=== PATIENT | female | born 1940 | race Hispanic/Latino ===

== ENCOUNTER 2016-08-26 07:43 | Day surgery (SDC) | payer MEDICARE ==
[2016-08-18 10:55] VITALS: BMI 29.5
[2016-08-26] MEDS ORDERED: Propofol 10 mg/ml Inj (20 ML) ONE (09:40)
[2016-08-26] MEDS ORDERED: Midazolam 2 MG/2 ML VIAL ONE (09:40)
[2016-08-26 11:20] VITALS: BP 116/67; PULSE 68; RESP 16; TEMP 98.1; O2SAT 98
== END 2016-08-26 11:38 | disposition home or self-care (01) ==
LOC: ENDO 07:43
PROVIDERS: ATTEND Specialist
DX: D12.4 Benign neoplasm of descending colon (principal); K57.30 Diverticulosis of large intestine without perforation or abscess without bleeding; K64.8 Other hemorrhoids; Z12.11 Encounter for screening for malignant neoplasm of colon; E03.9 Hypothyroidism, unspecified; J45.909 Unspecified asthma, uncomplicated; J44.9 Chronic obstructive pulmonary disease, unspecified; I25.2 Old myocardial infarction; I25.10 Atherosclerotic heart disease of native coronary artery without angina pectoris; I73.9 Peripheral vascular disease, unspecified; E78.5 Hyperlipidemia, unspecified; Z90.49 Acquired absence of other specified parts of digestive tract; Z88.2 Allergy status to sulfonamides; Z88.8 Allergy status to other drugs, medicaments and biological substances; D56.9 Thalassemia, unspecified; R19.7 Diarrhea, unspecified
CPT/HCPCS: 45380; 87045; 87177; 87209; 87324; 88305; J2250; J2704

== ENCOUNTER 2017-06-04 12:33 | Inpatient (IN) | payer MEDICARE ==
[2017-06-04 12:40] VITALS: BMI 26.4
[2017-06-04] MEDS ORDERED: Sodium Chloride 0.9% 1,000 ML IV SCH (13:45)
[2017-06-04 13:56] LABS: BASO # 0.01 K/mm3 (0.0-2.0); BASO % 0.2 % (0.0-3.0); EOS % 0.6 % (1.5-5.0); GRAN # 3.07 (1.4-6.5); GRAN % 64.1 % (50.0-68.0); HEMOGLOBIN 7.7 g/dL (12.0-16.0); LYMPH # 1.3 (1.2-3.4); LYMPH % 26.3 % (22.0-35.0); MEAN CELL VOLUME 66.6 fl (80.0-105.0); MEAN CORPUSCULAR HEMOGLOBIN 21.3 pg (25.0-35.0); MEAN PLATELET VOLUME 9.7 fl (7.0-11.0); MONO # 0.4 (0.1-0.6); MONO % 8.8 % (1.0-6.0); RBC 3.62 10^6/uL (3.5-6.1); RED CELL DISTRIBUTION WIDTH 17.2 % (11.5-14.5); WHITE BLOOD COUNT 4.8 10^3/ul (4.5-11.0)
--- NOTE | 2017-06-04 13:57 | RAD ---
HISTORY: r/o infiltrate COMPARISON: 11/14/2015 FINDINGS: LUNGS: No active pulmonary disease. PLEURA: No significant pleural effusion identified, no pneumothorax apparent. CARDIOVASCULAR: Normal. OSSEOUS STRUCTURES: No significant abnormalities. VISUALIZED UPPER ABDOMEN: Normal. OTHER FINDINGS: None. IMPRESSION: No active disease.
[2017-06-04 14:06] LABS: ALB/GLOB RATIO 1.2 (1.1-1.8); ALBUMIN 3.6 g/dL (3.0-4.8); ALT/SGPT 36 U/L (7-56); AST/SGOT 25 U/L (14-36); BLOOD UREA NITROGEN 45 mg/dL (7-21); CALCIUM 9.8 mg/dL (8.4-10.5); GFR AFRICAN-AMERICAN 38; GFR NON-AFRICAN AMERICAN 31
[2017-06-04 14:17] LABS: B-TYPE NATRIURETIC PEPTIDE 2340 pg/mL (0-450); TROPONIN I 0.04 ng/mL
--- NOTE | 2017-06-04 14:19 | ED PDOC ---
Arrival/HPI - General Chief Complaint: Weakness/Neurological Deficit Time Seen by Provider: 06/04/17 12:51 Historian: Patient, Spouse () - History of Present Illness Narrative History of Present Illness (Text): 06/04/17 13:46 A 77 year old female, whose past medical history includes hypertension and coronary artery disease, is brought in by and presents to the emergency department for generalized weakness, confusion, decreased PO intake. Per , patient had CT and Carotid Ultrasound done 2 days ago, which was arranged by PMD. Patient denies any fever, cough, shortness of breath, chest pain, abdominal pain, nausea, vomiting, heamturia, bloody/dark stool, or any other complaints at this time. PMD: Dr. Galaviz Past Medical History - Provider Review Nursing Documentation Reviewed: Yes - Tetanus Immunization Tetanus Immunization: Up to Date - Cardiac Hx Pacemaker: No - Pulmonary Hx Respiratory Disorders: Yes Hx Asthma: Yes Hx Bronchitis: Yes Hx Chronic Obstructive Pulmonary Disease (COPD): Yes - Neurological Hx Paralysis: No - HEENT Hx HEENT Disorder: No - Hematological/Oncological Hx Blood Transfusions: Yes Hx Blood Transfusion Reaction: No - Integumentary Hx Dermatological Disorder: No - Musculoskeletal/Rheumatological Hx Musculoskeletal Disorders: Yes - Gastrointestinal Hx Diverticulitis: Yes (colon resectin with colostomy 10 yrs ago, colostomy reversal 6 mo later) - Psychiatric Hx Emotional Abuse: No Hx Physical Abuse: No Hx Substance Use: No - Surgical History Hx Appendectomy: Yes Hx Cardiac Catheterization: Yes Hx Cholecystectomy: Yes Hx Hysterectomy: Yes - Anesthesia Hx Anesthesia Reactions: No Hx Malignant Hyperthermia: No - Suicidal Assessment Feels Threatened In Home Enviroment: No Family/Social History - Physician Review Nursing Documentation Reviewed: Yes Family/Social History: No Known Family HX Smoking Status: Former Smoker Hx Alcohol Use: No Hx Substance Use: No Hx Substance Use Treatment: No Allergies/Home Meds Allergies/Adverse Reactions: Allergies sulfamethoxazole [From Bactrim] Allergy (Verified 06/04/17 18:34) ANAPHYLAXIS trimethoprim [From Bactrim] Allergy (Verified 06/04/17 18:34) ANAPHYLAXIS Home Medications: Home Meds Medication Instructions Recorded Confirmed Albuterol Sulfate [Proair Hfa] 1 puff IH PRN PRN 08/18/16 06/04/17 Aspirin [Ecotrin] 81 mg PO DAILY 08/18/16 06/04/17 Clopidogrel [Plavix] 75 mg PO DAILY 08/18/16 06/04/17 Furosemide 40 mg PO DAILY 08/18/16 06/04/17 Cholestyramine [Questran] 4 gm PO DAILY 06/04/17 06/04/17 Lisinopril [Zestril] 2.5 mg PO DAILY 06/04/17 06/04/17 Metoprolol Succinate [Toprol Xl] 25 mg PO DAILY 06/04/17 06/04/17 Review of Systems - Physician Review All systems were reviewed & negative as marked: Yes - Review of Systems Constitutional: Other (generalized weakness). absent: Fevers Respiratory: absent: SOB, Cough Cardiovascular: absent: Chest Pain Gastrointestinal: Appetite Changes (decreased PO intake). absent: Abdominal Pain, Nausea, Vomiting Psychiatric: Other (confusion) Physical Exam Vital Signs Reviewed: Yes Vital Signs Temp Pulse Resp BP Pulse Ox 06/04/17 20:10 98 F 80 19 138/80 97 06/04/17 18:43 97.8 F 79 18 116/62 06/04/17 18:34 98 F 80 19 129/69 98 06/04/17 17:58 97.8 F 88 18 140/65 06/04/17 17:51 98 F 76 18 116/62 99 06/04/17 17:38 98.1 F 75 18 117/59 L 06/04/17 17:34 98.1 F 75 18 117/59 L 100 06/04/17 12:51 98.0 F 79 19 113/51 L 94 L Temperature: Afebrile Blood Pressure: Normal Pulse: Regular Respiratory Rate: Normal Appearance: Positive for: Well-Appearing Pain Distress: None Mental Status: Positive for: Alert and Oriented X 3 - Systems Exam Head: Present: Atraumatic, Normocephalic Pupils: Present: PERRL Extroacular Muscles: Present: EOMI Conjunctiva: Present: Other (pale) Mouth: Present: Moist Mucous Membranes Neck: Present: Normal Range of Motion Respiratory/Chest: Present: Clear to Auscultation, Good Air Exchange. No: Respiratory Distress, Accessory Muscle Use Cardiovascular: Present: Regular Rate and Rhythm, Normal S1, S2. No: Murmurs Abdomen: Present: Normal Bowel Sounds. No: Tenderness, Distention, Peritoneal Signs Back: Present: Normal Inspection Upper Extremity: Present: Normal Inspection. No: Cyanosis, Edema Lower Extremity: Present: Normal Inspection. No: Edema Neurological: Present: GCS=15, CN II-XII Intact, Speech Normal Skin: Present: Pale (slightly) Psychiatric: Present: Alert, Oriented x 3, Normal Insight, Normal Concentration Medical Decision Making ED Course and Treatment: 06/04/17 13:51 Impression: 77 year old with generalized weakness, confusion, and decreased PO intake. Physical exam shows conjuctiva is pale and skin is slightly pale; no other acute findings on examination. Plan: -- EKG -- Chest X-ray -- Labs -- IV Fluds -- Urine Culture -- Urinalysis -- Reassess and disposition Prior Visits: Notes and results from previous visits were reviewed. Patient was last seen in the emergency department on 11/14/2015 for back pain. Patient was admitted. Progress Notes: 06/04/2017 13:55 Chest X-ray IMPRESSION: No active disease. Dictator: Case Bella MD EKG: Ordered, reviewed, and independently interpreted the EKG. Rate : 77 BPM Rhythm : NSR Interpretation : No ST-segment elevations or depressions, no T-wave inversions, normal intervals. Comparison : No previous EKG for comparison. 06/04/17 14:[address] Galaviz, whom states patient is to be admitted. Patient agrees to have blood transfusions performed here in the ER. - Lab Interpretations Lab Results: 06/04/17 11:30 06/04/17 11:30 Lab Results 06/04/17 14:27: Urine Color Light yellow, Urine Appearance Clear, Urine pH 6.0, Ur Specific [place] 1.010, Urine Protein Trace H, Urine Glucose (UA) Negative, Urine Ketones Negative, Urine Blood Negative, Urine Nitrate Negative, Urine Bilirubin Negative, Urine Urobilinogen 0.2, Ur Leukocyte Esterase Small H, Urine RBC 0 - 2, Urine WBC 5 - 10, Ur Epithelial Cells 4 - 5, Amorphous Sediment Few, Urine Bacteria Mod 06/04/17 13:29: POC Glucose (mg/dL) 113 H 06/04/17 11:30: Free T4 0.88, Total T3 0.79 L, TSH 3rd Generation 2.66 06/04/17 11:30: Sodium 138, Potassium 4.8, Chloride 117 H, Carbon Dioxide 12 L, Anion Gap 14, BUN 45 H, Creatinine 1.6 H, Est GFR ( Amer) 38, Est GFR ( Non-Af Amer) 31, Random Glucose 115 H, Calcium 9.8, Magnesium 2.1, Total Bilirubin < 0.1 L, AST 25, ALT 36, Alkaline Phosphatase 58, Lactate Dehydrogenase 332 L, Total Creatine Kinase 37, Troponin I 0.04 D, NT-Pro-B Natriuret Pep 2340 H, Total Protein 6.5, Albumin 3.6, Globulin 2.9, Albumin/ Globulin Ratio 1.2 06/04/17 11:30: WBC 4.8, RBC 3.62, Hgb 7.7 L, Hct 24.1 L, MCV 66.6 L, MCH 21.3 L , MCHC 32.0, RDW 17.2 H, Plt Count 282, MPV 9.7, Gran % 64.1, Lymph % (Auto) 26.3, [place] % (Auto) 8.8 H, Eos % (Auto) 0.6 L, Baso % (Auto) 0.2, Gran # 3.07, Lymph # (Auto) 1.3, [place] # (Auto) 0.4, Eos # (Auto) 0.0, Baso # (Auto) 0.01 I have reviewed the lab results: Yes - RAD Interpretation Radiology Orders: 06/04/17 12:54 CHEST PORTABLE [RAD] Stat - Medication Orders Current Medication Orders: Acetaminophen (Tylenol 325mg Tab) 650 mg PO Q4H PRN PRN Reason: pain Last Admin: 06/04/17 21:40 Dose: 650 mg MAR Pain/Vitals Document 06/04/17 21:40 RS (Rec: 06/04/17 21:41 RS [id number]) Pain Reassessment Is This A Pain ReAssessment? No Sleep Is patient sleeping during reassessment? No Presence of Pain Presence of Pain Yes Pain Scale Used Pain Scale Used FLACC Location Pain Location Body Site Back Albuterol Sulfate (Albuterol 0.5% Inhal Valery (2.5 Mg/0.5 Ml) Ud) 2.5 mg IH [id number] PRN PRN Reason: SOB Aspirin (Ecotrin) 81 mg PO DAILY [facility] Cholestyramine Resin (Questran) 4 gm PO DAILY [facility] Clopidogrel Bisulfate (Plavix) 75 mg PO DAILY [facility] Dextrose/Sodium Chloride (Dextrose 5%/0.9% Ns 1000 Ml) 1,000 mls @ 60 mls/hr IV .[id number] [facility] Last Admin: 06/04/17 21:41 Dose: 60 mls/hr eMAR Start Stop Document 06/04/17 21:41 RS (Rec: 06/04/17 21:41 RS [id number]) Intravenous Solution Start Date 06/04/17 Start Time 21:41 Lisinopril (Zestril) 2.5 mg PO DAILY [facility] Metoprolol Succinate (Toprol Xl) 25 mg PO DAILY [facility] Discontinued Medications Sodium Chloride (Sodium Chloride 0.9%) 1,000 mls @ 100 mls/hr IV .Q10H [facility] Last Admin: 06/04/17 14:33 Dose: 100 mls/hr eMAR Start Stop Document 06/04/17 14:33 LA (Rec: 06/04/17 14:34 LA [id number]) Intravenous Solution Start Date 06/04/17 Start Time 14:34 Ceftriaxone Sodium (Rocephin 1 Gram Ivpb) 1 gm in 100 mls @ 100 mls/hr IVPB STAT STA PRN Reason: Protocol Stop: 06/04/17 16:44 Last Admin: 06/04/17 16:17 Dose: 100 mls/hr eMAR Start Stop Document 06/04/17 16:17 LA (Rec: 06/04/17 16:17 LA [id number]) Intravenous Solution Start Date 06/04/17 Start Time 16:17 - Scribe Statement The provider has reviewed the documentation as recorded by the Radha Becker Provider Scribe Attestation: All medical record entries made by the Tevinibrocio were at my direction and personally dictated by me. I have reviewed the chart and agree that the record accurately reflects my personal performance of the history, physical exam, medical decision making, and the department course for this patient. I have also personally directed, reviewed, and agree with the discharge instructions and disposition. Disposition/Present on Arrival - Present on Arrival Any Indicators Present on Arrival: No History of DVT/PE: No History of Uncontrolled Diabetes: No Urinary Catheter: No History of Decub. Ulcer: No History Surgical Site Infection Following: None - Disposition Have Diagnosis and Disposition been Completed?: Yes Diagnosis: Dehydration, Anemia, UTI (urinary tract infection), Acute renal failure Disposition: HOSPITALIZED Disposition Time: 14:20 Condition: FAIR
[2017-06-04 15:32] LABS: URINE BILIRUBIN NEGATIVE (NEGATIVE); URINE BLOOD NEGATIVE (NEGATIVE); URINE GLUCOSE (UA) NEGATIVE (NEGATIVE); URINE LEUKOCYTE ESTERASE SMALL Leu/uL (NEGATIVE); URINE PROTEIN TRACE mg/dL (<30 mg/dL); URINE UROBILINOGEN 0.2 E.U./dL (<1 E.U./dL)
[2017-06-04 15:37] LABS: URINE APPEARANCE CLEAR (CLEAR); URINE COLOR LIGHT YELLOW (YELLOW)
[2017-06-04 15:43] LABS: URINE AMORPHOUS SEDIMENT FEW; URINE BACTERIA MOD (NEG); URINE RBC 0 - 2 /hpf (0-2)
[2017-06-04] MEDS ORDERED: cefTRIAXone 1 gm 1 GM/100 ML BAG IVPB STA (15:45)
[2017-06-04 18:07] LABS: FREE T4 0.88 ng/dL (0.78-2.19)
[2017-06-04 18:20] LABS: T3 0.79 ng/mL (0.97-1.69)
[2017-06-04] MEDS ORDERED: Albuterol HFA 90 mcg/actuation (8 g) IH PRN (20:40)
[2017-06-04] MEDS ORDERED: Albuterol 0.5% Inhal Sol (2.5 mg/0.5 ml) UD IH PRN (21:06)
[2017-06-04] MEDS: Dextrose 5%/0.9% NS 1,000 ML IV SCH (21:41)
--- NOTE | 2017-06-04 21:58 | HP ---
The patient is a 77-year-old white female who was seen in the ER holding area. CHIEF COMPLAINT: Weakness with difficulty ambulating. HISTORY OF PRESENT ILLNESS: The patient is a 77-year-old female whose past medical history includes hypertension, coronary artery disease, who was brought to the emergency department for generalized weakness, confusion, decreased p.o. intake. As per the patient and her , the patient had a CT scan and carotid ultrasound done 2 days prior to this admission. Patient denied any fever, shortness of breath or chest pain. She denied abdominal pain, nausea, vomiting or diarrhea. PAST MEDICAL HISTORY: As stated above. FAMILY HISTORY: Noncontributory. SOCIAL HISTORY: The patient is a nonsmoker. PAST SURGICAL HISTORY: In the past, is positive for an appendectomy, cardiac cath, cholecystectomy and hysterectomy. ALLERGIES: SULFAMETHOXAZOLE AND TRIMETHOPRIM. REVIEW OF SYSTEMS: Other than generalized weakness, was entirely unremarkable. PHYSICAL EXAMINATION: VITAL SIGNS: At this time are temperature of 97.8, pulse rate of 88, blood pressure 140/65, respiratory rate of 18 with an O2 saturation of 98% on room air. HEENT: PERRLA. EOMI. No icterus is present. NECK: Shows a full range of motion. Supple. There were no bruise or jugular venous distention. LUNGS: Clear to auscultation and percussion bilaterally. HEART: Regular rate and rhythm. ABDOMEN: Soft, it is nontender. There is no organomegaly. Bowel sounds are normoactive. EXTREMITIES: Show no deformities or edema. NEUROLOGIC: There are no focal motor deficits. LABORATORY DATA: WBC on admission is 4.8, hemoglobin and hematocrit 7.7 and 24.1 with an MCV of 66.6, MCH of 21.3. Patient's normal hemoglobin is in the upper 8's to lower 9's. SMA-23 shows carbon dioxide of 12, chloride of 117, BUN of 45, creatinine of 1.6. Nonfasting glucose of 115 and a BNP of 2340. T3 was 0.79, T4 at 0.88, TSH 2.66. The patient will be admitted. She is being transfused 1 unit of blood at this time. We will follow hemoglobins and hematocrits. We will hydrate patient with D5 normal saline at [address] Banda, her appliquer zigzag, has been consulted. ADMITTING DIAGNOSES: 1. Dehydration. 2. Coronary artery disease. 3. Hypertension. She will admitted with her home medications with the exception of furosemide, which is currently being held. Further orders will depend on following hemoglobins and hematocrits and BUN and creatinine. Jean-Paul Jane MD
[2017-06-04] MEDS ORDERED: Pneumococcal 23-Valent Vaccine IM ONE (23:52)
[2017-06-04] MEDS ORDERED: Influenza Vaccine 60 mcg/0.5 mL SYR (4YR UP) IM ONE (23:52)
[2017-06-05 08:20] LABS: BASO # 0.01 K/mm3 (0.0-2.0); BASO % 0.2 % (0.0-3.0); EOS # 0.1 (0.0-0.7); EOS % 2.2 % (1.5-5.0); GRAN # 2.14 (1.4-6.5); GRAN % 51.9 % (50.0-68.0); HEMOGLOBIN 8.4 g/dL (12.0-16.0); LYMPH # 1.4 (1.2-3.4); MEAN CELL VOLUME 68.5 fl (80.0-105.0); MEAN CORPUSCULAR HGB CONC 32.2 g/dl (31.0-37.0); MEAN PLATELET VOLUME 9.7 fl (7.0-11.0); MONO # 0.4 (0.1-0.6); MONO % 10.7 % (1.0-6.0); RBC 3.81 10^6/uL (3.5-6.1); RED CELL DISTRIBUTION WIDTH 19.6 % (11.5-14.5); WHITE BLOOD COUNT 4.1 10^3/ul (4.5-11.0)
[2017-06-05 09:02] LABS: ALB/GLOB RATIO 1.1 (1.1-1.8); ALBUMIN 3.1 g/dL (3.0-4.8); CALCIUM 9.7 mg/dL (8.4-10.5)
[2017-06-05] MEDS: Cholestyramine 4 gm/Pkt UD PO SCH (09:18)
[2017-06-05] MEDS: Metoprolol Succinate 25 mg XL Tab PO SCH (09:18)
--- NOTE | 2017-06-05 10:28 | CARD ---
APPROVED REPORT EKG Measurement Heart [id number] <Conclusion> RSR RBBB No change
--- NOTE | 2017-06-05 12:52 | PN ---
SUBJECTIVE: The patient was seen and examined at bedside on the remote telemetry newberry. No acute events overnight. She remains afebrile and hemodynamically stable. She is s/p transfusion of 1 unit of PRBCs with an appropriate response in hemoglobin. This morning she states she feels okay but continues to endorse weakness and otherwise offers no complaints. OBJECTIVE VITAL SIGNS: Temperature 97.6, pulse 80, blood pressure 138/82, respiratory rate 18, and oxygen saturation 94% on room air. GENERAL: No apparent distress. HEENT: PERRL. EOMI. No scleral icterus. Mild conjunctival pallor is noted. NECK: No JVD. LUNGS: Clear to auscultation. CARDIOVASCULAR: Regular rate and rhythm. Normal S1 and S2. ABDOMEN: Normoactive bowel sounds. Soft, nontender, nondistended. EXTREMITIES: No edema. NEUROLOGIC: Awake, alert and oriented x3. No focal motor deficits. LABORATORY DATA: WBC 4.1, hemoglobin 8.4, hematocrit 26, platelets 240,000. MCV 68.5. Chemistry pending. ASSESSMENT: The patient is a 77 year old woman with a past medical history of CAD, hypertension, COPD, anxiety disorder and iron deficiency anemia secondary to history of diverticular bleed who presented to [facility] for evaluation of a several day history of lethargy, malaise and generalized weakness and who was admitted for management of symptomatic anemia and dehydration. PLAN 1. Symptomatic anemia. The patient is s/p transfusion of 1 unit of PRBCs. Her baseline hemoglobin is 8-9. The patient had a colonoscopy 1 year ago which demonstrated diverticulosis as well as a 6-mm polyp in the descending colon and internal hemorrhoids. We will continue to monitor CBC daily. We will check stool for occult blood. We will start Feosol 324 mg p.o. t.i.d. 2. Acute kidney injury. Labs demonstrate a creatinine of 1.6 with an elevated BUN of 45, well above the patient's baseline, likely representing prerenal azotemia in the setting of poor p.o. intake. Continue to encourage p.o. intake. Continue with IV fluids. We will continue to monitor CMP daily. 3. CAD s/p PCI with stent placement. Continue Aspirin 81 mg p.o. daily, Plavix 75 mg p.o. daily, Lisinopril 2.5 mg p.o. daily and Toprol XL 25 mg p.o. daily. 4. COPD. Continue supplemental oxygen and bronchodilators as needed. 5. Anxiety disorder. The patient is on Xanax as needed on an outpatient basis but given her waxing and waning mentation, we will hold sedatives at present. We will continue to monitor and resume outpatient medicines as needed. 6. Prophylaxis. We will start Protonix 40 mg p.o. daily for GI prophylaxis and SCDs for DVT prophylaxis. CODE STATUS: Full code. Lino Jane MD MTDD
[2017-06-05] MEDS: Dextrose 5%/0.9% NS 1,000 ML IV SCH (13:26)
--- NOTE | 2017-06-06 01:29 | CON ---
CARDIOLOGY CONSULTATION DATE: REASON FOR CONSULTATION: Unsteadiness and history of coronary artery disease. HISTORY OF PRESENT ILLNESS: The history was obtained from the patient and the patient's who was at the bedside. The patient is a 77-year-old female who has a history of hypertension, coronary artery disease, and history of stroke in the past, who has presented because of unsteady gait according to the who noticed also generalized weakness and very poor oral intake. The patient denies any chest pain or shortness of breath at this time and is unaware of any melena. The patient was noticed by the to be forgetful and at times agitated, and according to the she ruined a cheque book because of her confusion. MEDICATIONS: Albuterol inhaler q. 6 hours, D5 normal saline at 60 mL an hour, aspirin 81 mg once a day, Plavix 75 mg once a day, Protonix 40 mg p.o. once a day, Questran 4 g p.o. daily, Lopressor 25 mg daily, Zestril 2.5 mg once a day. REVIEW OF SYSTEMS: No fever or chills. No syncope or fall and no seizure activity. PHYSICAL EXAMINATION: GENERAL: The patient is an elderly female who does not appear to be in any acute distress. VITAL SIGNS: Blood pressure 133/62, heart rate 84, temperature 97.6, respirations 18. HEENT: Pale conjunctivae. CHEST: Clear. HEART: S1, S2 regular. ABDOMEN: Soft. EXTREMITIES: No edema or calf tenderness. LABORATORY DATA: Hemoglobin and hematocrit on admission 7.7 and 24.1, and today after 1 unit of packed RBC transfusion hemoglobin and hematocrit 8.4 and 26.1, white count 4.1, platelet count 240,000. SMA-7: Sodium 140, potassium 4.1, chloride 119, CO2 of 11, glucose 96, BUN 41, creatinine 1.4. Admitting BUN and creatinine were 45 and 1.6. TSH level is within normal limits. ProBNP is 2340. EKG revealed sinus rhythm with right bundle-branch block. Most recent SPECT myocardial images in 05/2016 was read as probably normal SPECT myocardial perfusion study. Fixed apical defect could be due to breast attenuation. Normal gated wall motion of the left ventricle. Most recent carotid Doppler this month, 70% stenosis of the right carotid bulb, 40% to 59% stenosis of the proximal internal carotid artery and severely thrombosed vertebral arteries. Head CT scan performed on 05/31/2017, no acute findings. ASSESSMENT: 1. History of coronary artery disease, most recent single-photon emission computed tomography myocardial perfusion images were negative last year. 2. Unsteady gait. 3. Right carotid artery disease. 4. Hypertension. 5. Anemia requiring packed red blood cell transfusion. 6. Dehydration and prerenal azotemia. CONDITIONS: Continue current aspirin 81 mg once a day, Feosol 324 mg t.i.d., Plavix 75 mg once a day, Protonix 40 mg once a day, Toprol-XL 25 mg once a day, Zestril 2.5 mg once a day. Consider neurological evaluation and repeat CT scan. Sage Samuel MD
[2017-06-06] MEDS: Pantoprazole 40 mg EC Tab PO SCH (05:41)
--- NOTE | 2017-06-06 06:03 | CP.PCM.PN ---
Subjective - Date & Time of Evaluation Date of Evaluation: 06/06/17 Time of Evaluation: 01:00 - Subjective Subjective: pt is aggitated states she wants to go home . tried to reorient her but still insisting on going home , made her talk to on the phone but no improvement . Objective - Vital Signs/Intake and Output Vital Signs (last 24 hours): Temp Pulse Resp BP Pulse Ox 97.4 F L 93 H 20 153/81 H 99 06/06/17 00:01 06/06/17 04:41 06/06/17 00:01 06/06/17 00:01 06/06/17 00:01 Intake and Output: 06/05/17 06/06/17 18:59 06:59 Intake Total 0 360 Output Total 300 Balance 0 60 - Medications Medications: Current Medications Acetaminophen (Tylenol 325mg Tab) 650 mg PO Q4H PRN PRN Reason: pain Last Admin: 06/05/17 19:08 Dose: 650 mg Albuterol Sulfate (Albuterol 0.5% Inhal Valery (2.5 Mg/0.5 Ml) Ud) 2.5 mg IH [id number] PRN PRN Reason: SOB Aspirin (Ecotrin) 81 mg PO DAILY [facility] Last Admin: 06/05/17 09:17 Dose: 81 mg Cholestyramine Resin (Questran) 4 gm PO DAILY [facility] Last Admin: 06/05/17 09:18 Dose: 4 gm Clopidogrel Bisulfate (Plavix) 75 mg PO DAILY [facility] Last Admin: 06/05/17 09:18 Dose: 75 mg Ferrous Sulfate (Feosol) 324 mg PO TID [facility] Last Admin: 06/05/17 17:06 Dose: 324 mg Dextrose/Sodium Chloride (Dextrose 5%/0.9% Ns 1000 Ml) 1,000 mls @ 60 mls/hr IV .[id number] [facility] Last Admin: 06/05/17 13:26 Dose: 60 mls/hr Lisinopril (Zestril) 2.5 mg PO DAILY [facility] Last Admin: 06/05/17 09:19 Dose: 2.5 mg Metoprolol Succinate (Toprol Xl) 25 mg PO DAILY [facility] Last Admin: 06/05/17 09:18 Dose: 25 mg Pantoprazole Sodium (Protonix Ec Tab) 40 mg PO 0600 [facility] Last Admin: 06/06/17 05:41 Dose: 40 mg - Labs Labs: 06/05/17 08:00 06/05/17 08:00 - Constitutional Appears: No Acute Distress - Head Exam Head Exam: NORMOCEPHALIC - Eye Exam Pupil Exam: PERRL - ENT Exam ENT Exam: Mucous Membranes Moist - Neck Exam Neck Exam: Full ROM - Cardiovascular Exam Cardiovascular Exam: RRR, +S1, +S2 - GI/Abdominal Exam GI & Abdominal Exam: Soft - Rectal Exam Rectal Exam: Deferred - Extremities Exam Extremities Exam: Full ROM - Psychiatric Exam Psychiatric exam: Agitated - Skin Skin Exam: Dry, Warm Assessment and Plan - Assessment and Plan (Free Text) Assessment: aggitation. Plan: ativan 0.5 mg x2 given to pt.
[2017-06-06 07:04] LABS: BASO # 0.01 K/mm3 (0.0-2.0); BASO % 0.2 % (0.0-3.0); EOS # 0.1 (0.0-0.7); EOS % 1.3 % (1.5-5.0); GRAN # 3.23 (1.4-6.5); GRAN % 58.3 % (50.0-68.0); HEMOGLOBIN 8.8 g/dL (12.0-16.0); LYMPH # 1.7 (1.2-3.4); LYMPH % 30.1 % (22.0-35.0); MEAN CELL VOLUME 68.2 fl (80.0-105.0); MEAN CORPUSCULAR HEMOGLOBIN 21.9 pg (25.0-35.0); MEAN CORPUSCULAR HGB CONC 32.1 g/dl (31.0-37.0); MEAN PLATELET VOLUME 9.7 fl (7.0-11.0); MONO # 0.6 (0.1-0.6); MONO % 10.1 % (1.0-6.0); RBC 4.02 10^6/uL (3.5-6.1); RED CELL DISTRIBUTION WIDTH 19.3 % (11.5-14.5); WHITE BLOOD COUNT 5.5 10^3/ul (4.5-11.0)
[2017-06-06 07:28] LABS: ALB/GLOB RATIO 1.2 (1.1-1.8); ALBUMIN 3.4 g/dL (3.0-4.8); CALCIUM 9.9 mg/dL (8.4-10.5)
[2017-06-06] MEDS: Sodium Chloride 0.9% 1,000 ML IV SCH ×2 (11:00→22:34)
[2017-06-06] MEDS: Cholestyramine 4 gm/Pkt UD PO SCH (13:22)
[2017-06-06] MEDS: Metoprolol Succinate 25 mg XL Tab PO SCH (13:22)
--- NOTE | 2017-06-06 15:24 | PN ---
SUBJECTIVE: The patient was seen and examined at bedside on the remote telemetry newberry. Overnight she was noted to be quite confused and agitated despite redirection with her and daughter and remained quite delirious. She was evaluated by the house physician and administered Ativan 0.5 mg IV x1 with subsequent improvement in her symptoms. This morning she is drowsy and sleeping but arousable and offers no complaints. PHYSICAL EXAMINATION: VITAL SIGNS: Temperature 97.3, pulse 89, blood pressure 155/94, respiratory rate 20, oxygen saturation 95% on room air. GENERAL: No apparent distress. HEENT: PERRL. EOMI. No scleral icterus. Mild conjunctival pallor is noted. NECK: No JVD. LUNGS: Clear to auscultation. CARDIOVASCULAR: Regular rate and rhythm. Normal S1 and S2. ABDOMEN: Normoactive bowel sounds. Soft, nontender, nondistended. EXTREMITIES: No edema. NEUROLOGIC: Somnolent, but arousable. Alert, oriented to person only. Moving all extremities. LABORATORY DATA: WBC 5.5 with 58% neutrophils, hemoglobin 8.8, hematocrit 27, platelets 269, MCV 68. CMP reviewed and with improving renal function. ASSESSMENT: The patient is a 77 year old woman with a past medical history of CAD, HTN, COPD , anxiety disorder and iron deficiency anemia who presented for evaluation of a several day history of lethargy, malaise and generalized weakness and who was admitted for management of symptomatic anemia and dehydration. PLAN: 1. Symptomatic anemia s/p transfusion of 1 unit of PRBCs. Hb remains at baseline (8-9). Stool occult blood pending. We will continue to monitor CBC daily and continue Feosol 324 mg p.o. t.i.d. 2. Acute kidney injury, resolving. Labs demonstrate favorably trending renal function. We will continue with normal saline at 100 mL per hour. 3. Altered mental status, etiology likely secondary to toxic metabolic encephalopathy in the setting of uremia and dehydration. Continue to encourage family to redirect the patient. We will continue with IV fluid hydration. Of note, the patient did have an outpatient CT scan performed 3 days prior to presentation which was negative for any acute pathology. We will start Ativan 1 mg IV at bedtime. 4. CAD s/p PCI with stent placement. Continue ASA 81 mg p.o. daily, Plavix 75 mg p.o. daily, Lisinopril 2.5 mg p.o. daily, and Toprol-XL 25 mg p.o. daily. Input from Dr. Samuel noted and appreciated. 5. COPD. Continue supplemental oxygen and bronchodilators as needed. 6. Anxiety disorder. As above, we will start Ativan 1 mg IV at bedtime. 7. Prophylaxis. Continue Protonix 40 mg p.o. daily for GI prophylaxis and SCDs for DVT prophylaxis. CODE STATUS: Full code. Lino Jane MD [email or web address]
[2017-06-06] MEDS: guaiFENesin DM 100 mg-10 mg/5 ml UD PO PRN (16:00)
[2017-06-06] MEDS: Albuterol 0.5% Inhal Sol (2.5 mg/0.5 ml) UD IH PRN (18:11)
--- NOTE | 2017-06-06 18:39 | PN ---
DATE: SUBJECTIVE: The patient was confused overnight and the was called at the renal medicine specialist hours. The patient initiated Ativan intravenously and is currently sedated. No reported ventricular arrhythmia or hypotension. PHYSICAL EXAMINATION: VITAL SIGNS: Blood pressure 155/94, earlier was 153/81; heart rate 89; temperature 97.3; respirations 20. HEENT: Pale conjunctivae. CHEST: Clear. HEART: Sounds regular. EXTREMITIES: No edema. LABORATORY DATA: Hemoglobin and hematocrit 8.8 and 27.2. White count and platelet counts are within normal limits. SMA-7; sodium 143, potassium 4, chloride 119, CO2 of 14, glucose 93, BUN 26, and creatinine 1.2. Urine culture, no growth. Stool for C. diff is negative. ASSESSMENT: 1. History of coronary artery disease. 2. Unsteady gait. 3. Right carotid artery disease. 4. Hypertension. 5. Anemia, requiring 1 unit of packed red blood cell transfusion. 6. Improve dehydration and improve prerenal azotemia. 7. Rule out underlying sepsis. CONDITIONS: Continue current aspirin 81 mg once a day, Plavix 75 mg once a day, normal saline at 100 mL an hour, Toprol-XL 25 mg daily, and Zestril 2.5 mg once a day. Sage Samuel MD
[2017-06-07] MEDS: Pantoprazole 40 mg EC Tab PO SCH (05:42)
[2017-06-07] MEDS: Metoprolol Succinate 25 mg XL Tab PO SCH (09:14)
[2017-06-07] MEDS: Cholestyramine 4 gm/Pkt UD PO SCH (09:16)
[2017-06-07] MEDS: Albuterol 0.5% Inhal Sol (2.5 mg/0.5 ml) UD IH PRN ×2 (10:01→18:16)
[2017-06-07 12:26] LABS: HEMOGLOBIN 8.4 g/dL (12.0-16.0); MEAN CELL VOLUME 68.4 fl (80.0-105.0); MEAN CORPUSCULAR HEMOGLOBIN 22.3 pg (25.0-35.0); MEAN CORPUSCULAR HGB CONC 32.7 g/dl (31.0-37.0); MEAN PLATELET VOLUME 9.4 fl (7.0-11.0); RBC 3.76 10^6/uL (3.5-6.1); RED CELL DISTRIBUTION WIDTH 19.6 % (11.5-14.5); WHITE BLOOD COUNT 5.1 10^3/ul (4.5-11.0)
[2017-06-07 12:41] LABS: ALB/GLOB RATIO 1.2 (1.1-1.8); ALBUMIN 3.1 g/dL (3.0-4.8); ALT/SGPT 38 U/L (7-56); AST/SGOT 32 U/L (14-36); BLOOD UREA NITROGEN 17 mg/dL (7-21); CALCIUM 9.6 mg/dL (8.4-10.5); GFR AFRICAN-AMERICAN > 60; GFR NON-AFRICAN AMERICAN 54
--- NOTE | 2017-06-07 13:03 | PN ---
SUBJECTIVE: The patient was seen and examined at the bedside on the remote telemetry newberry. Overnight she was noted to again to be confused and per my discussion with the nursing staff, she continues to have sundowning. This morning she is calm but remains confused but overall is improving and offers no complaints. OBJECTIVE: VITAL SIGNS: Temperature 97.6, pulse 74, blood pressure 159/75, respiratory rate 20, oxygen saturation 99% on room air. GENERAL: Somnolent woman, lying in bed, in no apparent distress. HEENT: PERRL. EOMI. No scleral icterus. Mild conjunctival pallor is noted. NECK: Supple. Full range of motion. No JVD. No bruits. LUNGS: Clear to auscultation. CARDIOVASCULAR: Regular rate and rhythm. Normal S1 and S2. ABDOMEN: Normoactive bowel sounds. Soft, nontender, and nondistended. EXTREMITIES: No edema. NEUROLOGIC: Somnolent, but arousable. Alert and oriented to person only. Moving all extremities. LABORATORY DATA: Morning labs are pending. Stool occult blood is negative. ASSESSMENT: The patient is a 77 year old woman with a past medical history of CAD, HTN, COPD , anxiety disorder and iron deficiency anemia who presented for evaluation of several day history of lethargy, malaise and generalized weakness and who was admitted for management of symptomatic anemia and dehydration and whose hospital course was complicated by AMS. PLAN: 1. Altered mental status, etiology likely secondary to toxic metabolic encephalopathy in the setting of uremia and dehydration. The patient has been on normal saline at 100 mL per hour and with favorably trending renal function. Morning labs are pending to reassess renal function. We will continue to encourage p.o. intake. 2. Acute kidney injury, etiology secondary to prerenal azotemia in the setting of poor p.o. intake. As above, prior labs have demonstrated a favorably trending renal function. We will discontinue IV fluids and continue to encourage p.o. intake. 3. Symptomatic anemia s/p transfusion of 1 unit of PRBCs. Lab demonstrates stable H/H and stool occult blood is negative. Continue to monitor her CBC daily and continue Feosol 324 mg p.o. t.i.d. 4. CAD s/p PCI with stent placement. Continue Aspirin 81 mg p.o. daily, Plavix 75 mg p.o. daily, Lisinopril 2.5 mg p.o. daily, and Toprol-XL 25 mg p.o. daily. Input from Dr. Banda noted and appreciated. 5. COPD. Continue supplemental oxygen and bronchodilators as needed. 6. Anxiety disorder. Continue with Ativan 1 mg IV at bedtime. 7. Deconditioning. A PT evaluation has been ordered and is pending. 8. Prophylaxis. Continue Protonix for GI prophylaxis and SCDs for DVT prophylaxis. CODE STATUS: Full code. Lino Jane MD [facility]
--- NOTE | 2017-06-07 17:09 | PN ---
DATE: 06/07/2017 REASON FOR CONSULTATION: Cardiac evaluation, history of coronary artery disease, admitted with dehydration, severe anemia, altered mental status. SUBJECTIVE: Patient denies any chest pain, shortness of breath or any palpitation. OBJECTIVE: GENERAL: Patient is not in apparent distress, lying flat in the bed. VITAL SIGNS: Temperature afebrile, heart rate 90, blood pressure 159/75. HEENT: PERRLA. Extraocular muscles intact. NECK: Supple. No carotid bruit or thyromegaly. CHEST: Clear to auscultation. HEART: S1 and S2, regular. ABDOMEN: Soft. EXTREMITIES: Clubbing and cyanosis negative. LABORATORY DATA: Blood workup as follows; WBC 5.2, hemoglobin 8.4, hematocrit 25.7, platelet count 267. Chemistry shows sodium 140, potassium 4.2, chloride 118, carbon dioxide 17, anion gap 12, BUN 17, creatinine is 1. Troponin 0.04. IMPRESSION: Acute kidney injury, anemia, altered mental status, metabolic encephalopathy, history of coronary artery disease, history of multiple stent, unsteady gait, hypertension, history of peripheral arterial disease, status post percutaneous transluminal coronary angioplasty, dehydrated, prerenal azotemia. RECOMMENDATION: Patient will get IV fluid. Continue aspirin. Continue multivitamin. Continue ferrous sulfate. Continue Plavix. Continue low dose beta-mita. Continue lisinopril 2.5 mg daily. Follow up the lab in the morning. If remain stable, consider TCU for the rehab evaluation. We will follow with you. Patient's last stress test on 06/08/2016 probably normal myocardial perfusion study, fixed defect, ejection fraction 74%. We will get echo to assess LV function. We will get lipid profile as well as hemoglobin A1c in the morning as well as magnesium phosphate. Overall, patient is improving. Now we will put physical therapy for rehab too. Now we will put physical therapy for ambulation. Thank you, Dr. Jane, for providing us the opportunity in taking care of the patient, Pura [place]. Samuel Banda MD
[2017-06-07 21:08] LABS: ALB/GLOB RATIO 1.2 (1.1-1.8); ALBUMIN 3.5 g/dL (3.0-4.8); BASO # 0.01 K/mm3 (0.0-2.0); BASO % 0.2 % (0.0-3.0); EOS # 0.2 (0.0-0.7); EOS % 2.4 % (1.5-5.0); GRAN # 3.65 (1.4-6.5); GRAN % 57.8 % (50.0-68.0); HEMOGLOBIN 8.9 g/dL (12.0-16.0); LYMPH % 32.1 % (22.0-35.0); MEAN CELL VOLUME 68.2 fl (80.0-105.0); MEAN CORPUSCULAR HEMOGLOBIN 22.3 pg (25.0-35.0); MEAN CORPUSCULAR HGB CONC 32.7 g/dl (31.0-37.0); MEAN PLATELET VOLUME 9.2 fl (7.0-11.0); MONO # 0.5 (0.1-0.6); MONO % 7.5 % (1.0-6.0); RBC 3.99 10^6/uL (3.5-6.1); RED CELL DISTRIBUTION WIDTH 19.6 % (11.5-14.5); WHITE BLOOD COUNT 6.3 10^3/ul (4.5-11.0)
--- NOTE | 2017-06-07 23:33 | CP.PCM.PN ---
Subjective - Date & Time of Evaluation Date of Evaluation: 06/07/17 Time of Evaluation: 23:31 - Subjective Subjective: Patient was seen at bedside. Nurse calls to get order for some medication as patient was having sundowning. Patient is agitated. States that there is baby in her besides her. Medical record was reviewed. Later on , at time of shift change, nurse calls and tells that her BP is 177/99 , asymptomatic. She is getting lopressor 25 mg PO at 10 AM .I asked nurse to give now.(6:43AM.) This 77 year old white woman was admitted with weakness, confusion,decreased PO intake. Has been on IV ativan prn and seroquel. Has PMH of HTN,CAD,dementia, appendectomy, PVD, anemia, cardiac catheterization , cholecystectomy, hystrectomy,Fem Pop bypass. Objective - Vital Signs/Intake and Output Vital Signs (last 24 hours): Temp Pulse Resp BP Pulse Ox 98.7 F 87 18 161/79 H 100 06/07/17 16:00 06/07/17 18:00 06/07/17 16:00 06/07/17 16:00 06/07/17 16:00 Intake and Output: 06/07/17 06/08/17 18:59 06:59 Intake Total 725 540 Balance 725 540 - Medications Medications: Current Medications Acetaminophen (Tylenol 325mg Tab) 650 mg PO Q4H PRN PRN Reason: pain Last Admin: 06/07/17 00:08 Dose: 650 mg Albuterol Sulfate (Albuterol 0.5% Inhal Valery (2.5 Mg/0.5 Ml) Ud) 2.5 mg IH [id number] PRN PRN Reason: SOB Last Admin: 06/07/17 18:16 Dose: 2.5 mg Aspirin (Ecotrin) 81 mg PO DAILY [facility] Last Admin: 06/07/17 09:16 Dose: 81 mg Cholestyramine Resin (Questran) 4 gm PO DAILY [facility] Last Admin: 06/07/17 09:16 Dose: 4 gm Clopidogrel Bisulfate (Plavix) 75 mg PO DAILY [facility] Last Admin: 06/07/17 09:14 Dose: 75 mg Ferrous Sulfate (Feosol) 324 mg PO TID [facility] Last Admin: 06/07/17 14:40 Dose: 324 mg Guaifenesin/Dextromethorphan (Robitussin Dm) 5 ml PO Q4H PRN PRN Reason: Cough Last Admin: 06/06/17 16:00 Dose: 5 ml Lisinopril (Zestril) 2.5 mg PO DAILY [facility] Last Admin: 06/07/17 09:14 Dose: 2.5 mg Lorazepam (Ativan) 1 mg IVP HS LUANA PRN Reason: Protocol Last Admin: 06/07/17 21:46 Dose: 1 mg Metoprolol Succinate (Toprol Xl) 25 mg PO DAILY [facility] Last Admin: 06/07/17 09:14 Dose: 25 mg Pantoprazole Sodium (Protonix Ec Tab) 40 mg PO 0600 [facility] Last Admin: 06/07/17 05:42 Dose: Not Given Quetiapine Fumarate (Seroquel) 12.5 mg PO HS PRN; Protocol PRN Reason: restless/agitation/psychosis Last Admin: 06/07/17 21:45 Dose: 12.5 mg - Labs Labs: 06/07/17 20:46 06/07/17 20:46 Lab Studies 06/07/17 06/07/17 06/07/17 Range/Units 20:46 20:46 12:15 WBC 6.3 D 5.1 (4.5-11.0) 10^3/ul RBC 3.99 3.76 (3.5-6.1) 10^6/uL Hgb 8.9 L 8.4 L (12.0-16.0) g/dL Hct 27.2 L 25.7 L (36.0-48.0) % MCV 68.2 L 68.4 L (80.0-105.0) fl MCH 22.3 L 22.3 L (25.0-35.0) pg MCHC 32.7 32.7 (31.0-37.0) g/dl RDW 19.6 H 19.6 H (11.5-14.5) % Plt Count 267 267 (120.0-450.0) 10^3/uL MPV 9.2 9.4 (7.0-11.0) fl Gran % 57.8 (50.0-68.0) % Lymph % (Auto) 32.1 (22.0-35.0) % [place] % (Auto) 7.5 H (1.0-6.0) % Eos % (Auto) 2.4 (1.5-5.0) % Baso % (Auto) 0.2 (0.0-3.0) % Gran # 3.65 (1.4-6.5) Lymph # (Auto) 2.0 (1.2-3.4) [place] # (Auto) 0.5 (0.1-0.6) Eos # (Auto) 0.2 (0.0-0.7) Baso # (Auto) 0.01 (0.0-2.0) K/mm3 Sodium 142 (132-148) mmol/L Potassium 4.2 (3.6-5.0) mmol/L Chloride 116 H (98-107) mmol/L Carbon Dioxide 16 L (21-33) mmol/L Anion Gap 14 (10-20) BUN 18 (7-21) mg/dL Creatinine 1.2 (0.7-1.2) mg/dl Est GFR ( Amer) 53 Est GFR (Non-Af Amer) 44 Random Glucose 99 (70-110) mg/dL Calcium 10.0 (8.4-10.5) mg/dL Total Bilirubin 0.2 (0.2-1.3) mg/dL AST 23 (14-36) U/L ALT 39 (7-56) U/L Alkaline Phosphatase 57 (38-126) U/L Total Protein 6.4 (5.8-8.3) g/dL Albumin 3.5 (3.0-4.8) g/dL Globulin 3.0 gm/dL Albumin/Globulin Ratio 1.2 (1.1-1.8) 06/07/17 Range/Units 12:00 WBC (4.5-11.0) 10^3/ul RBC (3.5-6.1) 10^6/uL Hgb (12.0-16.0) g/dL Hct (36.0-48.0) % MCV (80.0-105.0) fl MCH (25.0-35.0) pg MCHC (31.0-37.0) g/dl RDW (11.5-14.5) % Plt Count (120.0-450.0) 10^3/uL MPV (7.0-11.0) fl Gran % (50.0-68.0) % Lymph % (Auto) (22.0-35.0) % [place] % (Auto) (1.0-6.0) % Eos % (Auto) (1.5-5.0) % Baso % (Auto) (0.0-3.0) % Gran # (1.4-6.5) Lymph # (Auto) (1.2-3.4) [place] # (Auto) (0.1-0.6) Eos # (Auto) (0.0-0.7) Baso # (Auto) (0.0-2.0) K/mm3 Sodium 143 (132-148) mmol/L Potassium 4.2 (3.6-5.0) mmol/L Chloride 118 H (98-107) mmol/L Carbon Dioxide 17 L (21-33) mmol/L Anion Gap 12 (10-20) BUN 17 (7-21) mg/dL Creatinine 1.0 (0.7-1.2) mg/dl Est GFR ( Amer) > 60 Est GFR (Non-Af Amer) 54 Random Glucose 107 (70-110) mg/dL Calcium 9.6 (8.4-10.5) mg/dL Total Bilirubin 0.2 (0.2-1.3) mg/dL AST 32 (14-36) U/L ALT 38 (7-56) U/L Alkaline Phosphatase 53 (38-126) U/L Total Protein 5.8 (5.8-8.3) g/dL Albumin 3.1 (3.0-4.8) g/dL Globulin 2.7 gm/dL Albumin/Globulin Ratio 1.2 (1.1-1.8) - Constitutional Appears: Well, No Acute Distress - Head Exam Head Exam: ATRAUMATIC, NORMAL INSPECTION, NORMOCEPHALIC - Eye Exam Eye Exam: Normal appearance - ENT Exam ENT Exam: Normal External Ear Exam - Neck Exam Neck Exam: Normal Inspection - Respiratory Exam Respiratory Exam: NORMAL BREATHING PATTERN - Cardiovascular Exam Cardiovascular Exam: absent: JVD - GI/Abdominal Exam GI & Abdominal Exam: absent: Distended - Rectal Exam Rectal Exam: Deferred - Exam Additional comments: Deferred. - Extremities Exam Extremities Exam: Normal Inspection - Back Exam Back Exam: NORMAL INSPECTION - Neurological Exam Neurological Exam: Altered - Psychiatric Exam Psychiatric exam: Agitated - Skin Skin Exam: Normal Color Assessment and Plan - Assessment and Plan (Free Text) Assessment: Sundowning. Delirium. Agitaiton. HTN. Elevated blood pressure reading. CAD. Dementia. Anemia. Plan: Ativan 0.5 mg IV, later on 1 mg IV was given.
--- NOTE | 2017-06-08 00:39 | CON ---
DATE: HISTORY OF PRESENT ILLNESS: The patient is a 77-year-old female with not known previous psychiatric history. The patient was brought in for evaluation of change in mental status. The patient was found to have urinary tract infection, was admitted on the medical side. Psych consult was called for evaluation of change in mental status, periods of confusion, and aggressive behavior. Based on the report from the nursing staff as well as medical team, the patient had episodes of confusion, agitation, swinging, and also screaming and yelling, wants to leave the hospital against medical advice. The patient was seen and examined today with the presence of her daughter Lis as well as Zafar. The patient presented to be pleasant and cooperative. The patient knows that she is in the hospital, but does not remember the circumstances of her admission to the hospital. The patient reported that she feels fine. She denied being depressed. Denied thoughts of harming herself or others. As per family, the patient has episodes of confusion, which is less frequent at present moment. The patient denied previous history of mental illness, denied history of depression, denied history of suicidal attempts. The patient was absolutely fine before coming to the hospital. For the past couple of days, the patient has episodes of being confused and being paranoid and feeling that people are lying to her. PHYSICAL EXAMINATION: VITAL SIGNS: Stable. Temperature is 97.6, pulse is 90, blood pressure 159/75, respirations 20, oxygen saturation is 99. MEDICATIONS: Reviewed. The patient is on Tylenol, aspirin, cholestyramine, Plavix, Feosol, Robitussin, lisinopril, Ativan, metoprolol, Protonix. LABORATORY DATA: Reviewed. Hematology showed hemoglobin and hematocrit of 8.4 and 25.7. Chemistry reviewed. Urinalysis showed protein trace and leukocyte esterase small. MENTAL STATUS EXAMINATION: The patient presented to be alert. The patient is oriented in self and place. The patient was able to recognize her family. Intermittent eye contact. Mood described "I am fine." Affect was more reactive, mood congruent. Thought process seems to be improving, but still the patient has episodes of confusion and disorganized thoughts. Thought content; yesterday the patient was paranoid and thought that her family was lying to her, was agitated, wanted to leave the hospital. Insight and judgment seems to be moving, impulses are better controlled. IMPRESSION: Most likely the patient has delirium due to medical issues. Hepatic encephalopathy cannot be excluded at the present moment, but the patient is improving already. PLAN: Continue current management. Continue current medications. This quality analyst/technical writer would suggest Seroquel 12.5 mg at the nighttime only as needed if the patient is confused, agitated, and restless. Risks, benefits and alternatives of the medications discussed with the patient as well as family. We will keep eye on the patient and advise accordingly. Should you have any questions, give me a call back. Thank you very much for letting me to participate in care of your patient. Zara Tanner MD MTDD
[2017-06-08] MEDS: Metoprolol Succinate 25 mg XL Tab PO SCH ×2 (06:47→11:20)
[2017-06-08] MEDS: Pantoprazole 40 mg EC Tab PO SCH (06:48)
--- NOTE | 2017-06-08 09:37 | PN ---
SUBJECTIVE: The patient was seen and examined at bedside on the remote telemetry newberry. Overnight she was noted to be extremely combative and confused necessitating multiple administrations of Ativan. The patient also had no sleep overnight and this morning appears exhausted and remains delirious. She is redirectable and when asked, offers no complaints. OBJECTIVE VITAL SIGNS: Temperature 98.6, pulse 94, blood pressure 154/76, respiratory rate 18, oxygen saturation 98% on room air. GENERAL: Somnolent woman, lying in bed, in no apparent distress. HEENT: PERRL. EOMI. No scleral icterus. Mild conjunctival pallor is noted. NECK: Supple with full range of motion. No JVD. No bruits. LUNGS: Clear to auscultation. CARDIOVASCULAR: Regular rate and rhythm. Normal S1 and S2. ABDOMEN: Normoactive bowel sounds. Soft, nontender and nondistended. EXTREMITIES: No edema. NEUROLOGIC: Awake and alert, oriented only to person. Moving all extremities. LABORATORY DATA: Morning labs are pending. ASSESSMENT: The patient is a 77 year old woman with a past medical history of CAD, HTN, COPD anxiety disoder and iron deficiency anemia who presented for evaluation of a several day history of lethargy, malaise and generalized weakness and who was admitted for management of symptomatic anemia and dehydration and whose hospital course was complicated by altered mental status. PLAN 1. AMS, etiology likely secondary to toxic metabolic encephalopathy in the setting of uremia and dehydration. IV fluids have been discontinued given resolution of the patient's renal dysfunction. She remains delirious. Input from Dr. Zuñiga of Psychiatry greatly appreciated. We will increase Seroquel to Seroquel 25 mg p.o. at bedtime p.r.n. 2. JORDYN, resolved. Continue to encourage p.o. intake. The patient remains off IV fluids. 3. Symptomatic anemia s/p transfusion of 1 unit PRBCs, resolved. Lab demonstrates stable H/H at the patient's baseline. Stool occult blood is negative. Continue to monitor CBC daily. Continue Feosol 324 mg p.o. t.i.d. 4. CAD s/p PCI with stent placement. Continue Aspirin 81 mg p.o. daily, Plavix 75 mg p.o. daily, Lisinopril 2.5 mg p.o. daily and Toprol-XL 25 mg p.o. daily. 5. COPD. Continue supplemental oxygen and bronchodilators as needed. 6. Anxiety disorder. 7. Deconditioning. A PT evaluation has been ordered and pending. 8. Prophylaxis. Continue Protonix for GI prophylaxis and SCDs for DVT prophylaxis. CODE STATUS: Full code. Lino Jane MD MTDD
[2017-06-08] MEDS: Potassium & Sodium Phosphate PO SCH ×4 (11:16→17:50)
[2017-06-08] MEDS: Cholestyramine 4 gm/Pkt UD PO SCH ×2 (11:19→14:48)
[2017-06-08] MEDS ORDERED: Metoprolol Succinate 50 mg XL Tab PO SCH (13:00)
--- NOTE | 2017-06-08 15:54 | PN ---
DATE: REASON FOR CONSULTATION: For cardiac evaluation, history of coronary artery disease, admitted with dehydration, severe anemia, altered mental status, status post packed RBC transfusion. SUBJECTIVE: The patient denies any chest pain, shortness of breath, any palpitation. OBJECTIVE: GENERAL: Not in any apparent distress. VITAL SIGNS: Temperature afebrile, heart rate 95, blood pressure 177/99. HEENT: PERRLA. Extraocular muscles intact. NECK: Supple. No carotid bruit. No thyromegaly. CHEST: Clear to auscultation. HEART: S1 and S2 regular. ABDOMEN: Soft. EXTREMITIES: Clubbing and cyanosis negative. LABORATORY DATA: Blood workup as follows: WBC 6.8, hemoglobin 8.9, hematocrit 27.2, platelet count 267,000. Chemistry shows sodium 140, potassium 4.2, chloride , carbon dioxide 16, anion gap of 16, BUN 14, creatinine 1.2. Phosphorus 2.2. IMPRESSION: Altered mental status; metabolic encephalopathy; anemia; renal insufficiency, improved with hydration; status post packed red blood cells transfusion; guaiac stool negative; history of coronary artery disease, status post percutaneous transluminal coronary angioplasty. No evidence of acute myocardial infarction, peripheral arterial disease, chronic obstructive pulmonary disease. RECOMMENDATION: Supplement phosphorus. Continue aspirin. Continue Plavix. Rehab. Psychiatric evaluation. We will follow with you. Stool occult blood negative. No active bleeding. Continue beta-mita. Continue lisinopril. Continue ferrous sulfate supplement. Continue aspirin and Plavix. Monitor CBC in the morning and magnesium, phosphorus as well. Thank you Dr. Jane for providing us the opportunity in taking care of the patient, [place]. Samuel Banda MD
[2017-06-08] MEDS: Albuterol 0.5% Inhal Sol (2.5 mg/0.5 ml) UD IH PRN (17:30)
[2017-06-08 21:52] LABS: ALB/GLOB RATIO 1.2 (1.1-1.8); ALBUMIN 3.3 g/dL (3.0-4.8); CALCIUM 9.4 mg/dL (8.4-10.5)
--- NOTE | 2017-06-08 23:10 | PN ---
DATE: SUBJECTIVE: The patient is 77-year-old with no previous psychiatric history. The patient was independent up until a few days prior to this evaluation. The patient was admitted on the medical side on 06/04/2017, status post altered mental status. The patient was very confused. The patient thought that she is in restaurant majority of the time. During the nighttime, the patient is agitated and aggressive, and patient has episodes of confusion when patient is disoriented. This typewriter mechanic evaluated the patient yesterday. The patient was lucid. The patient was able to participate in interview, but later on overnight, the patient was belligerent and patient was using profanities and screaming, yelling. The patient was given Ativan as well as Seroquel, and at the morning time, the patient was deeply sedated when this typewriter mechanic was rounding. Discussed case with the patient's family, today it was the patient's . As per the patient's , yesterday the patient had a good day and majority of the time the patient was lucid, but overnight she was agitated. This typewriter mechanic educated the patient's about rationale behind of Seroquel. The patient's family was appreciative asking reasonable questions, intelligent questions, treatment plan was discussed in detail. This typewriter mechanic reviewed the vital signs. Vital signs seem to be stable. Temperature 98.6, pulse is 84, blood pressure 178/87, respiration 18, oxygen saturation is 97. Medications reviewed. Tylenol, aspirin, cholestyramine, Plavix, Feosol, Robitussin, Zestril, propofol, Protonix, Neutra-Phos, Seroquel will be increased to 25 mg at nighttime as needed for restlessness and agitation, Ambien 5 mg as needed for insomnia. This typewriter mechanic will suggest Seroquel needs to be scheduled and Ambien as needed. Treatment plan was discussed with the patient's . MENTAL STATUS EXAMINATION: This typewriter mechanic would not be able to evaluate the patient's mental status because the patient was deeply sedated and sleeping. IMPRESSION: I agree with Dr. Jane's impression that most likely the patient has metabolic encephalopathy and hyperactive delirium, which is related to low hemoglobin level as well as uremia and dehydration. PLAN: Considering the fact that patient was doing very well yesterday, this typewriter mechanic has hope that the patient will be improving faster. This typewriter mechanic will give Seroquel 25 mg at the nighttime scheduled, but if patient would have difficulty to fall asleep, only in that case Ambien will be given to her. Overall, the patient was improving yesterday, but patient is status post medication today at the morning time, very hard to evaluate the patient. We will see the patient tomorrow for followup. Our treatment plan was discussed in detail with the family. We will follow up and advise accordingly. Thank you very much for letting me participate in care of your patient. Zara Tanner MD
[2017-06-09] MEDS: Albuterol 0.5% Inhal Sol (2.5 mg/0.5 ml) UD IH PRN (00:15)
[2017-06-09] MEDS: Pantoprazole 40 mg EC Tab PO SCH (05:43)
[2017-06-09] MEDS: guaiFENesin DM 100 mg-10 mg/5 ml UD PO PRN (05:46)
[2017-06-09 06:42] LABS: EOS # 0.2 (0.0-0.7); EOS % 2.7 % (1.5-5.0); GRAN # 3.41 (1.4-6.5); GRAN % 57.6 % (50.0-68.0); HEMOGLOBIN 8.8 g/dL (12.0-16.0); LYMPH # 1.8 (1.2-3.4); LYMPH % 30.2 % (22.0-35.0); MEAN CELL VOLUME 67.9 fl (80.0-105.0); MEAN CORPUSCULAR HEMOGLOBIN 22.1 pg (25.0-35.0); MEAN CORPUSCULAR HGB CONC 32.5 g/dl (31.0-37.0); MEAN PLATELET VOLUME 9.8 fl (7.0-11.0); MONO # 0.6 (0.1-0.6); MONO % 9.5 % (1.0-6.0); RBC 3.99 10^6/uL (3.5-6.1); RED CELL DISTRIBUTION WIDTH 19.5 % (11.5-14.5); WHITE BLOOD COUNT 5.9 10^3/ul (4.5-11.0)
[2017-06-09 07:00] LABS: ALB/GLOB RATIO 1.2 (1.1-1.8); ALBUMIN 3.4 g/dL (3.0-4.8); ALT/SGPT 43 U/L (7-56); AST/SGOT 39 U/L (14-36); BLOOD UREA NITROGEN 15 mg/dL (7-21); CALCIUM 9.7 mg/dL (8.4-10.5); GFR AFRICAN-AMERICAN > 60; GFR NON-AFRICAN AMERICAN 54
[2017-06-09 08:31] VITALS: RESP 19; TEMP 98.1; O2SAT 95
--- NOTE | 2017-06-09 09:33 | PN ---
SUBJECTIVE: The patient was seen and examined at bedside on the remote telemetry [facility]. Overnight she was noted to again be delirious, albeit significantly improved from prior nights. Per my discussion with the night nurse, she was also not as combative. This morning, she is sleeping heavily, but arousable and offers no complaints. She is pending TCU evaluation. PHYSICAL EXAMINATION VITAL SIGNS: Temperature 98, pulse 78, blood pressure 176/82, respiratory rate 18, oxygen saturation 99% on room air. GENERAL: No apparent distress. HEENT: PERRL. EOMI. No scleral icterus. Mild conjunctival pallor is noted. NECK: Supple with full range of motion. No JVD. No bruits. LUNGS: Clear to auscultation. CARDIOVASCULAR: Regular rate and rhythm. Normal S1 and S2. ABDOMEN: Normoactive bowel sounds. Soft, nontender, nondistended. EXTREMITIES: No edema. NEUROLOGIC: Somnolent, but arousable, oriented to person. Moving all extremities. LABORATORY DATA: WBC 5.9, hemoglobin 8.8, hematocrit 27, platelets 267, MCV 68. Chemistry reviewed and unremarkable. ASSESSMENT: The patient is a 77 year old woman with a past medical history of CAD, HTN, COPD , anxiety disorder and iron deficiency anemia who presented for evaluation of a several day history of lethargy, malaise and generalized weakness and who was admitted for management of symptomatic anemia and dehydration and whose hospital course was complicated by altered mental status. PLAN: 1. 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 She is demonstrating gradual return to baseline. Input from Dr. Zuñiga of Psychiatry greatly appreciated. Continue Seroquel 25 mg p.o. at bedtime as needed. 2. JORDYN, resolved. The patient remains off IV fluids and is encouraged to continue p.o. intake. 3. Fe-deficiency anemia s/p transfusion of 1 unit PRBC. Hb at baseline (8-9). Stool occult blood is negative. Continue Feosol 324 mg p.o. t.i.d. 4. CAD s/p PCI with stent placement. Continue Aspirin 81 mg p.o. daily, Plavix 75 mg p.o. daily, Lisinopril 2.5 mg p.o. daily and Toprol XL 50 mg p.o. daily. 5. COPD. Continue supplement oxygen and bronchodilators as needed. 6. Anxiety disorder. 7. Deconditioning. Patient scheduled for TCU transfer. 8. Prophylaxis. Continue Protonix for GI prophylaxis and SCDs for DVT prophylaxis. CODE STATUS: Full code. Lino Jane MD [facility]
[2017-06-09] MEDS: Cholestyramine 4 gm/Pkt UD PO SCH (10:44)
[2017-06-09] MEDS: Potassium & Sodium Phosphate PO SCH ×2 (10:44→13:55)
[2017-06-09 10:49] VITALS: BP 156/80; PULSE 70
[2017-06-09] MEDS ORDERED: Potassium Chloride 20 mEq/15 ml LIQ UD PO STA (12:41)
--- NOTE | 2017-06-09 15:23 | CARD ---
APPROVED REPORT EXAM: Two-dimensional and M-mode echocardiogram with Doppler and color Doppler. INDICATION Dyspnea 2D DIMENSIONS Left Atrium (2D)3.5 (1.6-4.0cm)IVSd1.0 (0.7-1.1cm) LVDd4.7 (3.9-5.9cm)PWd1.1 (0.7-1.1cm) LVDs3.3 (2.5-4.0cm)FS (%) 28.8 % LVEF (%)55.3 (>50%) M-Mode DIMENSIONS Aortic Root2.60 (2.2-3.7cm)Aortic Cusp Exc.1.40 (1.5-2.0cm) Aortic Valve AoV Peak Tqcmswbs973.0cm/Molly Peak GR.13mmHg Mitral Valve MV E Dwxocsdk527.0cm/sMV A Alvguaxp151.0cm/sE/A ratio0.8 TDI E/Lateral E'0.0E/Medial E'0.0 Tricuspid Valve TR Peak Fcpiufkz464rr/sRAP [id number] Peak Gr.21mmHg [id number] LEFT VENTRICLE The left ventricle is normal size. There is normal left ventricular wall thickness. The left ventricular function is normal. The left ventricular ejection fraction is within the normal range. LV Ej.Fr:55% There is normal LV segmental wall motion. LV Ej.Fr:55%. Transmitral Doppler flow pattern is Grade I-abnormal relaxation pattern. RIGHT VENTRICLE The right ventricle is normal size. The right ventricular systolic function is normal. ATRIA The left atrium size is normal. The right atrium size is normal. AORTIC VALVE The aortic valve is normal in structure. MITRAL VALVE The mitral valve is normal in structure. Mitral regurgitation is mild. TRICUSPID VALVE The tricuspid valve is normal in structure. There is trace tricuspid regurgitation. RVSP 31mm Hg. PERICARDIAL EFFUSION There is no pleural effusion. There is no pericardial effusion. <Conclusion> The left ventricle is normal size. There is normal left ventricular wall thickness. There is normal LV segmental wall motion. The right ventricle is normal size. The right ventricular systolic function is normal. The right ventricle is normal size. Transmitral Doppler flow pattern is Grade I-abnormal relaxation pattern. There is normal LV segmental wall motion. The right atrium size is normal. The left atrium size is normal. The aortic valve is normal in structure. The mitral valve is normal in structure. Mitral regurgitation is mild. The tricuspid valve is normal in structure. There is trace tricuspid regurgitation. RVSP 31mm Hg. There is no pericardial effusion. There is no pleural effusion. The left ventricular function is normal. The left ventricular ejection fraction is within the normal range. LV Ej.Fr:55%
--- NOTE | 2017-06-09 18:31 | PN ---
DATE: 06/09/2017 REASON FOR CONSULTATION AND FOLLOWUP: Cardiac evaluation, history of coronary artery disease, admitted with dehydration, severe anemia, altered mental status, status post packed RBC transfusion. SUBJECTIVE: The patient denies any chest pain, shortness of breath, any palpitation. OBJECTIVE: GENERAL: The patient is not in any apparent distress. VITAL SIGNS: Temperature afebrile, heart rate 70, blood pressure 156/80. HEENT: PERRLA. Extraocular muscles intact. NECK: Supple. No carotid bruit or thyromegaly. CHEST: Clear to auscultation. HEART: S1 and S2 regular. ABDOMEN: Soft. EXTREMITIES: Clubbing and cyanosis negative. LABORATORY DATA: Blood workup as follows: WBC 5.9, hemoglobin 8.8, hematocrit 27.1, platelet count 267. Chemistry shows sodium 142, potassium 3.6, chloride 114, carbon dioxide 18, anion gap of 13, BUN 15, creatinine 1.0. IMPRESSION: Altered mental status, metabolic encephalopathy, anemia, acute kidney injury resolved, history of coronary artery disease, history of peripheral arterial disease, history of guaiac negative for gastrointestinal bleed. No evidence of active gastrointestinal bleeding. No evidence of myocardial infarction, peripheral arterial disease as above, history of chronic obstructive pulmonary disease. RECOMMENDATION: Supplement electrolytes and monitor H&H. Repeat blood workup in the morning. We will follow. Continue rehab. We will get KCL 40 mEq. We will follow with you. Samuel Banda MD
--- NOTE | 2017-06-10 02:10 | PN ---
DATE: FOLLOWUP NOTE SUBJECTIVE: The patient was admitted on the medical side, status post altered mental status, likely it was related to dehydration and urinary tract infection and hepatic encephalopathy. Patient was started on Seroquel. Patient got 25 mg at the nighttime yesterday plus Ambien 5 mg at the nighttime. Patient tolerated that well. Patient was seen and examined today at the morning time. Patient does not have any agitation or aggression. As per the patient's , patient presented very well, closer to her baseline. Patient and family was appreciated. Patient appears to be in good mood and in good spirit. Vital signs are stable, but blood pressure is mildly elevated at 156/80. There is no agitation or aggression as this freelance writer mentioned above. Labs reviewed. MENTAL STATUS EXAMINATION: Patient appears to be alert, pleasant, cooperative. Good eye contact. Speech was normal rate, tone, quality and quantity. Mood described "I feel better." Affect was reactive, mood congruent. Thought process was more coherent and goal directed. Thought content: Patient denied visual, auditory or tactile hallucinations. Denied paranoid ideation. Patient's thought process is more organized. Insight and judgment seems to be improving. Impulses are well controlled. IMPRESSION: Delirium is clearing. PLAN: Continue current management. Continue current medications. Seroquel should be continued at 25 mg at the nighttime, scheduled for another at night and Ambien as needed for insomnia. Treatment plan was discussed with the patient and the patient's family. Patient's was appreciated. Plan is to give Seroquel 25 mg as needed starting on ; if the patient tolerates it well, we will that medication safely. Meanwhile, continue current management. Patient deemed to be ready to be transferred to Transitional Care Unit for further treatment. This freelance writer will follow up and advise accordingly. Thank you very much for letting me participate in care of your patient. Zara Tanner MD
--- NOTE | 2017-06-10 14:39 | DS ---
ADMITTING DIAGNOSES: Dehydration, symptomatic anemia and JORDYN. DISCHARGE DIAGNOSES: Dehydration (resolved), JORDYN (resolved) and AMS secondary to sundowning syndrome (improving). SECONDARY DIAGNOSES: Iron-deficiency anemia, CAD s/p PCI with stent placement, COPD, anxiety disorder and hypertension. CONSULTATIONS: Dr. Tanner (Psychiatry) and Dr. Banda (Cardiology), IMAGING STUDIES: Chest x-ray demonstrated no active disease. DIAGNOSTIC STUDIES: TTE demonstrated normal LV size and function with an EF of 55%. PROCEDURES: None. HISTORY OF PRESENT ILLNESS: The patient is a 77 year old woman with a past medical history of COPD, CAD s/p PCI with stent placement and hypertension who was brought to [facility] ED by her for evaluation of a several day history of generalized weakness, malaise and lethargy. The patient was evaluated at her PMD's office approximately 4 days prior to presentation for the aforementioned symptoms. She was sent for a CT of the head which was unremarkable and bilateral carotid artery ultrasonography which demonstrated 70% stenoses on the right side. Outpatient labs were also performed which demonstrated dehydration and low vitamin D levels. The patient's was advised to keep the patient well hydrated and encourage p.o. intake. She was also started on vitamin D supplementation and advised that if she does not improve over the following 48 hours to present to the nearest ED. The did as advised but the patient was noted to remain lethargic and intermittently confused and as such was brought to the ED. Upon arrival to the ED she was noted to be afebrile and hemodynamically stable and laboratory studies disclosed marked uremia and acute kidney injury consistent with dehydration. She was transfused 1 unit of PRBCs and subsequently admitted to the remote telemetry new[facility] for continued management of JORDYN, symptomatic anemia, dehydration and altered mental status. HOSPITAL COURSE: Upon admission to the remote telemetry new[facility], the patient was maintained on normal saline at 100 mL per hour. Over the following 36 hours she was noted to have resolution of her acute kidney injury and IV fluids were discontinued. Her hospital course was complicated by rather significant confusion at night consistent with sundowning syndrome. The patient had moments of severe delirium and aggressive behavior. She was evaluated by Dr. Tanner of Psychiatry and placed on Seroquel as needed and was noted to have gradual improvement in her symptoms after initiating this therapy. Given her age and prolonged bedrest she was noted to be rather deconditioned and after examination by PT, TCU was recommended. The patient and her family were agreeable with TCU and as such arrangements were made for transfer to TCU by hospital day #5. CONDITION: Fair, improved. DISPOSITION: TCU. DISCHARGE MEDICATIONS: Aspirin 81 mg p.o. daily, Plavix 75 mg p.o. daily, Feosol 324 mg p.o. t.i.d., Lisinopril 2.5 mg p.o. daily, Toprol XL 25 mg p.o. daily, Protonix 40 mg p.o. daily, Seroquel 25 mg p.o. at bedtime and Ambien 5 mg p.o. at bedtime as needed. FOLLOWUP: The patient will be followed by her PMD and the consultants while on the TCU. Lino Jane MD [facility]
== END 2017-06-09 16:26 | DRG 811 ==
LOC: ED 12:33 → ERH 15:45 → 3RNO 20:23
PROVIDERS: ADMIT Student in an Organized Health Care Education/Training Program; ATTEND Student in an Organized Health Care Education/Training Program
PROC: 30233N1 Transfusion of Nonautologous Red Blood Cells into Peripheral Vein, Percutaneous Approach (ICD-10-PCS; principal; 2017-06-04)
DX: D50.9 Iron deficiency anemia, unspecified (principal); G93.41 Metabolic encephalopathy; N17.9 Acute kidney failure, unspecified; F05 Delirium due to known physiological condition; N39.0 Urinary tract infection, site not specified; E86.0 Dehydration; J44.9 Chronic obstructive pulmonary disease, unspecified; F03.90 Unspecified dementia, unspecified severity, without behavioral disturbance, psychotic disturbance, mood disturbance, and anxiety; I10 Essential (primary) hypertension; I25.10 Atherosclerotic heart disease of native coronary artery without angina pectoris; I73.9 Peripheral vascular disease, unspecified; K72.90 Hepatic failure, unspecified without coma; Z79.02 Long term (current) use of antithrombotics/antiplatelets; Z79.82 Long term (current) use of aspirin; Z79.899 Other long term (current) drug therapy; Z86.73 Personal history of transient ischemic attack (TIA), and cerebral infarction without residual deficits; Z90.49 Acquired absence of other specified parts of digestive tract; Z90.710 Acquired absence of both cervix and uterus; Z95.5 Presence of coronary angioplasty implant and graft; Z88.3 Allergy status to other anti-infective agents; Z88.2 Allergy status to sulfonamides; Z87.892 Personal history of anaphylaxis; R40.2412 Glasgow coma scale score 13-15, at arrival to emergency department; I45.10 Unspecified right bundle-branch block; R26.81 Unsteadiness on feet; F41.9 Anxiety disorder, unspecified

== ENCOUNTER 2017-06-09 16:26 | Inpatient (IN) | payer OTHER, MEDICARE ==
[2017-06-09 16:56] VITALS: BMI 25.3
[2017-06-09] MEDS ORDERED: Albuterol 0.083% Inhal Sol (2.5 mg/3 mL) UD ONE (17:24)
[2017-06-09] MEDS: Albuterol 0.5% Inhal Sol (2.5 mg/0.5 ml) UD IH PRN (17:36)
[2017-06-09] MEDS: Potassium & Sodium Phosphate PO SCH (18:36)
[2017-06-09] MEDS: guaiFENesin DM 100 mg-10 mg/5 ml UD PO PRN (21:18)
[2017-06-10] MEDS: Pantoprazole 40 mg EC Tab PO SCH (05:52)
[2017-06-10 06:59] LABS: BASO # 0.01 K/mm3 (0.0-2.0); BASO % 0.2 % (0.0-3.0); EOS # 0.2 (0.0-0.7); EOS % 3.3 % (1.5-5.0); GRAN # 2.84 (1.4-6.5); GRAN % 54.8 % (50.0-68.0); HEMOGLOBIN 8.3 g/dL (12.0-16.0); LYMPH # 1.7 (1.2-3.4); LYMPH % 32.2 % (22.0-35.0); MEAN CELL VOLUME 68.2 fl (80.0-105.0); MEAN CORPUSCULAR HGB CONC 32.3 g/dl (31.0-37.0); MONO # 0.5 (0.1-0.6); MONO % 9.5 % (1.0-6.0); RBC 3.77 10^6/uL (3.5-6.1); RED CELL DISTRIBUTION WIDTH 19.6 % (11.5-14.5); WHITE BLOOD COUNT 5.2 10^3/ul (4.5-11.0)
[2017-06-10 07:22] LABS: BLOOD UREA NITROGEN 16 mg/dL (7-21); CALCIUM 9.4 mg/dL (8.4-10.5); GFR AFRICAN-AMERICAN > 60; GFR NON-AFRICAN AMERICAN 54
[2017-06-10] MEDS: Metoprolol Succinate 25 mg XL Tab PO SCH (08:48)
[2017-06-10] MEDS: Potassium & Sodium Phosphate PO SCH ×3 (13:17→17:52)
[2017-06-10] MEDS: Cholestyramine 4 gm/Pkt UD PO SCH (13:19)
[2017-06-10] MEDS: Albuterol 0.5% Inhal Sol (2.5 mg/0.5 ml) UD IH PRN (16:46)
[2017-06-10] MEDS: guaiFENesin DM 100 mg-10 mg/5 ml UD PO PRN (17:53)
--- NOTE | 2017-06-10 19:43 | PN ---
DATE: SUBJECTIVE: The patient was in delirium stage due to multiple reasons; dehydration, possible urinary tract infection, and hepatic encephalopathy. The patient is improving. The patient was transferred to TCU unit. This video game script writer was following the patient up for medication management. The patient was seen and examined today. The patient presented to be alert, oriented, pleasant, and cooperative. The patient reported that she feels much better. She does not have any episodes of confusion or agitation. Collaterals from the patient's . The patient's confirmed this information. At present moment, this video game script writer will change Seroquel scheduled dose 25 mg to p.r.n. and the patient requires p.r.n. if not, we will safely discontinue that medication. Vital signs are stable. Temperature 99.3, pulse 76, blood pressure 111/59, respirations 16, oxygen saturation is 98. Medications reviewed. Seroquel as this video game script writer mentioned before. This will be as needed. Ambien as needed for insomnia. Labs reviewed, the new labs from today, no acute changes. MENTAL STATUS EXAMINATION: As this video game script writer described above. The patient was alert, oriented, pleasant, and cooperative. Good eye contact. Speech was normal rate, tone, quality, and quantity. Mood described, "I'm fine, I'm doing better." Thought process coherent and goal directed. Thought content, the patient denied visual, auditory, or tactile hallucinations. Denied paranoid ideation. The patient denied thoughts of harming herself or others. Denied intent or plan. Insight and judgment seem to be improving. Impulses are well controlled. IMPRESSION: Delirium, multifactorial, is improving. PLAN: Continue current management. Continue current medications. Seroquel will be as needed at the nighttime. Will follow up on this patient tomorrow and advise accordingly. Thank you very much for letting me participate in care of your patient. Should you have any questions, give me a call back. Zara Tanner MD
--- NOTE | 2017-06-10 19:46 | HP ---
HISTORY OF PRESENT ILLNESS: The patient is a 77 year old woman with a past medical history of CAD s/p PCI with stent placement, HTN, COPD and iron deficiency anemia who presented to [facility] for evaluation of a several day history of lethargy, malaise and generalized weakness. She was initially admitted to the remote telemetry new[facility] for management of symptomatic anemia, dehydration and acute kidney injury with resolution of her acute presenting symptoms over the following 36 hours. Her hospital course was complicated by significant delirium secondary to sundowning syndrome as well as deconditioning. She was evaluated by Dr. Zara Tanner of Psychiatry and started on Seroquel with moderate improvement in her altered mental status. Given her age and prolonged bedrest, she was found to be quite deconditioned and after evaluation by PT recommendations were made for transfer to TCU for continued gait training, strengthening exercises and physical therapy. By hospital day #5 she was deemed stable for transfer to TCU. PAST MEDICAL HISTORY: As per HPI, also anxiety disorder. PAST SURGICAL HISTORY: As per HPI. Also appendectomy, cholecystectomy and hysterectomy. ALLERGIES: SULFA. MEDICATIONS: Aspirin, 81 mg p.o. daily, Plavix 75 mg p.o. daily, Toprol-XL 25 mg p.o. daily, Lisinopril 2.5 mg p.o. daily, Protonix 40 mg p.o. daily, Cholestyramine 4 g p.o. daily, ProAir HFA 2 puffs every 4 to 6 hours p.r.n. dyspnea or wheeze and Dulera 200 mcg 2 puffs b.i.d. FAMILY HISTORY: Noncontributory. SOCIAL HISTORY: She denies any toxic habits. REVIEW OF SYSTEMS: A 14-point review of systems is negative except as per HPI. PHYSICAL EXAMINATION VITAL SIGNS: Temperature 98.5, pulse 81, blood pressure 138/66, respiratory rate 18, oxygen saturation 90% on room air. GENERAL: No apparent distress. HEENT: PERRL. EOMI. No scleral icterus. Mild conjunctival pallor is noted. NECK: Supple with full range of motion. No JVD. LUNGS: Clear to auscultation. CARDIOVASCULAR: Regular rate and rhythm. Normal S1 and S2. ABDOMEN: Normoactive bowel sounds. Soft, nontender, nondistended. EXTREMITIES: No edema. NEUROLOGIC: Awake, alert, and oriented x3. Moving all extremities. LABORATORY DATA: WBC 5.2, hemoglobin 8.3, hematocrit 26, platelets 229,000, MCV 68.2. Chemistry reviewed and unremarkable. ASSESSMENT: The patient is a 77 year old woman with a past medical history of CAD, COPD, HTN and iron deficiency anemia who presented for evaluation of a several day history of lethargy, malaise and generalized weakness and who was initially admitted to the remote telemetry [facility] for management of symptomatic anemia and dehydration whose hospital course was complicated by altered mental status and who was subsequently transferred to the TCU for continued physical therapy. PLAN 1. Altered mental status, etiology likely secondary to sundowning syndrome, resolving. The patient continues to demonstrate gradual return to her baseline. Input from Dr. Zuñiga of Psychiatry appreciated. Continue Seroquel 25 mg p.o. at bedtime. 2. JORDYN, resolved. The patient remains off IV fluids and is encouraged to continue p.o. intake. 3. Iron deficiency anemia s/p transfusion of 1 unit PRBC. Hb at baseline (8-9) . Stool occult blood is negative. Continue Feosol 324 mg p.o. t.i.d. 4. CAD s/p PCI with stent placement. Continue Aspirin 81 mg p.o. daily, Plavix 75 mg p.o. daily, Lisinopril 2.5 mg p.o. daily and Toprol XL 25 mg p.o. daily. 5. Hypertension, blood pressure controlled. Continue with current medications. 6. COPD. Continue with supplemental oxygen and bronchodilators as needed. 7. Anxiety disorder. 8. Deconditioning. Continue with PT. 9. Prophylaxis. Continue Protonix for GI prophylaxis and SCDs for DVT prophylaxis. CODE STATUS: Full code. Lino Jane MD [facility]
[2017-06-10] MEDS: Albuterol 0.083% Inhal Sol (2.5 mg/3 mL) UD IH PRN (21:31)
--- NOTE | 2017-06-11 01:08 | CON ---
DATE: SERVICE: Cardiology. REASON FOR CONSULTATION: Cardiac evaluation and followup, continuity of care in Transitional Care Unit, history of coronary artery disease, peripheral arterial disease. BRIEF CLINICAL HISTORY: This is a 77-year-old female with past medical history of coronary artery disease, COPD, status post multiple stents, history of PAD, who was initially admitted with low H&H, low hemoglobin, acute kidney injury to the acute floor, lethargic, altered mental status. Patient was treated with IV fluid, given one unit of blood. Patient stabilized now for continuity of care in Transitional Care Unit. Denies any chest pain, shortness of breath, or any palpitation. PAST MEDICAL HISTORY: Significant for coronary artery disease, status post multiple stents; history of peripheral arterial disease; history of multiple drug-coated balloon angioplasty of lower extremity vessels; diabetes; hypertension; hyperlipidemia; COPD. REVIEW OF SYSTEMS: As per HPI. PHYSICAL EXAMINATION: VITAL SIGNS: As follows: Temperature afebrile, heart rate 76, blood pressure 101/59. HEENT: PERRLA. Extraocular muscles intact. NECK: Supple. No carotid bruit or thyromegaly. CHEST: Clear to auscultation. HEART: S1 and S2 regular. ABDOMEN: Soft. EXTREMITIES: Clubbing and cyanosis negative. LABORATORY DATA: Blood workup as follows: WBC 5.2, hemoglobin 8.3, hematocrit 25.7, platelet count 229. Chemistry shows sodium 141, potassium 4, chloride 114, carbon dioxide 20, anion gap of 11, BUN 16, creatinine 1.0. IMPRESSION: Acute kidney injury, hypertension, hyperlipidemia, peripheral arterial disease, history of multiple coronary stents, chronic obstructive pulmonary disease, altered mental status secondary to metabolic encephalopathy, now symptoms are significantly improved. Stool guaiac was negative on admission. No evidence of active gastrointestinal bleeding. No evidence of myocardial infarction. Peripheral arterial disease, coronary artery disease, relatively stable. RECOMMENDATIONS: Continue supplement, monitor H&H, continue rehab, continue iron supplement, continue baby aspirin, continue Neutra-Phos, continue Plavix, continue , continue beta mita. We will repeat the labs in a day or two. Thank you, Dr. Lino Jane, for providing us the opportunity in taking care of the patient. Samuel Banda MD [facility] # [id number]
[2017-06-11] MEDS: Pantoprazole 40 mg EC Tab PO SCH (05:32)
[2017-06-11 07:03] LABS: BASO # 0.01 K/mm3 (0.0-2.0); BASO % 0.2 % (0.0-3.0); EOS # 0.2 (0.0-0.7); EOS % 3.5 % (1.5-5.0); GRAN # 2.73 (1.4-6.5); GRAN % 53.7 % (50.0-68.0); HEMOGLOBIN 8.7 g/dL (12.0-16.0); LYMPH # 1.7 (1.2-3.4); LYMPH % 32.8 % (22.0-35.0); MEAN CELL VOLUME 68.8 fl (80.0-105.0); MEAN CORPUSCULAR HEMOGLOBIN 22.1 pg (25.0-35.0); MEAN CORPUSCULAR HGB CONC 32.1 g/dl (31.0-37.0); MEAN PLATELET VOLUME 9.5 fl (7.0-11.0); MONO # 0.5 (0.1-0.6); MONO % 9.8 % (1.0-6.0); RBC 3.94 10^6/uL (3.5-6.1); RED CELL DISTRIBUTION WIDTH 19.4 % (11.5-14.5); WHITE BLOOD COUNT 5.1 10^3/ul (4.5-11.0)
[2017-06-11 07:49] LABS: CALCIUM 9.6 mg/dL (8.4-10.5)
[2017-06-11] MEDS: Metoprolol Succinate 25 mg XL Tab PO SCH (08:00)
--- NOTE | 2017-06-11 09:42 | PN ---
DATE: SUBJECTIVE: The patient has no complaints. There have been no acute events overnight. She is here for physical therapy. PHYSICAL EXAMINATION: VITAL SIGNS: Temperature 98.5, pulse rate 76, blood pressure 149/73, respiratory rate of 20, O2 saturation of 93% on room air. HEENT: PERRLA, EOMI. No icterus. LUNGS: Clear bilaterally. HEART: With a regular rate and rhythm. ABDOMEN: Benign. NEUROLOGIC: There are no focal motor neurologic deficits. LAB VALUES: Hemoglobin of 8.7, which is up from 8.3; hematocrit of 27.1. Chemistry is essentially normal. Continue physical therapy. Jean-Paul Jane MD
[2017-06-11] MEDS: Potassium & Sodium Phosphate PO SCH ×3 (10:23→17:52)
[2017-06-11] MEDS: Cholestyramine 4 gm/Pkt UD PO SCH (10:24)
--- NOTE | 2017-06-11 13:38 | PN ---
DATE: 06/11/2017 SUBJECTIVE: The patient is currently in Transitional Care Unit. There have been no acute events overnight. PHYSICAL EXAMINATION VITAL SIGNS: Temperature of 97.4, pulse rate 82, blood pressure 114/89, respiratory rate of 18, O2 saturation of 94% on room air. HEENT: Negative. NECK: Supple with full range of motion. LUNGS: Clear. HEART: With regular rate and rhythm. ABDOMEN: Benign. NEUROLOGIC: There are no focal deficits. Of note, there is 1+ ankle edema. LABORATORY DATA: Hemoglobin and hematocrit is 8.9 and 28.5, which has been steady for the last three days. Random glucose of 133. The patient will continue on physical therapy. Jean-Paul Jane MD
--- NOTE | 2017-06-11 21:30 | CON ---
DATE: HISTORY OF PRESENT ILLNESS: Patient is a 77-year-old female patient who has been seen by Psychiatry on the TCU due to continued delirium. Dr. Tanner has been following up with the patient and saw patient yesterday. I reviewed Dr. Tanner 's progress note. I met with patient at bedside. Dr. Tanner noted that the patient has been improving in mental status as well as behavior, and she appeared to be much more oriented and confirmed this by obtain collaterals from patient's . Patient did not require any Seroquel yesterday and did not require any Seroquel overnight. As noted, I met with patient at bedside today and patient continues to show improvement in mental status. She is oriented to month, location, year, and circumstances. She recalls that she was confused and "I was talking out of my head." Patient indicates that her mood is generally neutral and her affect is congruent to this. She reports that she generally feels hopeful. She has no major complaints except for anticipating discharge. Specifically, she denies any hallucination, paranoia, or any pain or discomfort at this time. She is generally coherent and her responses are consistent and logical. Patient indicates that she did not sleep very well yesterday and she was reminded about the use of sleep agents on p.r.n. and patient indicates that she will try it tonight. She shows appropriate concern about her condition as well as the fact that her daughter recently suffered a fall due to the weather conditions and patient is worried about daughter's physical health as she appeared to have suffered a hip fracture during this fall earlier this week. Generally, her insight and judgement are much improved and mood appears to be improved consistently. OBJECTIVE: VITAL SIGNS: Temperature 98.1, pulse 77, blood pressure 132/64, respirations 18, . LABORATORY DATA: Was consistent with yesterdays' labs. No changes. The patient's relevant psychiatric medications include Seroquel 25 mg p.o. at bedtime, Ambien 5 mg p.o. at bedtime p.r.n. Patient received most of his medications yesterday. IMPRESSION: Multifactorial delirium, improving. RECOMMENDATION: We will discontinue Seroquel as patient had been in good control in the last 48 hours and has not required this medication. Her mental status also is improving well. Ambien will be kept on board; however, patient was warned about not using this medication acceptably due to association with confusion and memory issues that can occur overnight. Psychiatry will sign off at this time. We will consult if there are any acute changes in patient's behavior or mentation. Cindi Simpson MD
[2017-06-11] MEDS: guaiFENesin DM 100 mg-10 mg/5 ml UD PO PRN (23:46)
[2017-06-12] MEDS: Pantoprazole 40 mg EC Tab PO SCH (06:04)
[2017-06-12 07:19] LABS: BASO # 0.01 K/mm3 (0.0-2.0); BASO % 0.2 % (0.0-3.0); EOS # 0.2 (0.0-0.7); EOS % 3.4 % (1.5-5.0); GRAN # 2.66 (1.4-6.5); GRAN % 50.5 % (50.0-68.0); LYMPH # 1.9 (1.2-3.4); LYMPH % 36.4 % (22.0-35.0); MEAN CELL VOLUME 68.7 fl (80.0-105.0); MEAN CORPUSCULAR HEMOGLOBIN 22.2 pg (25.0-35.0); MEAN CORPUSCULAR HGB CONC 32.3 g/dl (31.0-37.0); MEAN PLATELET VOLUME 9.3 fl (7.0-11.0); MONO # 0.5 (0.1-0.6); MONO % 9.5 % (1.0-6.0); RBC 3.61 10^6/uL (3.5-6.1); WHITE BLOOD COUNT 5.3 10^3/ul (4.5-11.0)
[2017-06-12 07:42] LABS: CALCIUM 9.4 mg/dL (8.4-10.5)
--- NOTE | 2017-06-12 09:06 | PN ---
SUBJECTIVE: The patient was seen and examined at bedside on the TCU. Overnight she was noted to be confused with sundowning but during the day she was entirely lucid. This morning she is sleeping heavily but arousable and offers no complaints. OBJECTIVE: VITAL SIGNS: Temperature 98.1, pulse 77, blood pressure 152/68, respiratory rate 20, oxygen saturation 100% on room air. GENERAL: No apparent distress. HEENT: PERRL, EOMI. No scleral icterus. Mild conjunctival pallor is noted. NECK: Supple with full range of motion. LUNGS: Clear to auscultation. CARDIOVASCULAR: Regular rate and rhythm. Normal S1 and S2. ABDOMEN: Normoactive bowel sounds. Soft, nontender and nondistended. EXTREMITIES: No edema. NEUROLOGIC: Somnolent, but arousable. Alert and oriented x 3. Moving all extremities. LABORATORY DATA: WBC 5.3, hemoglobin 8, hematocrit 25, platelets 226, MCV 69. Chemistry reviewed and unremarkable. ASSESSMENT: The patient is a 77 year old woman with a past medical history of CAD, COPD, HTN and iron deficiency anemia who presented for evaluation of a several day history of lethargy, malaise and generalized weakness and who was initially admitted to the remote telemetry [facility] for management of symptomatic anemia and dehydration whose hospital course was complicated by AMS and who was subsequently transferred to the TCU for continued PT. PLAN: 1. Altered mental status, etiology likely secondary to sundowning syndrome, resolving. Input from Dr. Zuñiga greatly appreciated. Continue Seroquel 25 mg p.o. at bedtime. 2. Acute kidney injury, resolved. The patient remains off IV fluids and is encouraged to continue p.o. intake. 3. Iron deficiency anemia. Labs demonstrate Hb at baseline (8-9). Stool occult blood negative. Continue Feosol 324 mg p.o. t.i.d. 4. CAD s/p stent. Continue ASA 81 mg p.o. daily, Plavix 75 mg p.o. daily, Lisinopril 2.5 mg p.o. daily and Toprol XL 25 mg p.o. daily. 5. Hypertension. Blood pressure controlled. Continue current medications. 6. COPD. Continue with supplemental oxygen and bronchodilators as needed. 7. Anxiety disorder. 8. Deconditioning. Continue with PT. 9. Prophylaxis. Continue Protonix for GI prophylaxis and SCDs for DVT prophylaxis. CODE STATUS: Full code. Lino Jane MD [place]
[2017-06-12] MEDS: Metoprolol Succinate 25 mg XL Tab PO SCH (10:19)
[2017-06-12] MEDS: Potassium & Sodium Phosphate PO SCH ×3 (10:20→17:50)
[2017-06-12] MEDS: Cholestyramine 4 gm/Pkt UD PO SCH (10:21)
[2017-06-12] MEDS: Albuterol 0.083% Inhal Sol (2.5 mg/3 mL) UD IH PRN (16:01)
[2017-06-13] MEDS: Pantoprazole 40 mg EC Tab PO SCH (05:33)
[2017-06-13] MEDS: Albuterol 0.083% Inhal Sol (2.5 mg/3 mL) UD IH PRN (07:14)
[2017-06-13 07:16] LABS: BASO # 0.01 K/mm3 (0.0-2.0); BASO % 0.2 % (0.0-3.0); EOS # 0.2 (0.0-0.7); EOS % 3.2 % (1.5-5.0); GRAN # 2.32 (1.4-6.5); GRAN % 46.6 % (50.0-68.0); HEMOGLOBIN 7.9 g/dL (12.0-16.0); LYMPH % 40.2 % (22.0-35.0); MEAN CELL VOLUME 69.3 fl (80.0-105.0); MEAN CORPUSCULAR HEMOGLOBIN 21.9 pg (25.0-35.0); MEAN CORPUSCULAR HGB CONC 31.6 g/dl (31.0-37.0); MEAN PLATELET VOLUME 9.5 fl (7.0-11.0); MONO # 0.5 (0.1-0.6); MONO % 9.8 % (1.0-6.0); RBC 3.61 10^6/uL (3.5-6.1); RED CELL DISTRIBUTION WIDTH 18.8 % (11.5-14.5)
[2017-06-13 07:30] LABS: BLOOD UREA NITROGEN 21 mg/dL (7-21); GFR AFRICAN-AMERICAN > 60; GFR NON-AFRICAN AMERICAN 54
[2017-06-13] MEDS: Metoprolol Succinate 25 mg XL Tab PO SCH (08:00)
[2017-06-13] MEDS: Potassium & Sodium Phosphate PO SCH ×3 (09:34→17:25)
[2017-06-13] MEDS: Cholestyramine 4 gm/Pkt UD PO SCH (09:35)
--- NOTE | 2017-06-13 15:37 | PN ---
SUBJECTIVE: The patient was seen and examined at bedside in the TCU. No acute events overnight. She remains afebrile and hemodynamically stable and is demonstrating significant improvement in her mentation. This morning she appears to be at her baseline, states she feels great and offers no complaints. OBJECTIVE: VITAL SIGNS: Temperature 98.7, pulse 68, blood pressure 116/62, respiratory rate 18, oxygen saturation 96% on room air. GENERAL: No apparent distress. HEENT: PERRL, EOMI. No scleral icterus. Conjunctival pallor is noted. NECK: Supple with full range of motion. LUNGS: Clear to auscultation. CARDIOVASCULAR: Regular rate and rhythm. Normal S1 and S2. ABDOMEN: Normoactive bowel sounds. Soft, nontender and nondistended. EXTREMITIES: No edema. NEUROLOGIC: Awake, alert and oriented x3. No focal motor deficits. LABORATORY DATA: WBC 5, hemoglobin 7.9, hematocrit 25, platelets 221,000. MCV 69. Chemistry reviewed and unremarkable. ASSESSMENT: The patient is a 77 year old woman with a past medical history of CAD, COPD, HTN and iron deficiency anemia who presented for evaluation of a several day history of lethargy, malaise and generalized weakness and was initially admitted to the remote telemetry [facility] for management of symptomatic anemia and dehydration whose hospital course was complicated by AMS and was subsequently transferred to the TCU for continued PT. PLAN 1. Altered mental status, etiology likely secondary to sundowning syndrome, resolved. Input from Dr. Zuñiga greatly appreciated. Continue Seroquel 25 mg p.o. at bedtime. 2. Acute kidney injury, resolved. The patient remains off IV fluids and is encouraged to continue the p.o. intake. 3. Iron deficiency anemia. Labs demonstrate Hb at baseline. Stool occult blood negative. Continue Feosol 324 mg p.o. t.i.d. 4. CAD s/p stent. Continue Aspirin 81 mg p.o. daily, Plavix 75 mg p.o. daily, Lisinopril 2.5 mg p.o. daily and Toprol-XL 25 mg p.o. daily. 5. Hypertension. Blood pressure controlled. Continue current medications. 6. COPD. Continue supplemental oxygen and bronchodilators as needed. 7. Anxiety disorder. 8. Deconditioning. Continue with PT. 9. Prophylaxis. Continue Protonix for GI prophylaxis and SCDs for DVT prophylaxis. CODE STATUS: Full code. Lion Jane MD JOSEPHINE
[2017-06-14] MEDS: Pantoprazole 40 mg EC Tab PO SCH (05:13)
[2017-06-14 06:06] LABS: BASO # 0.01 K/mm3 (0.0-2.0); BASO % 0.2 % (0.0-3.0); EOS # 0.2 (0.0-0.7); EOS % 3.4 % (1.5-5.0); GRAN # 2.25 (1.4-6.5); GRAN % 51.3 % (50.0-68.0); HEMOGLOBIN 7.7 g/dL (12.0-16.0); LYMPH # 1.6 (1.2-3.4); LYMPH % 35.5 % (22.0-35.0); MEAN CELL VOLUME 69.8 fl (80.0-105.0); MEAN CORPUSCULAR HEMOGLOBIN 21.8 pg (25.0-35.0); MEAN CORPUSCULAR HGB CONC 31.2 g/dl (31.0-37.0); MEAN PLATELET VOLUME 10.2 fl (7.0-11.0); MONO # 0.4 (0.1-0.6); MONO % 9.6 % (1.0-6.0); RBC 3.54 10^6/uL (3.5-6.1); RED CELL DISTRIBUTION WIDTH 18.9 % (11.5-14.5); WHITE BLOOD COUNT 4.4 10^3/ul (4.5-11.0)
[2017-06-14 06:30] LABS: CALCIUM 9.2 mg/dL (8.4-10.5)
--- NOTE | 2017-06-14 06:36 | PN ---
DATE: 06/11/2017 REASON FOR CONSULTATION AND FOLLOWUP: Cardiac evaluation, followup and continuity of care in Transitional Care Unit, history of coronary artery disease, history of peripheral arterial disease, admitted with anemia, altered mental status and acute kidney injury. SUBJECTIVE: The patient denies any chest pain, shortness of breath, or any palpitation. OBJECTIVE: GENERAL: Not in apparent distress. VITAL SIGNS: As follows: Temperature afebrile, heart rate 75, blood pressure 132/64. HEENT: PERRLA. Extraocular muscles intact. NECK: Supple. No carotid bruit or thyromegaly. CHEST: Clear to auscultation. HEART: S1 and S2 regular. ABDOMEN: Soft. EXTREMITIES: Clubbing and cyanosis negative. LABORATORY DATA: Blood workup as follows: WBC 5.1, hemoglobin , hematocrit 27.1, platelet count 246. Chemistry shows sodium 143, potassium 4.0, chloride 101, carbon dioxide 21, anion gap of 14, BUN 20, creatinine 1.2. IMPRESSION: Altered mental status, acute kidney injury, anemia, status post packed red blood cell transfusion, history of coronary artery disease, history of percutaneous transluminal coronary angioplasty of coronary, history of peripheral arterial disease, status post percutaneous transluminal angioplasty of both lower extremities, altered mental status, deconditioning of body, no evidence of acute myocardial infarction. RECOMMENDATION: Continue supplement, monitor H and H, continue rehab, possible discharge in a day or two, supplement electrolytes, continue aspirin, continue Plavix, continue ferrous sulfate. H and H is stable. Since admission it is improving. We will follow with you. Possible discharge home in a.m. Thank you, Dr. Lino Jane, for providing us the opportunity in taking care of the patient, Pura [place]. Samuel Banda MD
[2017-06-14] MEDS: Albuterol 0.083% Inhal Sol (2.5 mg/3 mL) UD IH PRN ×2 (07:11→23:30)
[2017-06-14] MEDS: Metoprolol Succinate 25 mg XL Tab PO SCH (08:04)
[2017-06-14] MEDS: Potassium & Sodium Phosphate PO SCH ×3 (10:05→17:52)
[2017-06-14] MEDS: Cholestyramine 4 gm/Pkt UD PO SCH (10:05)
--- NOTE | 2017-06-14 11:40 | PN ---
SUBJECTIVE: The patient was seen and examined at bedside on the TCU. No acute events overnight. She remains afebrile and hemodynamically stable and appears to have returned to her baseline mentation. This morning she feels great and is eagerly anticipating discharge to home. Of note, there have been no further episodes of delirium overnight. PHYSICAL EXAMINATION: VITAL SIGNS: Temperature 97.2, pulse 80, blood pressure 164/72, respiratory rate 18, oxygen saturation 100% on room air. GENERAL: No apparent distress. HEENT: PERRL, EOMI. No scleral icterus. Conjunctival pallor is noted. NECK: Supple with full range of motion. LUNGS: Clear to auscultation. CARDIOVASCULAR: Regular rate and rhythm. Normal S1 and S2. ABDOMEN: Normoactive bowel sounds, soft, nontender and nondistended. EXTREMITIES: No edema. NEUROLOGIC: Awake, alert and oriented x3. No focal motor deficits. LABORATORY DATA: WBC 4.4, hemoglobin 7.7, hematocrit 25, platelets 232, MCV 69. Chemistry reviewed and unremarkable. ASSESSMENT: The patient is a 77 year old woman with a past medical history of CAD, COPD, HTN and iron-deficiency anemia who presented for evaluation of a several day history of lethargy, malaise and generalized weakness and was initially admitted to the remote telemetry [facility] for management of symptomatic anemia and dehydration whose hospital course was complicated by AMS and was subsequently transferred to the TCU for continued PT. PLAN: 1. Altered mental status, etiology likely secondary to sundowning syndrome, resolved. Input from Dr. Zuñiga greatly appreciated. Continue Seroquel 25 mg p.o. at bedtime. 2. Acute kidney injury, resolved. 3. Iron deficiency anemia. Labs demonstrate Hb at baseline. Stool occult blood is negative. Continue Feosol 324 mg p.o. t.i.d. 4. CAD s/p PCI with stent placement. Continue Aspirin 81 mg p.o. daily, Plavix 75 mg p.o. daily, Lisinopril 2.5 mg p.o. daily and Toprol-XL 25 mg p.o. daily. 5. Hypertension. Blood pressure controlled. Continue with current medications. 6. COPD. Continue supplemental oxygen and bronchodilators as needed. 7. Anxiety disorder. 8. Deconditioning. Continue with PT. 9. Prophylaxis. Continue Protonix for GI prophylaxis and SCDs for DVT prophylaxis. CODE STATUS: Full code. Lino Jane MD JOSEPHINE
[2017-06-14 16:24] VITALS: RESP 18
--- NOTE | 2017-06-14 16:30 | PN ---
DATE: 06/14/2017 LOCATION: Room 327, bed 2. REASON FOR CONSULTATION AND FOLLOWUP: Cardiac evaluation, followup continued care in Intensive Care Unit, coronary artery disease, peripheral arterial disease, admitted with anemia, altered mental status, acute kidney injury. SUBJECTIVE: The patient is sitting comfortably in bed without chest pain, shortness of breath or palpitation. PHYSICAL EXAMINATION: VITAL SIGNS: Blood pressure 127/64, respirations 18, pulse 69, temperature 97.2. HEENT: Head is normocephalic. Eyes: Pupils are normal. Conjunctiva slightly pale. NECK: JVP low. Carotids equal. THORAX: AP diameter normal. LUNGS: Clear. CARDIOVASCULAR: S1 and S2. ABDOMEN: Soft. No tenderness. No organomegaly. EXTREMITIES: No clubbing, no cyanosis. LABORATORY DATA: WBC 4.4, hemoglobin 7.7, hematocrit 24.7, platelet 232. Sodium 142, potassium 3.9, BUN 23, creatinine 1.1, glucose 87, calcium 9.2. DIAGNOSES: Altered mental status, acute kidney injury, anemia, status post red blood cell transfusion, history of coronary artery disease, history of angioplasty for coronary artery disease, history of peripheral arterial disease status post percutaneous transluminal angioplasty on both lower extremities, deconditioning. PLAN: The patient is getting iron therapy, Feosol, aspirin 81 daily, ferrous sulfate 324 mg p.o. t.i.d., Plavix 75 daily, Protonix 40 daily, Seroquel 25 mg at bedtime, metoprolol 25 daily, lisinopril 2.5 daily. Monitor the hemoglobin, hematocrit and electrolytes. We will continue physical therapy for deconditioning. We will follow with you. Samuel Begum MD
[2017-06-15] MEDS: Pantoprazole 40 mg EC Tab PO SCH (06:22)
[2017-06-15 06:55] LABS: BASO # 0.01 K/mm3 (0.0-2.0); BASO % 0.2 % (0.0-3.0); EOS # 0.2 (0.0-0.7); EOS % 3.9 % (1.5-5.0); GRAN # 1.98 (1.4-6.5); GRAN % 48.3 % (50.0-68.0); HEMOGLOBIN 8.2 g/dL (12.0-16.0); LYMPH # 1.6 (1.2-3.4); LYMPH % 38.3 % (22.0-35.0); MEAN CELL VOLUME 70.2 fl (80.0-105.0); MEAN CORPUSCULAR HGB CONC 31.3 g/dl (31.0-37.0); MEAN PLATELET VOLUME 10.2 fl (7.0-11.0); MONO # 0.4 (0.1-0.6); MONO % 9.3 % (1.0-6.0); RBC 3.73 10^6/uL (3.5-6.1); RED CELL DISTRIBUTION WIDTH 18.9 % (11.5-14.5); WHITE BLOOD COUNT 4.1 10^3/ul (4.5-11.0)
[2017-06-15 07:07] LABS: CALCIUM 9.6 mg/dL (8.4-10.5)
[2017-06-15] MEDS: Metoprolol Succinate 25 mg XL Tab PO SCH (08:02)
[2017-06-15] MEDS: Potassium & Sodium Phosphate PO SCH (10:00)
[2017-06-15] MEDS: Cholestyramine 4 gm/Pkt UD PO SCH (10:00)
--- NOTE | 2017-06-15 11:15 | PN ---
SUBJECTIVE: The patient was seen and examined at bedside on the TCU. No acute events overnight. She remains afebrile and hemodynamically stable. This morning she states she feels great, offers no complaints and is looking forward to discharge to home. PHYSICAL EXAMINATION: VITAL SIGNS: Temperature 98.3, pulse 61, blood pressure 142/61, respiratory rate 18, oxygen saturation 97% on room air. GENERAL: No apparent distress. HEENT: PERRL, EOMI. No scleral icterus. Conjunctival pallor is noted. NECK: Supple with full range of motion. LUNGS: Clear to auscultation. CARDIOVASCULAR: Regular rate and rhythm. Normal S1 and S2. ABDOMEN: Normoactive bowel sounds. Soft, nontender and nondistended. EXTREMITIES: No edema. NEUROLOGIC: Awake, alert and oriented x3. No focal motor deficits. LABORATORY DATA: WBC 4.1, hemoglobin 8.2, hematocrit 26, platelets 246, MCV 70. Chemistry reviewed and unremarkable. ASSESSMENT: The patient is a 77 year old woman with a past medical history of CAD, COPD, HTN and iron-deficiency anemia who presented for evaluation of a several day history of lethargy, malaise and generalized weakness and was initially admitted to the remote tele[facility] for management of symptomatic anemia and dehydration whose hospital course was complicated by AMS and who was subsequently transferred to the TCU for continued PT. PLAN: 1. Altered mental status, etiology likely secondary to sundowning syndrome, resolved. Continue Seroquel 25 mg p.o. at bedtime. 2. JORDYN, resolved. 3. Iron deficiency anemia. Labs demonstrate Hb at baseline. Stool occult blood is negative. Continue Feosol 324 mg p.o. t.i.d. 4. CAD s/p PCI with stent. Continue aspirin 81 mg p.o. daily, Plavix 75 mg p.o. daily, Lisinopril 2.5 mg p.o. daily and Toprol-XL 25 mg p.o. daily. 5. Hypertension. Blood pressure controlled. Continue with current medications. 6. COPD. Continue supplemental oxygen and bronchodilators as needed. 7. Anxiety disorder. 8. GI prophylaxis is not indicated as the patient is eating. Continue SCDs for DVT prophylaxis. 9. Disposition. The patient to be discharged home today. CODE STATUS: Full code. Lnio Jane MD [place] # [id number] JOSEPHINE
[2017-06-15 11:17] VITALS: BP 156/79; PULSE 77; TEMP 97.6; O2SAT 98
--- NOTE | 2017-06-15 16:07 | PN ---
DATE: 06/15/2017 REASON FOR THE CONSULTATION AND FOLLOWUP: Cardiac evaluation, followup and continuity of care in Transitional Care Unit, peripheral arterial disease admitted with anemia, altered mental status, acute kidney injury ____. Now, the patient is in Transitional Care Unit for continued care. SUBJECTIVE: Denies any chest pain, shortness of breath or any palpitations. PHYSICAL EXAMINATION GENERAL: Not in any apparent distress, sitting at bedside. VITAL SIGNS: Temperature afebrile, heart rate 61, blood pressure 142/61. HEENT: PERRLA. Extraocular muscles intact. NECK: Supple. No carotid bruit or thyromegaly. CHEST: Clear to auscultation. HEART: S1 and S2 regular. ABDOMEN: Soft. EXTREMITIES: Clubbing and cyanosis negative. LABORATORY DATA: Blood workup as follows: WBC , hemoglobin , hematocrit 26.2 and platelet count 246,000. Chemistry shows sodium 143, potassium 4.5, chloride 112, carbon dioxide 22, anion gap of 13, BUN 23 and creatinine of 1.1. IMPRESSION: Anemia, status post packed red blood cell transfusion; acute kidney injury, improved; history of coronary artery disease; altered mental status secondary to metabolic encephalopathy; diabetes; hypertension; hyperlipidemia; peripheral arterial disease with coronary artery disease. RECOMMENDATIONS: Continue aspirin. Continue Plavix. Continue iron supplement. Supplement electrolytes as needed. We will follow with you. Thank you Dr. Lino Jane for providing me the opportunity in taking care of Pura Castle. Samuel Banda MD
--- NOTE | 2017-06-16 16:53 | DS ---
ADMITTING DIAGNOSIS: Altered mental status secondary to sundowning syndrome. DISCHARGE DIAGNOSIS: Altered mental status secondary to sundowning syndrome (resolved). SECONDARY DIAGNOSES: Iron deficiency anemia, CAD s/p PCI with stent placement, COPD, HTN and anxiety disorder. CONSULTATIONS: Dr. Tanner (Psychiatry) and Dr. Banda (Cardiology). IMAGING STUDIES: None. PROCEDURES: None. HISTORY OF PRESENT ILLNESS: The patient is a 77 year old woman with a past medical history of CAD s/p PCI with stent placement, hypertension, COPD and iron deficiency anemia who presented to [facility] for evaluation of a several day history of lethargy, malaise and generalized weakness. She was initially admitted to the remote telemetry [facility] for management of symptomatic anemia, dehydration and acute kidney injury. After resolution of her acute presenting symptoms, she was noted to develop significant delirium secondary to sundowning syndrome and was found to be quite deconditioned on evaluation by physical therapy. Recommendations were made for transfer to the TCU for continued gait training, strengthening exercises and PT and by hospital day #5, she was deemed stable for transfer to the TCU. HOSPITAL COURSE: Upon admission to the TCU the patient was encouraged to maintain an adequate p.o. intake. She was noted to have continued improvement resolution of her altered mental status and was found to be actively participating with physical therapy. She was excelling with the physical therapy and on TCU day #4, she stated she felt great, felt to be back to her baseline and wanted to be discharged to home. CONDITION: Good, improved. DISPOSITION: Home. DISCHARGE MEDICATIONS: Aspirin 81 mg p.o. daily, Plavix 75 mg p.o. daily, Feosol 324 mg p.o. t.i.d., Lisinopril 2.5 mg p.o. daily, Toprol-XL 25 mg p.o. daily, Protonix 40 mg p.o. daily, ProAir HFA 2 puffs q. 4-6 hrs p.r.n. dyspnea or wheeze and Dulera 200 mcg 2 puffs b.i.d. DISCHARGE INSTRUCTIONS: The patient was advised to maintain an adequate fluid intake and to not skip meals as she was doing previously. She was also advised that if she has any recurrence of her symptoms to present to her PMD or to the nearest ED immediately. FOLLOWUP: The patient to follow up with her PMD within 1 week of discharge. The patient to follow up with her hospice social worker as scheduled. Lino Jane MD JOSEPHINE
== END 2017-06-15 13:13 | disposition home health service (06) | DRG 945 ==
LOC: TRCU 16:26
PROVIDERS: ADMIT Student in an Organized Health Care Education/Training Program; ATTEND Student in an Organized Health Care Education/Training Program
PROC: 3E0F7GC Introduction of Other Therapeutic Substance into Respiratory Tract, Via Natural or Artificial Opening (ICD-10-PCS; 2017-06-09)
PROC: F07Z9ZZ Gait Training/Functional Ambulation Treatment (ICD-10-PCS; principal; 2017-06-10)
PROC: F08Z4ZZ Home Management Treatment (ICD-10-PCS; 2017-06-10)
DX: R53.1 Weakness (principal); D50.9 Iron deficiency anemia, unspecified; G93.41 Metabolic encephalopathy; F05 Delirium due to known physiological condition; E86.0 Dehydration; J44.9 Chronic obstructive pulmonary disease, unspecified; I25.10 Atherosclerotic heart disease of native coronary artery without angina pectoris; I10 Essential (primary) hypertension; F41.9 Anxiety disorder, unspecified; E11.51 Type 2 diabetes mellitus with diabetic peripheral angiopathy without gangrene; E78.5 Hyperlipidemia, unspecified; G47.00 Insomnia, unspecified; Z95.5 Presence of coronary angioplasty implant and graft

== ENCOUNTER 2017-08-04 07:58 | Day surgery (SDC) | payer MEDICARE ==
[2017-08-02 09:05] VITALS: BMI 26.4
[2017-08-04] MEDS ORDERED: Propofol 10 mg/ml Inj (20 ML) ONE (10:11)
[2017-08-04] MEDS ORDERED: Sodium Chloride 0.9% 1,000 ML IV SCH (10:30)
[2017-08-04 11:20] VITALS: O2SAT 99
[2017-08-04 11:45] VITALS: BP 123/57; PULSE 74; RESP 18; TEMP 98
== END 2017-08-04 12:25 | disposition home or self-care (01) ==
LOC: ENDO 07:58
PROVIDERS: ATTEND Specialist
DX: D50.9 Iron deficiency anemia, unspecified (principal); K22.5 Diverticulum of esophagus, acquired; K44.9 Diaphragmatic hernia without obstruction or gangrene; K29.40 Chronic atrophic gastritis without bleeding; I25.10 Atherosclerotic heart disease of native coronary artery without angina pectoris; I73.9 Peripheral vascular disease, unspecified; J44.9 Chronic obstructive pulmonary disease, unspecified; M19.90 Unspecified osteoarthritis, unspecified site; N18.9 Chronic kidney disease, unspecified; I25.2 Old myocardial infarction; Z90.49 Acquired absence of other specified parts of digestive tract; R19.7 Diarrhea, unspecified
CPT/HCPCS: 43239; 88305; 88342; J2704; J7040 ×2

== ENCOUNTER 2018-04-29 16:25 | Inpatient (IN) | payer MEDICARE ==
[2018-04-29] MEDS ORDERED: Albuterol-Ipratrop 3 mg / 0.5 (3 ml) UD IH STA (16:37)
--- NOTE | 2018-04-29 16:43 | ED PDOC ---
Arrival/HPI - General Chief Complaint: Shortness Of Breath Time Seen by Provider: 04/29/18 16:27 Historian: Patient, Spouse - Critical Care Critical Care Minutes: 30 minutes - History of Present Illness Time/Duration: Other (last evening) Symptom Onset: Gradual Symptom Course: Improving Severity Level: Mild Activities at Onset: Rest Associated Symptoms (Text): 04/29/18 16:39 Patient complains of shortness of breath beginning last evening. She used her albuterol inhaler and had improvement in her symptoms. She is currently taking Cipro for UTI for the last 2 or 3 days. No cough congestion or URI. No chest pain or palpitations. No back pain. No fever or chills. There is no respiratory distress. No accessory muscle use. No retractions. No tachypnea. Past Medical History - Infectious Disease Hx of Infectious Diseases: None - Tetanus Immunization Tetanus Immunization: Up to Date - Cardiac Hx AL: Yes Hx Hypertension: Yes Hx Pacemaker: No - Pulmonary Hx Asthma: Yes Hx Chronic Obstructive Pulmonary Disease (COPD): Yes - Neurological Hx Paralysis: No - HEENT Hx HEENT Disorder: No - Hematological/Oncological Hx Anemia: Yes Hx Blood Transfusions: Yes (06/06/17) Hx Blood Transfusion Reaction: No - Integumentary Hx Dermatological Disorder: No - Musculoskeletal/Rheumatological Hx Musculoskeletal Disorders: Yes - Gastrointestinal Hx Gastrointestinal Disorders: Yes (APPENDECTOMY,CHOLECYSTECTOMY) Hx Diverticulitis: Yes (colon resectin with colostomy 10 yrs ago, colostomy reversal 6 mo later) - Genitourinary/Gynecological Hx Genitourinary Disorders: No Hx Reproductive Disorders: No - Psychiatric Hx Emotional Abuse: No Hx Physical Abuse: No Hx Substance Use: No - Surgical History Hx Appendectomy: Yes Hx Cardiac Catheterization: Yes Hx Cholecystectomy: Yes Hx Hysterectomy: Yes - Anesthesia Hx Anesthesia Reactions: No Hx Malignant Hyperthermia: No - Suicidal Assessment Feels Threatened In Home Enviroment: No Family/Social History - Physician Review Nursing Documentation Reviewed: Yes Family/Social History: Unknown Family HX Smoking Status: Former Smoker (quit smoking 30 years ago) Hx Alcohol Use: No Hx Substance Use: No Hx Substance Use Treatment: No Allergies/Home Meds Allergies/Adverse Reactions: Allergies sulfamethoxazole [From Bactrim] Allergy (Verified 08/02/17 09:07) RASH PREVIOUS SCREEN NOTED REACTION TO BE ANAPHYLAXIS PER PT- REACTION IS A RASH trimethoprim [From Bactrim] Allergy (Verified 08/02/17 09:07) RASH Home Medications: Home Meds Medication Instructions Recorded Confirmed RX: Albuterol Sulfate [Proair Hfa] 1 puff IH PRN PRN 08/18/16 08/02/17 RX: Aspirin [Ecotrin] 81 mg PO DAILY 08/18/16 08/04/17 RX: Clopidogrel [Plavix] 75 mg PO DAILY 08/18/16 08/04/17 RX: Lisinopril [Zestril] 2.5 mg PO QAM 06/04/17 08/04/17 RX: Metoprolol Succinate [Toprol 25 mg PO QAM 06/04/17 08/04/17 Xl] Albuterol Sulfate [Proair Hfa] 2 puff IH Q12H 08/02/17 08/04/17 L.acidoph,Paracasei, B.lactis 1 each PO QAM 08/02/17 08/04/17 [Probiotic] RX: Levothyroxine [Synthroid] 1 tab PO QAM 08/02/17 08/04/17 RX: Zolpidem [Ambien] 2.5 mg PO HS PRN 08/02/17 08/04/17 RX: Cholestyramine [Questran] 4 gm PO TID 08/04/17 08/04/17 Review of Systems - Physician Review All systems were reviewed & negative as marked: Yes - Review of Systems Constitutional: absent: Fatigue, Fevers Respiratory: SOB, Wheezing. absent: Cough, Sputum Cardiovascular: absent: Chest Pain, Palpitations, Syncope Gastrointestinal: absent: Abdominal Pain, Nausea, Vomiting Genitourinary Female: absent: Dysuria, Frequency, Hematuria Neurological: absent: Headache, Dizziness, Focal Weakness Physical Exam Vital Signs Temp Pulse Resp BP Pulse Ox 04/29/18 16:33 98.2 F 92 H 20 148/103 H 98 Temperature: Afebrile Blood Pressure: Hypertensive Pulse: Regular Respiratory Rate: Normal Appearance: Positive for: Well-Appearing, Non-Toxic, Comfortable Pain Distress: None Mental Status: Positive for: Alert and Oriented X 3 - Systems Exam Head: Present: Atraumatic, Normocephalic Pupils: Present: PERRL Extroacular Muscles: Present: EOMI Conjunctiva: Present: Normal Ears: Present: NORMAL TM, Normal Canal. No: Erythema, TM Bulging Mouth: Present: Moist Mucous Membranes Pharnyx: No: ERYTHEMA, EXUDATE, TONSILS ENLARGED Respiratory/Chest: Present: Good Air Exchange, Wheezes (trace mild bilateral end expiratory wheezing). No: Respiratory Distress, Accessory Muscle Use, Decreased Breath Sounds, Rales, Retracting, Rhonchi, Tachypneic, Tender to Palpation Cardiovascular: Present: Regular Rate and Rhythm, Normal S1, S2. No: Murmurs Abdomen: No: Tenderness, Distention, Peritoneal Signs, Rebound, Guarding Upper Extremity: Present: Normal Inspection. No: Cyanosis, Edema Lower Extremity: Present: Normal Inspection. No: Edema Neurological: Present: GCS=15, CN II-XII Intact, Speech Normal, Motor Func Grossly Intact Skin: Present: Warm, Dry, Normal Color. No: Rashes Psychiatric: Present: Alert, Oriented x 3, Normal Insight, Normal Concentration Medical Decision Making ED Course and Treatment: 04/29/18 16:41 EKG shows normal sinus rhythm rate approximately 90 with a right bundle branch block similar to EKG of 06/04/[address] or T-wave changes. 04/29/18 17:08 Hemoglobin 8.4 is her usual level. 04/29/18 17:[address] Jean-Paul Jane who will admit to ICU. Discussed with Dr. Shanks who accepts to ICU. 04/29/18 17:46 Patient has new onset renal failure with elevated potassium which is not hemolyzed. This was treated with Kayexalate D50 and IV insulin. Her d-dimer was elevated, and a CTA was initially ordered, but canceled secondary to the elevated BUN/creatinine. Bilateral lower extremity venous Dopplers have been ordered. Rose catheter was ordered secondary to the new renal failure. BNP is elevated. Saline bolus had been ordered and response to the new renal failure prior to BNP becoming available. - RAD Interpretation Radiology Orders: 04/29/18 16:38 CHEST PORTABLE [RAD] Stat Chest one view shows no infiltrate effusion or cardiomegaly. Cotton Sampler: ED Physician Disposition/Present on Arrival - Present on Arrival Any Indicators Present on Arrival: No History of DVT/PE: No History of Uncontrolled Diabetes: No Urinary Catheter: No History of Decub. Ulcer: No History Surgical Site Infection Following: None - Disposition Have Diagnosis and Disposition been Completed?: Yes Diagnosis: Anemia, Acute renal failure, UTI (urinary tract infection), Dehydration, Dyspnea, Elevated brain natriuretic peptide (BNP) level, Elevated d-dimer Disposition: HOSPITALIZED Disposition Time: 18:03 Patient Plan: Admission, ICU Condition: CRITICAL
[2018-04-29 17:05] LABS: BASO # 0.02 K/mm3 (0.0-2.0); BASO % 0.3 % (0.0-3.0); EOS # 0.1 (0.0-0.7); EOS % 1.4 % (1.5-5.0); HEMOGLOBIN 8.4 g/dL (12.0-16.0); LYMPH # 1.9 (1.2-3.4); LYMPH % 29.7 % (22.0-35.0); MEAN CELL VOLUME 70.8 fl (80.0-105.0); MEAN CORPUSCULAR HEMOGLOBIN 21.5 pg (25.0-35.0); MEAN CORPUSCULAR HGB CONC 30.3 g/dl (31.0-37.0); MEAN PLATELET VOLUME 9.5 fl (7.0-11.0); MONO # 0.6 (0.1-0.6); MONO % 9.4 % (1.0-6.0); RBC 3.91 10^6/uL (3.5-6.1); WHITE BLOOD COUNT 6.5 10^3/uL (4.5-11.0)
[2018-04-29 17:17] LABS: INR 1.06; PARTIAL THROMBOPLASTIN TIME 31.3 Seconds (26.9-38.3); PROTHROMBIN TIME 11.8 SECONDS (9.4-12.5)
[2018-04-29] MEDS ORDERED: Insulin Regular 1 UNITS/0.01 ML ML IV STA (17:27)
--- NOTE | 2018-04-29 17:27 | RAD ---
Date of service: 04/29/2018 HISTORY: sob COMPARISON: 06/04/2017 FINDINGS: LUNGS: No active pulmonary disease. PLEURA: No significant pleural effusion identified, no pneumothorax apparent. CARDIOVASCULAR: There is atherosclerotic calcification of the thoracic aortic arch. Normal cardiac size. No pulmonary vascular congestion. OSSEOUS STRUCTURES: No significant abnormalities. VISUALIZED UPPER ABDOMEN: Normal. OTHER FINDINGS: None. IMPRESSION: No active disease.
[2018-04-29 17:28] LABS: ALB/GLOB RATIO 1.1 (1.1-1.8); ALBUMIN 3.6 g/dL (3.0-4.8); ALT/SGPT 22 U/L (7-56); AST/SGOT 20 U/L (14-36); B-TYPE NATRIURETIC PEPTIDE 7190 pg/mL (0-450); BLOOD UREA NITROGEN 49 mg/dL (7-21); CALCIUM 8.6 mg/dL (8.4-10.5); GFR NON-AFRICAN AMERICAN 16; TROPONIN I < 0.01 ng/mL
[2018-04-29] MEDS ORDERED: Dextrose 50% SYRINGE Inj (50 ml) IVP STA (17:29)
[2018-04-29] MEDS ORDERED: Sodium Chloride 0.9% 500 ML IV ONE (17:30)
--- NOTE | 2018-04-29 18:04 | CP.CCUPN ---
CCU Subjective - Physician Review Events Since Last Encounter (Free Text): 04/29/18 18:00 77yo female pt presented with shortnss of breath that started this afternoon. Pt has a h\o recurrent UTI and COPD. Pt visited her PMD 2 weeks ago and was diagnosed with UTI and given Abx. Pt does not remember what Abx she was given. She stated she did not feel any better and went to see her PMD again 3 days ago. She was again told that she has UTI and was given a different Abx (Cipro). Today in the afternoon pt felt very short of breath. She attempted to use her inhailer and nebulizer, but did not feel better and came to ED. Pt stated that she has been having difficulty remembering and cannot give full HPI . CCU Objective - Vital Signs / Intake & Output Vital Signs (Last 4 hours): Vital Signs Temp Pulse Resp BP Pulse Ox 04/29/18 17:41 22 100 04/29/18 16:33 98.2 F 92 H 20 148/103 H 98 Intake and Output (Last 8hrs): Intake & Output 04/29/18 04/29/18 04/29/18 06:59 14:59 22:59 Weight 130 lb - Physical Exam Head: Positive for: Atraumatic, Normocephalic Pupils: Positive for: PERRL Extroacular Muscles: Positive for: EOMI Conjunctiva: Positive for: Normal Ears: Positive for: NORMAL TM, Normal Canal. Negative for: Erythema, TM Bulging Mouth: Positive for: Moist Mucous Membranes Pharnyx: Negative for: ERYTHEMA, EXUDATE, TONSILS ENLARGED Respiratory/Chest: Positive for: Good Air Exchange, Wheezes (trace mild bilateral end expiratory wheezing). Negative for: Respiratory Distress, Accessory Muscle Use, Decreased Breath Sounds, Rales, Retracting, Rhonchi, Tachypneic, Tender to Palpation Cardiovascular: Positive for: Regular Rate and Rhythm, Normal S1, S2. Negative for: Murmurs Abdomen: Negative for: Tenderness, Distention, Peritoneal Signs, Rebound, Guarding Upper Extremity: Positive for: Normal Inspection. Negative for: Cyanosis, Edema Lower Extremity: Positive for: Normal Inspection. Negative for: Edema Neurological: Positive for: GCS=15, CN II-XII Intact, Speech Normal, Motor Func Grossly Intact Skin: Positive for: Warm, Dry, Normal Color, Other (rash on chest). Negative for: Rashes Psychiatric: Positive for: Alert, Normal Insight, Normal Concentration. Negative for: Oriented x 3 - Medications Active Medications: Active Medications Generic Name Dose Route Start Last Admin Trade Name Freq PRN Reason Stop Dose Admin Sodium Chloride 500 mls @ 500 mls/hr 04/29/18 17:30 04/29/18 17:57 Sodium Chloride 0.9% IV 04/29/18 18:29 500 mls/hr ONCE ONE Administration Cefepime HCl 1 gm in 100 mls @ 100 mls/hr 04/29/18 18:00 Maxipime 1gm IVPB Q8 [facility] Protocol - Patient Studies Lab Studies: Lab Studies 04/29/18 04/29/18 04/29/18 Range/Units 16:58 16:58 16:58 WBC 6.5 (4.5-11.0) 10^3/uL RBC 3.91 (3.5-6.1) 10^6/uL Hgb 8.4 L (12.0-16.0) g/dL Hct 27.7 L (36.0-48.0) % MCV 70.8 L (80.0-105.0) fl MCH 21.5 L (25.0-35.0) pg MCHC 30.3 L (31.0-37.0) g/dl RDW 18.0 H (11.5-14.5) % Plt Count 252 (120.0-450.0) 10^3/uL MPV 9.5 (7.0-11.0) fl Neut % (Auto) 59.2 (50.0-68.0) % Lymph % (Auto) 29.7 (22.0-35.0) % Summers % (Auto) 9.4 H (1.0-6.0) % Eos % (Auto) 1.4 L (1.5-5.0) % Baso % (Auto) 0.3 (0.0-3.0) % Lymph # (Auto) 1.9 (1.2-3.4) Summers # (Auto) 0.6 (0.1-0.6) Eos # (Auto) 0.1 (0.0-0.7) Baso # (Auto) 0.02 (0.0-2.0) K/mm3 Absolute Neuts (auto) 3.84 (1.4-6.5) PT 11.8 (9.4-12.5) SECONDS INR 1.06 APTT 31.3 (26.9-38.3) Seconds D-Dimer, Quantitative 753 H (0-243) ng/mlDDU Sodium 131 L (132-148) mmol/L Potassium 6.3 H* D (3.6-5.0) mmol/L Chloride 116 H (98-107) mmol/L Carbon Dioxide 7 L D (21-33) mmol/L Anion Gap 15 (10-20) BUN 49 H (7-21) mg/dL Creatinine 2.9 H (0.7-1.2) mg/dl Est GFR ( Amer) 19 Est GFR (Non-Af Amer) 16 Random Glucose 100 (70-110) mg/dL Calcium 8.6 (8.4-10.5) mg/dL Magnesium 1.9 (1.7-2.2) mg/dL Total Bilirubin 0.2 (0.2-1.3) mg/dL AST 20 (14-36) U/L ALT 22 (7-56) U/L Alkaline Phosphatase 64 (38-126) U/L Lactate Dehydrogenase 412 (333-699) U/L Total Creatine Kinase 59 (35-230) U/L Troponin I < 0.01 D ng/mL NT-Pro-B Natriuret Pep 7190 H (0-450) pg/mL Total Protein 6.7 (5.8-8.3) g/dL Albumin 3.6 (3.0-4.8) g/dL Globulin 3.1 gm/dL Albumin/Globulin Ratio 1.1 (1.1-1.8) Laboratory Results - last 24 hr 04/29/18 04/29/18 04/29/18 16:58 16:58 16:58 WBC 6.5 RBC 3.91 Hgb 8.4 L Hct 27.7 L MCV 70.8 L MCH 21.5 L MCHC 30.3 L RDW 18.0 H Plt Count 252 MPV 9.5 Neut % (Auto) 59.2 Lymph % (Auto) 29.7 Summers % (Auto) 9.4 H Eos % (Auto) 1.4 L Baso % (Auto) 0.3 Lymph # (Auto) 1.9 Summers # (Auto) 0.6 Eos # (Auto) 0.1 Baso # (Auto) 0.02 Absolute Neuts (auto) 3.84 PT 11.8 INR 1.06 APTT 31.3 D-Dimer, Quantitative 753 H Sodium 131 L Potassium 6.3 H* D Chloride 116 H Carbon Dioxide 7 L D Anion Gap 15 BUN 49 H Creatinine 2.9 H Est GFR ( Amer) 19 Est GFR (Non-Af Amer) 16 Random Glucose 100 Calcium 8.6 Magnesium 1.9 Total Bilirubin 0.2 AST 20 ALT 22 Alkaline Phosphatase 64 Lactate Dehydrogenase 412 Total Creatine Kinase 59 Troponin I < 0.01 D NT-Pro-B Natriuret Pep 7190 H Total Protein 6.7 Albumin 3.6 Globulin 3.1 Albumin/Globulin Ratio 1.1 Radiology Impressions: Radiology Impressions Chest X-Ray 04/29/18 16:38 IMPRESSION: No active disease. EKG/Cardiology Studies: Cardiology / EKG Studies 04/29/18 16:36 ELECTROCARDIOGRAM Stat Comment: Reason For Exam: chest pain Fingerstick Blood Sugar Results: 100 Review of Systems - Review of Systems Systems not reviewed;Unavailable: Acuity of Condition - Constitutional Constitutional: Weakness, Malaise - Cardiovascular Cardiovascular: UNREMARKABLE - Respiratory Respiratory: Dyspnea Critical Care Progress Note - Ventilator Checklist Head of Bed 30 Degrees: Yes PUD Prophalyxis: Yes DVT Prophylaxis: Yes - Prophylaxis DVT Prophylaxis DVT: Heparin SQ Assessment/Plan - Assessment and Plan (Free Text) Plan: Acute respiratory insufficiency \ COPD \ Hypoxemia \ UTI \ JORDYN \ Hyperkalemia \ Metabolic acidosis \ ho CAD -hemodynamic monitoring to maintain MAP>65 -continue ASA and plavix -o2 supplementation to maintain Spo2 >90 Pao2>60 -currently comfortable on NC -continue nebs PRN -CXR reviewed and no visible consolidation noted -continue Abx ; ID team eval; and f\u cultures and U\A -f\u Bun\Cr and U\o; hyperkalemia protocol given in ED; f\u repeat K+ level -start bicarb drip -renal US -consider nephrology team eval -PO diet and aspiration precautions -f\u LE duplex -DVT prophylaxis CCM eval time 34min
[2018-04-29] MEDS ORDERED: Albuterol-Ipratrop 3 mg / 0.5 (3 ml) UD IH PRN (18:09)
[2018-04-29] MEDS ORDERED: Vancomycin 1gm in NS 250ml 1 GM/250 ML BAG IVPB STA (18:14)
[2018-04-29 18:25] LABS: URINE BILIRUBIN NEGATIVE (NEGATIVE); URINE BLOOD TRACE-INTACT (NEGATIVE); URINE GLUCOSE (UA) NEGATIVE (NEGATIVE); URINE LEUKOCYTE ESTERASE MODERATE Leu/uL (NEGATIVE); URINE PROTEIN 30 mg/dL (<30 mg/dL); URINE UROBILINOGEN 0.2 E.U./dL (<1 E.U./dL)
[2018-04-29 18:27] LABS: URINE APPEARANCE CLEAR (CLEAR); URINE COLOR YELLOW (YELLOW)
[2018-04-29 18:32] LABS: URINE RBC 0 - 2 /hpf (0-2)
[2018-04-29] MEDS: Cefepime 1gm in NS 100ml 1 GM/100 ML BAG IVPB SCH (18:41)
[2018-04-29] MEDS: Sodium Bicarbonate 8.4% 150 MEQ in Dextrose 5% In Water 1,000 ML IV SCH (20:23)
[2018-04-29 22:45] LABS: CALCIUM 8.3 mg/dL (8.4-10.5)
--- NOTE | 2018-04-29 22:53 | CARD ---
APPROVED REPORT Date of service: 04/29/2018 EKG Measurement Heart [id number] 130P87 [id number] <Conclusion> Normal sinus rhythm with sinus arrhythmia Right bundle branch block Leftward axis Abnormal ECG
--- NOTE | 2018-04-29 22:56 | CARD ---
APPROVED REPORT Date of service: 04/29/2018 EKG Measurement Heart [id number] MA 134P30 [id number] <Conclusion> Normal sinus rhythm Right bundle branch block Low voltage diffusely Abnormal ECG
[2018-04-30] MEDS: Cefepime 1gm in NS 100ml 1 GM/100 ML BAG IVPB SCH ×3 (05:36→18:40)
[2018-04-30 06:05] LABS: HEMOGLOBIN 7.5 g/dL (12.0-16.0); MEAN CELL VOLUME 68.9 fl (80.0-105.0); MEAN CORPUSCULAR HEMOGLOBIN 21.4 pg (25.0-35.0); MEAN PLATELET VOLUME 9.6 fl (7.0-11.0); RBC 3.51 10^6/uL (3.5-6.1); RED CELL DISTRIBUTION WIDTH 17.7 % (11.5-14.5); WHITE BLOOD COUNT 4.1 10^3/uL (4.5-11.0)
[2018-04-30] MEDS: Sodium Bicarbonate 8.4% 150 MEQ in Dextrose 5% In Water 1,000 ML IV SCH (07:52)
--- NOTE | 2018-04-30 12:18 | US ---
Date of service: 04/29/2018 HISTORY: enid COMPARISON: None. TECHNIQUE: Sonographic evaluation of the abdomen. FINDINGS: LIVER: Measures 13.49 x 8.51 cm. Increased echogenicity of the liver parenchyma. No mass. No intrahepatic bile duct dilatation. GALLBLADDER: Removed COMMON BILE DUCT: Measures 10 mm. No stones. No dilatation. PANCREAS: Unremarkable as visualized. No mass. No ductal dilatation. RIGHT KIDNEY: Measures 10.7 x 4.43 x 5.72cm. Normal echogenicity. No calculus, mass, or hydronephrosis. LEFT KIDNEY: Measures 9.81 x 4.81 x 5.06cm. Normal echogenicity. No calculus, mass, or hydronephrosis. SPLEEN: Normal in size and contour. No mass. AORTA: No aneurysmal dilatation. IVC: Unremarkable. OTHER FINDINGS: There is a small amount of ascites The report concurs with the preliminary [facility] report IMPRESSION: Small amount of ascites. Fatty infiltration of the liver. Previous cholecystectomy.
[2018-04-30 12:20] LABS: ARTERIAL BLOOD GAS HCO3 12.3 mmol/L (21-28); ARTERIAL BLOOD GAS O2 CAPACITY 10.2 mL/dl (16-24); ARTERIAL BLOOD GAS O2 CONTENT 10.1 ML/dl (15-23); ARTERIAL BLOOD GAS O2 SAT 98.7 % (95-98); ARTERIAL BLOOD GAS PCO2 25 mm/Hg (35-45); ARTERIAL BLOOD GAS TCO2 13.1 mmol.L (22-28)
--- NOTE | 2018-04-30 12:33 | PN ---
DATE: 04/30/2018 CONSTRUCTION MGR NOTE SUBJECTIVE: The patient is resting in bed with O2 via nasal cannula. She is 1:1 at this time. The patient does respond to the spoken word, but seems to be confused at times. No active coughing or congestion. No respiratory distress. No fever, chills, nausea or vomiting. OBJECTIVE: VITAL SIGNS: Her temperature is 98.4, pulse is 89, respirations of 19 and BP is 106/49. SKIN: Warm and dry. HEENT: Head is atraumatic, normocephalic. Eyes reactive to light. Ears, nose and throat seem to be within normal limits. NECK: Supple. No JVD. No thyroid enlargement. No lymph nodes. HEART: Has regular rate and rhythm. Normal S1 and S2. LUNGS: Reveal some mild rhonchi at the bases. ABDOMEN: Soft. Decreased bowel sounds. GENITALIA AND RECTAL: Deferred. MUSCULOSKELETAL: No joint deformities. EXTREMITIES: Reveal positive lower extremity edema. NEUROLOGIC: The patient is confused, but moving all extremities. LABORATORY DATA: As far as her laboratories are concerned, her white count is 4.1, hemoglobin is 7.5, hematocrit 42.2 with platelets of 241,000. As far as her chemistries are concerned sodium is 136, potassium 4.9, chloride 118, CO2 of 11 with BUN of 48, creatinine of 2.5 and a glucose of 104. IMPRESSION: As far as my impression, this patient has renal failure with urinary tract infection and severe metabolic acidosis. The patient has anemia with acute renal insufficiency and history of chronic obstructive pulmonary disease, coronary artery disease and initially presented with respiratory insufficiency and anemia. PLAN: As far as our plan, we will continue with aggressive pulmonary toilet, continue with O2 via nasal cannula. The patient is getting aspirin and Ativan as well as subcu heparin. She is on cefepime as well as Plavix and IV fluids. We will continue to treat aggressively and watch closely along with the other consultants and the primary care doctor. Seth Nieves MD
--- NOTE | 2018-04-30 20:19 | HP ---
HISTORY OF PRESENT ILLNESS: The patient is a 77-year-old woman with a past medical history of COPD and iron- deficiency anemia who presented for evaluation of a several day history of lethargy, malaise, chest tightness and wheeze. The patient was initially seen in her PMD's office approximately 1 week ago for evaluation of UTI. She was initially placed on Macrobid with minimal relief of symptoms. A repeat urinalysis in the office was consistent with persistent UTI and she was placed on Ciprofloxacin 500 mg p.o. b.i.d. The patient was taking the prescription as directed but reported persistent symptoms. Two days prior to presentation to the ED she also developed URI-type symptoms with chest tightness, cough and wheeze. Given her failure to respond to outpatient antimicrobials, she opted for ED evaluation. In the ED she was afebrile and hemodynamically stable, albeit somnolent and slightly confused. Laboratory studies demonstrated a potassium of 6.3, a BUN of 49 and a Creatinine of 2.9. She was subsequently admitted to the ICU for continued management of UTI with sepsis, JORDYN and metabolic acidosis. PAST MEDICAL HISTORY: As per HPI, also hypertension, CAD s/p PCI with stent placement and anxiety disorder. PAST SURGICAL HISTORY: Appendectomy, cholecystectomy and hysterectomy. ALLERGIES: Sulfas. MEDICATIONS: Aspirin 81 mg p.o. daily, Plavix 75 mg p.o. daily Feosol 324 mg p.o. t.i.d., Lisinopril 2.5 mg p.o. daily, Toprol XL 25 mg p.o. daily, Protonix 40 mg p.o. daily, ProAir HFA 2 puffs q. 4-6 hours p.r.n. dyspnea/wheeze and Dulera 200 mcg 2 puffs b.i.d. FAMILY HISTORY: Noncontributory. SOCIAL HISTORY: She denies any toxic habits. REVIEW OF SYSTEMS: A 12-point review of systems is negative except as per HPI. PHYSICAL EXAMINATION: VITAL SIGNS: Temperature 97.7, pulse 78, blood pressure 106/51, respiratory rate 18, and oxygen saturation 100% on 2L NC. GENERAL: Frail, elderly woman lying in bed in no apparent distress. HEENT: PERRL, EOMI. No scleral icterus. Conjunctival pallor is noted. NECK: No JVD. LUNGS: Clear to auscultation. CARDIOVASCULAR: Regular rate and rhythm. Normal S1 and S2. ABDOMEN: Normoactive bowel sounds. Soft, nontender, nondistended. No flank tenderness. EXTREMITIES: No edema. NEUROLOGIC: Awake, alert and oriented to person. Moving all extremities. Answering questions appropriately. LABORATORY DATA: WBC 4.1, hemoglobin 7.5, hematocrit 24, platelets 241, and MCV 69. Sodium 136, potassium 4.9, chloride 118, bicarb 11, BUN 48, creatinine 2.5, and glucose 104. ASSESSMENT: The patient is a 77-year-old woman with multiple medical comorbidities who was admitted to the ICU with UTI with sepsis, metabolic acidosis and JORDYN of unclear etiology. PLAN: 1. UTI with sepsis. The patient has been cultured and started on Cefepime 1 g IV q. [address] Arguello of Infectious Disease has been consulted for further evaluation and recommendations. 2. JORDYN, consider secondary to prerenal azotemia vs underlying UTI, improving. Continue with IV fluid hydration. Nephrology evaluation with Dr. Breaux is pending. Continue to monitor strict I&O's. renally dose medications and avoid nephrotoxins. 3. Metabolic acidosis. The patient has been started on a bicarb infusion. As above, evaluation with Dr. Breaux is pending. 4. Iron-deficiency anemia (baseline Hb 7-8). No evidence for active bleed. Continue Feosol 324 mg p.o. t.i.d. Continue to monitor CBC and transfuse as needed. 5. CAD s/p PCI with stent placement. Continue Aspirin 81 mg p.o. daily, Plavix 75 mg p.o. daily. The patient is on statin therapy due to history of myopathy. Toprol XL on hold given the patient's tenuous hemodynamics. 6. COPD. Continue with supplemental oxygen and bronchodilators as needed. 7. Hypertension. As above, Toprol XL remains on hold given tenuous hemodynamics in the setting of UTI with sepsis. 8. Anxiety disorder. Continue with Ativan 1 mg IV q. 4 hours p.r.n. 9. Prophylaxis. GI prophylaxis not indicated as the patient is eating. Continue with heparin for DVT prophylaxis. CODE STATUS: FULL CODE. Lino Jane MD [facility] # [id number] [place]
[2018-04-30 20:48] LABS: IRON 58 ug/dL (45-180)
[2018-04-30 20:57] LABS: % IRON SATURATION 26 % (20-55); TOTAL IRON BINDING CAPACITY 218 ug/dL (265-497)
--- NOTE | 2018-04-30 22:19 | CON ---
DATE: 04/30/2018 LOCATION: The patient is in CCU, bed 7. REASON FOR CONSULTATION: Coronary artery disease, shortness of breath, renal failure, anemia, COPD, history of multiple stents infection, hypertension, hyperlipidemia, peripheral vasculare disease, angioplasties and peripheral vascular disease also. HISTORY OF PRESENT ILLNESS: Patient is a 77-year-old female, who is known case of coronary artery disease, multiple stents, also peripheral vascular disease, has angioplasties on the legs, known case of COPD, diabetes mellitus, hypertension, hyperlipidemia. Also, treated for anemia in the past and she follows with Dr. Garcia for infusion. Patient admitted with the shortness of breath and at home patient took her albuterol inhaler and had improvement in her symptom and then she came to emergency room where she was found to have high BUN and creatinine and anemia, so patient was admitted. Patient denies any chest pain or palpitation. PAST MEDICAL HISTORY: As mentioned before, patient has coronary artery disease, multiple stents, peripheral vascular disease for which she had angioplasties, COPD, diabetes mellitus, hypertension and hyperlipidemia. She was admitted in 05/2017 with altered mental status and that time she was also anemic and received blood transfusion. Also, at that time, she had renal dysfunction and metabolic encephalopathy. Patient also has history of appendectomy, cholecystectomy, colon resection for diverticulitis 10 years ago. She had a colostomy which only six months later was reversed, so that colostomy reversal was 9-1/2 years ago. PREVIOUS CARDIAC WORKUP: Patient had echocardiogram on 06/08/2017, it shows left ventricular size and function was normal, ejection fraction 55%. Mild mitral regurg, trace tricuspid regurg, RVSP 31 mmHg. Patient had also stress test 06/08/2016, which was normal with ejection fraction of 74%. PERSONAL HISTORY: No smoking. No drinking. HOME MEDICATIONS: Patient medication at home was albuterol 1 puff p.r.n., aspirin 81 mg daily, Plavix 75 mg daily, lisinopril 2.5 mg daily, metoprolol succinate, Toprol XL 25 mg p.o. daily, Synthroid 1 tablet p.o. daily, Ambien 2.5 mg p.o. p.r.n. at bedtime and Questran 4 mg p.o. t.i.d. REVIEW OF SYSTEMS: All the systems were reviewed, positive as mentioned in the history. PHYSICAL EXAMINATION: VITAL SIGNS: Blood pressure 127/68, respirations 18, pulse 100 per minute, and temperature 98.6. HEENT: Head is normocephalic. Eyes, pupils normal. Conjunctivae slightly pale. NECK: JVP low. Carotids equal. THORAX: AP diameter normal. LUNGS: Clear. CARDIOVASCULAR: S1 and S2. ABDOMEN: Soft and nontender. No organomegaly. EXTREMITIES: No clubbing. No cyanosis. LABORATORY DATA: WBC 4.1, hemoglobin 7.5, hematocrit 24.2, and platelets 241. Sodium 136, potassium 4.9, BUN 48, and creatinine 2.5. Patient at the time of admission, potassium was 6.3, then it went down to 5.7 and today it is 4.9. Calcium 8.0, phosphorus 4.9, magnesium 1.8, troponin negative. AST and ALT normal. NT-pro B natriuretic peptide 7190. Chest x-ray is clear. EKG shows normal sinus rhythm with sinus arrhythmia, right bundle branch block, low voltage. DIAGNOSES: Renal failure, patient while I was examining was confused. She has altered mental status probably due to metabolic encephalopathy, coronary artery disease, history of multiple stent insertion, peripheral vascular disease, history of angioplasty, chronic obstructive pulmonary disease, diabetes mellitus, hypertension, hyperlipidemia, hyperkalemia which has been improved, severe anemia, urinary tract infection and episodes of altered mental status. PLAN: Patient is getting aspirin 81 mg daily. Patient getting IV fluid therapy, which I agree. Ferrous sulphate 324 mg t.i.d., heparin 5000 units subcu every 8 hours, insulin as ordered, cefepime 1 g IV every [address] Garcia has been requested, the supply chain director and she will decide about the blood transfusion. On previous admission, patient received blood transfusion in 05/2017, at that time also patient had altered mental status and BUN was elevated, so today this morning patient was confused, now apparently according to nurse she has improved. Patient probably will benefit from blood transfusion. We will follow. Repeat CBC and repeat labs. As far as BNP is concern, it is elevated, but there is no clinical evidence of CHF, so we will continue IV fluid and we will monitor closely with you and we will follow with you. Samuel Begum MD [facility] # [id number]
--- NOTE | 2018-05-01 03:09 | CON ---
DATE OF CONSULTATION: 04/30/2018 The patient is seen earlier today in room 129, bed 7. CHIEF COMPLAINT: Shortness of breath initially x1 day. HISTORY OF PRESENT ILLNESS: This is a 77-year-old female with past medical history significant for peripheral vascular disease, coronary artery disease, partial thyroidectomy, who is admitted through the emergency room yesterday by Dr. Angel Linda because of shortness of breath, and the patient stated that she was given Cipro for urinary tract infection. At this time, there are no fevers or chills, and shortness of breath is improved. No chest pain or abdominal pain. No diarrhea or constipation. No headaches. At this point, there is no dysuria or frequency. REVIEW OF SYSTEMS: Twelve-point review systems is performed. PAST MEDICAL HISTORY: Significant for coronary artery disease, peripheral vascular disease, urinary tract infection, hypertension, anemia, diverticulitis, and chronic obstructive lung disease. PAST SURGICAL HISTORY: Significant for cardiac catheterization, appendectomy, cholecystectomy, partial thyroidectomy, colostomy, hysterectomy. ALLERGIES: THE PATIENT IS ALLERGIC TO SULFA, TYPE OF ALLERGY IS QUESTIONABLE RASH, AND TRIMETHOPRIM, QUESTIONABLE RASH. PHYSICAL EXAMINATION: GENERAL: The patient is in bed, in no acute distress, nontoxic. VITAL SIGNS: Temperature of 98; heart rate of 110; respiratory rate of 21, it was up to 36; and saturating at 89% with a blood pressure of 127/60. HEENT: Examination of HEENT is unremarkable. NECK: Supple. LUNGS: Have decreased breath sounds. HEART: Normal S1, S2. ABDOMEN: Soft, nontender. No rebound. No guarding. No masses. LABORATORY DATA: Laboratory examination reveals a white count of 6.5, hemoglobin of 8, platelets of 252. Coagulation is noted. BUN of 49, creatinine of 2.9, and BNP 7190. The patient's last creatinine in May 2017 was 1.1. Urinalysis reveals moderate leukocyte esterase, 2 to 5 wbc's. Microbiology reveals the patient had strep in the urine in 2016 and corynebacterium in the urine in 2014. The blood cultures have been negative. She has also had C. diff negative in the past. Dr. Seth Nieves's note is reviewed from today. The patient also had an abdominal ultrasound, which is reviewed. Chest x-ray, no active disease. Dr. Jesús Shanks's progress note from yesterday is reviewed. The patient did have an echo on 06/08/2017, which showed an ejection fraction of 55%. ASSESSMENT AND PLAN: This is a 77-year-old female with peripheral vascular disease, coronary artery disease, urinary tract infection, hypertension, anemia, diverticulitis, now with systemic inflammatory response syndrome with metabolic acidosis and acute kidney injury, must rule out sepsis from urine as the source. We will order blood cultures, check on the urine cultures. Currently, the patient is on cefepime 1 g every 8 hours. We will adjust that for renal failure to 1 mg every 24 hours, pending blood and urine culture results. The patient was also given a dose of vancomycin, and we will make further recommendations. Tommy Arguello MD
[2018-05-01 05:59] LABS: BASO # 0.02 K/mm3 (0.0-2.0); BASO % 0.4 % (0.0-3.0); EOS # 0.1 (0.0-0.7); EOS % 1.6 % (1.5-5.0); HEMOGLOBIN 7.1 g/dL (12.0-16.0); LYMPH # 1.5 (1.2-3.4); LYMPH % 30.2 % (22.0-35.0); MEAN CELL VOLUME 66.4 fl (80.0-105.0); MEAN CORPUSCULAR HEMOGLOBIN 21.3 pg (25.0-35.0); MEAN CORPUSCULAR HGB CONC 32.1 g/dl (31.0-37.0); MEAN PLATELET VOLUME 9.5 fl (7.0-11.0); MONO # 0.8 (0.1-0.6); MONO % 15.8 % (1.0-6.0); RBC 3.33 10^6/uL (3.5-6.1); RED CELL DISTRIBUTION WIDTH 16.9 % (11.5-14.5); WHITE BLOOD COUNT 5.1 10^3/uL (4.5-11.0)
[2018-05-01 06:03] LABS: CALCIUM 7.6 mg/dL (8.4-10.5)
--- NOTE | 2018-05-01 06:17 | CON ---
DATE OF CONSULTATION: 04/30/2018 REASON FOR CONSULTATION: Hyperkalemia, acute kidney injury, shortness of breath. HISTORY OF PRESENTING ILLNESS: A 77-year-old lady was brought to the emergency room yesterday because of shortness of breath. As per the ER note, the patient was taking Cipro for UTI for 3 days prior to presentation. She was using her inhalers for COPD. No history of any chest pain or palpitations. No history of any fever or chills. No history of any respiratory distress. In the emergency room, she was found to be hypotensive. Her blood pressure was 104/54. She was also found to be lethargic. She was found to be severely anemic, hemoglobin of 8.4, potassium was 6.3, BUN 49, creatinine 2.9. The patient was admitted to the ICU. PAST MEDICAL/SURGICAL HISTORY: UTI, COPD. FAMILY HISTORY: Noncontributory. SOCIAL HISTORY: Ex-smoker, quit 30 years ago, no alcohol use, no IV drug abuse. MEDICATIONS AT HOME: Amlodipine, Toprol XL, lisinopril/hydrochlorothiazide?, Plavix 75, aspirin, Cipro. ALLERGIES: BACTRIM. REVIEW OF SYSTEMS: Currently, the patient is lying in bed in the ICU, not really cooperate with systems review. She reports that she keeps forgetting stuff. PHYSICAL EXAMINATION: GENERAL: Elderly, thinly built lady lying in bed in the ICU. VITAL SIGNS: Blood pressure 127/68, heart rate 106, respiratory rate 21-28, temperature 98.6. HEENT: Normocephalic, atraumatic, positive pallor. NECK: Supple, no JVD. LUNGS: Bilateral equal air entry, bilateral equal air expansion, scattered rhonchi. CARDIAC: S1 and S2, regular rate and rhythm, no murmur, no rub. ABDOMEN: Soft, nondistended, nontender, bowel sounds present. EXTREMITIES: No lower extremity edema. INTAKE AND OUTPUT: 1400/2000 LABORATORY DATA: WBC 4.1, hemoglobin 7.5, hematocrit 24, platelets 241,000. Sodium 136, potassium 4.9, chloride 118, CO2 of 11, BUN 48, creatinine 2.5, glucose 104, calcium 8.0, phosphorus 4.9 magnesium 1.8. Urinalysis: Yellow clear, pH 6.0, specific 1.020, protein 30, blood trace intact, leukocyte esterase moderate, urine sodium 57, urine creatinine 45. Abdominal ultrasound: Small amount of ascites, fatty infiltration of the liver, previous cholecystectomy. Kidneys: Right kidney 10.7, left kidney 9.8 cm, no hydronephrosis. CURRENT MEDICATIONS: Aspirin, Ativan, Feosol, cefepime 1 g daily, Plavix 75, sodium bicarbonate 3 ampules in D5 at 150. ASSESSMENT: 1. Acute kidney injury superimposed on chronic kidney disease stage 2, creatinine was 1.1 in 05/2017. 2. Hyperkalemia. 3. Severe non-anion gap metabolic acidosis. 4. Mild respiratory acidosis. 5. Severe anemia. 6. History of hypertension. The patient was on metoprolol 25, amlodipine, lisinopril/hydrochlorothiazide? The patient does not remember. PLAN: 1. Change IV fluids to half-normal saline with 75 mEq of bicarb. 2. Check urine sodium, urine potassium, urine chloride to calculate urine anion gap. 3. Monitor urine output closely. 4. Check stool occult x3. 5. Check iron stores. 5. Monitor hemoglobin and hematocrit. 6. Avoid nephrotoxins. 7. Check aldosterone level. Case discussed at length with the ICU resident, case discussed with ICU nursing staff. More than 35 minutes spent during the care of this critically ill patient. Destiny Breaux MD
--- NOTE | 2018-05-01 12:34 | PN ---
SUBJECTIVE: The patient was seen and examined at bedside in the ICU. No acute events overnight. She remains afebrile, hemodynamically stable and is demonstrating gradual clinical improvement. PHYSICAL EXAMINATION: VITAL SIGNS: Temperature 99, pulse 88, blood pressure 131/59, respiratory rate 22, oxygen saturation 98% on 2L NC. GENERAL: Frail elderly woman, lying in bed in no apparent distress. HEENT: PERRL, EOMI. No scleral icterus. Conjunctival pallor is noted. NECK: No JVD. LUNGS: Decreased breath sounds at bases. CARDIOVASCULAR: Regular rate and rhythm. Normal S1, S2. ABDOMEN: Normoactive bowel sounds, soft, nontender, nondistended. EXTREMITIES: No edema. NEUROLOGIC: Awake, alert and oriented to person and place. Moving all extremities. LABORATORY DATA: WBC 5.1 with 52% neutrophils, hemoglobin 7.1, hematocrit 22, platelets 240, MCV 66. Sodium 139, potassium 3.9, chloride 111, bicarb 23, BUN 44, creatinine 2, glucose 89. Blood culture pending. Urine culture with no growth to date. ASSESSMENT: The patient is a 77-year-old woman with multiple medical comorbidities who was admitted to ICU with UTI with sepsis, metabolic acidosis and JORDYN. PLAN: 1. UTI with sepsis. The patient has been cultured and remains on Cefepime 1 g IV daily. Input from Dr. Arguello noted and appreciated. 2. JORDYN, consider secondary to prerenal azotemia vs UTI, improving. Input from Dr. Breaux noted. Continue to monitor strict I&O's, renally dose medications and avoid nephrotoxins. 3. Metabolic acidosis, resolved. As above, input from Dr. Breaux noted. 4. Iron-deficiency anemia (baseline Hb 7-8). No evidence for active bleed. Monitor CBC and transfuse as needed. Evaluation with Dr. Garcia is pending. 5. CAD s/p PCI with stent placement. Continue Aspirin 81 mg p.o. daily and Plavix 75 mg p.o. daily. The patient is off statin therapy due myopathy. Toprol XL on hold given low blood pressure. 6. COPD. Continue supplemental oxygen and bronchodilators as needed. 7. Hypertension. As above, Toprol XL remains on hold given borderline low blood pressure. 8. Anxiety disorder. Continue Ativan 1 mg IV q. 4 hours p.r.n. 9. Prophylaxis. GI prophylaxis not indicated as the patient is eating. Continue with Heparin for DVT prophylaxis. CODE STATUS: Full code. Lino Jane MD MTDD
--- NOTE | 2018-05-01 12:47 | PN ---
DATE: 05/01/2018 SUBJECTIVE: The patient is resting in bed with O2 via nasal cannula. The patient continues to have some altered mental status. The patient does respond to the spoken word. At this time, hemodynamically stable. Has had consults from Renal as well as Cardiac and Infectious Disease. PHYSICAL EXAMINATION: VITAL SIGNS: Note that her temperature is 99, her pulse is 99, respirations of 26, and BP is 131/59. SKIN: Warm and dry. HEENT: Head atraumatic, normocephalic. Eyes reactive to light. Ear, nose, and throat seemed to be within normal limits. NECK: Supple. No JVD. No thyroid enlargement, no lymph nodes. HEART: Has regular rate and rhythm. Normal S1, S2. LUNGS: Reveal decreased breath sounds at the bases. ABDOMEN: Soft. Decreased bowel sounds and no organomegaly noted. GENITALIA: Deferred. RECTAL: Deferred. MUSCULOSKELETAL: No joint deformities. EXTREMITIES: Reveal positive lower extremity edema. NEUROLOGICALLY: The patient is awake and moving all extremities. LABORATORY DATA: The patient has a white count of 5.1, hemoglobin of 7.1, hematocrit 22.1 with platelets of 240,000. Sodium is 139, potassium 3.9, chloride 111, CO2 of 23 with a BUN of 44, creatinine of 2.0 and a glucose of 89. IMPRESSION: The patient has renal failure with urinary tract infection and possible sepsis associated metabolic acidosis. She has anemia with history of chronic obstructive pulmonary disease, coronary artery disease, peripheral vascular disease and respiratory insufficiency. PLAN: We will continue with pulmonary toilet, continue with O2 support via nasal cannula. The patient is on aspirin as well as Ativan and subcu heparin. He is on cefepime and vancomycin and we will continue to follow with the other consultants and the primary care doctor. Seth Nieves MD
--- NOTE | 2018-05-01 15:50 | CP.PCM.PN ---
Subjective - Date & Time of Evaluation Date of Evaluation: 05/01/18 Time of Evaluation: 09:00 - Subjective Subjective: At times agitated but not in distress, no fevers. Objective - Vital Signs/Intake and Output Vital Signs (last 24 hours): Temp Pulse Resp BP Pulse Ox 99 F 96 H 23 147/65 93 L 05/01/18 05:10 05/01/18 14:00 05/01/18 14:00 05/01/18 14:00 05/01/18 14:00 Intake and Output: 05/01/18 05/01/18 06:59 18:59 Intake Total 1600 Output Total 1100 Balance 500 - Medications Medications: Current Medications Albuterol/Ipratropium (Duoneb 3 Mg/0.5 Mg (3 Ml) Ud) 3 ml IH Q2H PRN PRN Reason: Shortness of Breath Aspirin (Aspirin Chewable) 81 mg PO DAILY [facility] Last Admin: 05/01/18 10:40 Dose: 81 mg Clopidogrel Bisulfate (Plavix) 75 mg PO DAILY [facility] Last Admin: 05/01/18 10:40 Dose: 75 mg Ferrous Sulfate (Feosol) 324 mg PO TID LUANA Last Admin: 05/01/18 14:06 Dose: 324 mg Heparin Sodium (Porcine) (Heparin) 5,000 units SC Q8H LUANA; Protocol Last Admin: 05/01/18 10:40 Dose: 5,000 units Cefepime HCl (Maxipime 1gm) 1 gm in 100 mls @ 100 mls/hr IVPB Q24H LUANA; Protoc ol Stop: 05/05/18 17:31 Last Admin: 04/30/18 18:40 Dose: 100 mls/hr Sodium Bicarbonate 75 meq/ (Sodium Chloride) 1,075 mls @ 75 mls/hr IV .[id number] LUANA Lorazepam (Ativan) 1 mg IVP Q4H PRN; Protocol PRN Reason: Anxiety Last Admin: 05/01/18 03:00 Dose: 1 mg - Labs Labs: 05/01/18 05:00 05/01/18 05:00 PT 11.8 SECONDS (9.4-12.5) 04/29/18 16:58 INR 1.06 04/29/18 16:58 APTT 31.3 Seconds (26.9-38.3) 04/29/18 16:58 - Constitutional Appears: Chronically Ill - Head Exam Head Exam: NORMAL INSPECTION - Respiratory Exam Respiratory Exam: Decreased Breath Sounds - Cardiovascular Exam Cardiovascular Exam: +S1, +S2 - GI/Abdominal Exam GI & Abdominal Exam: Soft. absent: Tenderness Assessment and Plan - Assessment and Plan (Free Text) Plan: Assessment SIRS with acute renal failure and metabolic acidosis, R/O sepsis from UTI (patient was on Ciprofloxacin as an outpatient) CAD PVD history of UTI HTN chronic anemia history of diverticulitis COPD S/P appendectomy S/P partial thyroidectomy S/P colostomy S/P hysterectomy Plan continue Cefepime day 2 - urine cx are negative but patient was on Cipro as an outpatient prior to the urine cx will continue to monitor clinically
--- NOTE | 2018-05-01 16:34 | RAD ---
Date of service: 05/01/2018 HISTORY: SOB COMPARISON: 04/29/2018 FINDINGS: LUNGS: No active pulmonary disease. PLEURA: No significant pleural effusion identified, no pneumothorax apparent. CARDIOVASCULAR: Aortic calcification Normal cardiac size. No pulmonary vascular congestion. OSSEOUS STRUCTURES: No significant abnormalities. VISUALIZED UPPER ABDOMEN: Normal. OTHER FINDINGS: None. IMPRESSION: No active disease.
[2018-05-01] MEDS: Albuterol-Ipratrop 3 mg / 0.5 (3 ml) UD IH PRN (16:56)
--- NOTE | 2018-05-01 19:20 | PN ---
DATE: 05/01/2018 LOCATION: The patient in CCU 129, bed 7. REASON FOR CONSULTATION AND FOLLOWUP: Coronary artery disease, shortness of breath, renal failure, anemia, COPD, history of multiple stents insertion, hypertension, hyperlipidemia, urinary tract infection, peripheral vascular disease with angioplasty also for peripheral vascular disease, and sepsis. The patient also had episode of altered mental status for a short time yesterday. SUBJECTIVE: The patient is known case of coronary artery disease with multiple stents, also peripheral vascular disease, has had angioplasties on the legs as well for peripheral vascular disease, known case of COPD, diabetes mellitus, hypertension, hyperlipidemia, also has been treated for anemia by Dr. Garcia, director medical affairs. The patient is admitted with shortness of breath at home and took her albuterol inhaler and had some improvement, and then she came to the emergency room where she was found to be in renal failure and anemia, also urinary tract infection with possible sepsis. The patient is in intensive care unit. OBJECTIVE: GENERAL: The patient is lying flat in bed without any chest pain, shortness of breath or palpitation. VITAL SIGNS: Blood pressure is 131/59, respirations 27, pulse is 92, and temperature 99. HEENT: Head is normocephalic. Pupils are normal. Conjunctivae are pale. NECK: JVP low. Carotids equal. THORAX: AP diameter normal. LUNGS: No rales. CARDIOVASCULAR: S1 and S2. ABDOMEN: Soft and nontender. No organomegaly. Bowel sounds normal. EXTREMITIES: No clubbing. No cyanosis. LABORATORY DATA: WBC 5.1, hemoglobin 7.1, hematocrit 22.1, and platelets 240. Yesterday's hemoglobin was 7.5 and hematocrit was 24.2. Sodium 139, potassium 3.9, BUN 44, and creatinine 2. BUN yesterday was 48 and creatinine was 2.5. The patient had an echo on 06/08/2017 and also had stress test on 06/08/2016 and the findings were described in our consultation of 04/30/2018. DIAGNOSES: Renal failure, the patient yesterday had episode of altered mental status due to metabolic encephalopathy, coronary artery disease, history of multiple stent insertions, peripheral vascular disease, history of angioplasty, chronic obstructive pulmonary disease, diabetes mellitus, hypertension, hyperlipidemia, hyperkalemia, which has improved, severe anemia, urinary tract infection, and sepsis. PLAN: The patient's hemoglobin and hematocrit have decreased as compared to on admission, probably due to hydration which is making her BUN and creatinine improving. So I think from a cardiac point of view, the patient will benefit with transfusion at this moment and rest of the therapy management will be approved by Dr. Garcia, director medical affairs. I spoke with Dr. Lino Jane, he agreed and I am going to order one unit of blood transfusion today. We will repeat SMA-7 and CBC in the morning. The patient will also continue on IV fluid, ferrous sulfate 324 mg p.o. t.i.d., aspirin 81 mg daily, cefepime 1 g IV every 24 hours, Plavix 75 mg daily. We will follow with you. Yesterday's total intake was 1650 and output 1100. Samuel Begum MD
[2018-05-01] MEDS: Cefepime 1gm in NS 100ml 1 GM/100 ML BAG IVPB SCH (19:51)
[2018-05-02 07:15] LABS: BASO # 0.01 K/mm3 (0.0-2.0); BASO % 0.2 % (0.0-3.0); EOS % 0.8 % (1.5-5.0); LYMPH # 1.1 (1.2-3.4); LYMPH % 20.5 % (22.0-35.0); MEAN CORPUSCULAR HGB CONC 31.3 g/dl (31.0-37.0); MEAN PLATELET VOLUME 10.2 fl (7.0-11.0); MONO # 0.8 (0.1-0.6); MONO % 16.1 % (1.0-6.0); RED CELL DISTRIBUTION WIDTH 18.6 % (11.5-14.5); WHITE BLOOD COUNT 5.2 10^3/uL (4.5-11.0)
[2018-05-02 07:25] LABS: HEMOGLOBIN 8.8 g/dL (12.0-16.0); MEAN CELL VOLUME 70.3 fl (80.0-105.0)
[2018-05-02] MEDS: Albuterol-Ipratrop 3 mg / 0.5 (3 ml) UD IH PRN ×2 (07:32→14:24)
[2018-05-02] MEDS ORDERED: Darbepoetin Alfa 100 mcg/ml Inj SC ONE (08:06)
[2018-05-02 08:16] LABS: CALCIUM 7.5 mg/dL (8.4-10.5)
[2018-05-02] MEDS ORDERED: Potassium Chloride 20 mEq ER Tab PO STA (08:16)
[2018-05-02] MEDS ORDERED: Magnesium Sulfate 2 gm/50 ml 2 GM/50 ML BAG IVPB ONE (08:18)
--- NOTE | 2018-05-02 09:21 | CON ---
DATE: 05/02/2018 CONSULT REQUESTED BY: Lino Jane MD REASON FOR CONSULTATION: Anemia related to chronic kidney disease. HISTORY OF PRESENT ILLNESS: Ms. Castle is a 77-year-old female, well known to me from office. She has chronic kidney disease, currently getting Procrit weeks in office 40,000 units. She was admitted with UTI, sepsis, and acute kidney injury, also she had metabolic acidosis. She failed oral antibiotics as an outpatient. Blood culture and urine cultures have negative so far. She also had a urine culture done in office on 04/26/2018, which was negative. She also had URI symptoms. She received one unit of blood transfusion during this hospitalization; hemoglobin decline to 7.5 currently 8.8, creatinine was 2.9 on admission has improve to 2 today. PAST MEDICAL HISTORY: Hypertension; CAD, status post stent placement; anxiety. PAST SURGICAL HISTORY: Appendectomy, cholecystectomy, and hysterectomy. ALLERGIES: SULFA. CURRENT MEDICATIONS: Aspirin, Plavix 75 mg p.o. daily, ferrous sulfate, lisinopril 25 mg daily, Toprol-XL 25 mg, Protonix 40 mg daily, bronchodilators. FAMILY HISTORY: Noncontributory. PERSONAL HISTORY: Nonsmoker. No history of alcohol abuse. REVIEW OF SYSTEMS: As per HPI. Rest of 12-point review of systems reviewed and negative. PHYSICAL EXAMINATION: GENERAL: Comfortable in bed, in no acute distress. VITAL SIGNS: Temperature 97.7, heart rate 70 per minute, blood pressure 160/70, respiratory rate 18 per minute, oxygen saturation 100% on oxygen by nasal cannula. HEENT: Pallor positive. NECK: No lymphadenopathy. CHEST: Air entry present and equal bilaterally. No added sounds. CARDIOVASCULAR: S1 and S2 are normal. No murmur. No gallop. ABDOMEN: Soft and nontender. No hepatosplenomegaly. EXTREMITIES: No edema. NEUROLOGIC: Awake, alert, and oriented x3. No focal sensory or motor deficit. LABORATORY DATA: Sodium 139, potassium 3.9, creatinine 2, calcium 7.6, iron 58, iron saturation 28. White count 5.2, hemoglobin 8.8, hematocrit 28.1, platelet count 246. Blood culture and urine culture are negative. ASSESSMENT AND PLAN: 1. Urinary tract infection with sepsis, currently on Cefepime. Dr. Jos krause. 2. Severe anemia. Related to chronic kidney disease. Her iron studies has been normal in the office. She is normalized during this hospitalization. We will give Aranesp 100 mg subcutaneously today. She is on Procrit 40,000 units twice a week as outpatient maintaining normal hemoglobin with that induced, status post one unit of blood transfusion. We recommended discontinuing oral iodine that can give gastrointestinal symptoms with normal iron, we will hold for ferrous sulfate now. 3. Coronary artery disease, stable. 4. Chronic obstructive pulmonary disease. Currently on bronchodilators and IV antibiotics. 5. Gastrointestinal prophylaxis with Protonix. Deep venous thrombosis prophylaxis with heparin 5000 units every 8 hours. We will decrease the dose to 5000 every [address] Jane for allowing us to participate in Ms. Castle's care. Anupama Garcia MD
--- NOTE | 2018-05-02 11:46 | PN ---
SUBJECTIVE: The patient was seen and examined at bedside in the ICU. No acute events overnight. She remains afebrile and hemodynamically stable. Overnight she was noted to have moments delirium but was reoriented. This morning she is somnolent and confused but easily redirectable and otherwise offers no complaints. The patient is also s/p transfusion of 1 unit of PRBC with no complications. OBJECTIVE: VITAL SIGNS: Temperature 97.4, pulse 87, blood pressure 136/72, respiratory rate 20 and oxygen saturation 97% on room air. GENERAL: Elderly woman lying in bed in no apparent distress. HEENT: PERRL, EOMI. No scleral icterus. Conjunctival pallor is noted. NECK: No JVD. LUNGS: Decreased breath sounds at the bases. CARDIOVASCULAR: Regular rate and rhythm. Normal S1 and S2. ABDOMEN: Normoactive bowel sounds, soft, nontender and nondistended. EXTREMITIES: No edema. NEUROLOGIC: Somnolent but arousable. Oriented to person and place. LABORATORY DATA: WBC 5.2, hemoglobin 8.8, hematocrit 78 and platelets 246 with MCV 70. Sodium 140, potassium 2.7, chloride 106, bicarb 30, BUN 32, creatinine 1.3 and glucose 95. Blood cultures with no growth to date. Urine culture with no growth to date. ASSESSMENT: The patient is a 77-year-old woman with multiple medical comorbidities who was admitted to the ICU with UTI with sepsis, metabolic acidosis and JORDYN. PLAN: 1. UTI with sepsis. Input from Dr. Sprague noted. The patient remains on Cefepime 1 g IV daily. Blood and urine cultures were negative and she remains afebrile. Continue with antimicrobials as per Dr. Sprague. 2. JORDYN, consider secondary to prerenal azotemia vs UTI, improving. Input from Dr. Breaux noted. Continue with current care. Continue to monitor strict I&O's, renally dose medications and avoid nephrotoxins. 3. Metabolic acidosis, resolved. Continue with care as per Dr. Breaux. 4. Iron-deficiency anemia (baseline Hb 7-8). The patient is s/p transfusion of 1 unit PRBCs. Will continue monitor CBC and transfuse as needed. Evaluation with Dr. Riojas is pending. 5. CAD s/p PCI with stent placement. Continue Aspirin 81 mg p.o. daily and Plavix 75 mg p.o. daily. 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 Toprol XL remains on hold given borderline low blood pressure. 6. COPD. Continue supplemental oxygen and bronchodilators as needed. 7. Hypertension. As above, Toprol XL remains on hold given borderline low blood pressure. 8. Anxiety disorder. Continue Ativan 1 mg IV q. 4 hours p.r.n. 9. Prophylaxis. GI prophylaxis not indicated as the patient is eating. Continue with heparin for DVT prophylaxis. CODE STATUS: Full code. Lino Jane MD MTDD
--- NOTE | 2018-05-02 13:25 | CP.PCM.PN ---
Subjective - Date & Time of Evaluation Date of Evaluation: 05/02/18 Time of Evaluation: 10:20 - Subjective Subjective: Patient is feeling better, no fevers, no abdominal pain. Objective - Vital Signs/Intake and Output Vital Signs (last 24 hours): Temp Pulse Resp BP Pulse Ox 99 F 96 H 23 147/65 93 L 05/01/18 05:10 05/01/18 14:00 05/01/18 14:00 05/01/18 14:00 05/01/18 14:00 Intake and Output: 05/01/18 05/01/18 06:59 18:59 Intake Total 1600 Output Total 1100 Balance 500 - Medications Medications: Current Medications Albuterol/Ipratropium (Duoneb 3 Mg/0.5 Mg (3 Ml) Ud) 3 ml IH Q2H PRN PRN Reason: Shortness of Breath Aspirin (Aspirin Chewable) 81 mg PO DAILY [facility] Last Admin: 05/01/18 10:40 Dose: 81 mg Clopidogrel Bisulfate (Plavix) 75 mg PO DAILY [facility] Last Admin: 05/01/18 10:40 Dose: 75 mg Ferrous Sulfate (Feosol) 324 mg PO TID LUANA Last Admin: 05/01/18 14:06 Dose: 324 mg Heparin Sodium (Porcine) (Heparin) 5,000 units SC Q8H LUANA; Protocol Last Admin: 05/01/18 10:40 Dose: 5,000 units Cefepime HCl (Maxipime 1gm) 1 gm in 100 mls @ 100 mls/hr IVPB Q24H LUANA; Protocol Stop: 05/05/18 17:31 Last Admin: 04/30/18 18:40 Dose: 100 mls/hr Sodium Bicarbonate 75 meq/ (Sodium Chloride) 1,075 mls @ 75 mls/hr IV .[id number] LUANA Lorazepam (Ativan) 1 mg IVP Q4H PRN; Protocol PRN Reason: Anxiety Last Admin: 05/01/18 03:00 Dose: 1 mg - Labs Labs: 05/01/18 05:00 05/01/18 05:00 PT 11.8 SECONDS (9.4-12.5) 04/29/18 16:58 INR 1.06 04/29/18 16:58 APTT 31.3 Seconds (26.9-38.3) 04/29/18 16:58 - Constitutional Appears: Chronically Ill - Head Exam Head Exam: NORMAL INSPECTION - Respiratory Exam Respiratory Exam: Decreased Breath Sounds - Cardiovascular Exam Cardiovascular Exam: +S1, +S2 - GI/Abdominal Exam GI & Abdominal Exam: Soft. absent: Tenderness Assessment and Plan - Assessment and Plan (Free Text) Plan: Assessment SIRS with acute renal failure and metabolic acidosis, R/O sepsis from UTI (patient was on Ciprofloxacin as an outpatient) CAD PVD history of UTI HTN chronic anemia history of diverticulitis COPD S/P appendectomy S/P partial thyroidectomy S/P colostomy S/P hysterectomy Plan continue Cefepime day 3 - urine cx are negative but patient was on Cipro as an outpatient prior to the urine cx; target 7 days of antibiotics will continue to monitor clinically
[2018-05-02] MEDS ORDERED: Potassium Chloride 40 mEq/30 ml LIQ UD PO ONE (13:59)
[2018-05-02 14:50] LABS: CALCIUM 8.1 mg/dL (8.4-10.5)
[2018-05-02] MEDS ORDERED: Potassium Chloride 40 mEq/30 ml LIQ UD PO STA (15:03)
--- NOTE | 2018-05-02 16:11 | CP.CCUPN ---
<Galen Ruiz - Last Filed: 05/02/18 16:06> CCU Subjective - Physician Review Subjective (Free Text): 05/02/18 16:06 CRITICAL CARE PROGRESS NOTE FOR DR. NEGRITO Ruiz PGY1 Pt seen and examined at bedside this am. No respiratory distress. Tolerating diet. Denies 12 point ROS CCU Objective - Vital Signs / Intake & Output Vital Signs (Last 4 hours): Vital Signs Pulse Resp BP Pulse Ox 05/02/18 15:00 94 H 25 H 151/76 H 84 L 05/02/18 14:05 69 45 H 05/02/18 13:02 104 H 18 154/95 H 92 L Intake and Output (Last 8hrs): Intake & Output 05/02/18 05/02/18 05/02/18 06:59 14:59 22:59 Intake Total 1185 Output Total 2200 Balance -1015 Weight 61.326 kg Intake: IV 825 Right Forearm 825 Oral 360 Output: Urine 2200 Urethral (Rose) 2200 Other: # Bowel Movements 2 - Physical Exam Head: Positive for: Atraumatic, Normocephalic Pupils: Positive for: PERRL Extroacular Muscles: Positive for: EOMI Conjunctiva: Positive for: Normal Ears: Positive for: NORMAL TM, Normal Canal. Negative for: Erythema, TM Bulging Mouth: Positive for: Moist Mucous Membranes Pharnyx: Negative for: ERYTHEMA, EXUDATE, TONSILS ENLARGED Respiratory/Chest: Positive for: Good Air Exchange, Wheezes (trace mild bilateral end expiratory wheezing). Negative for: Respiratory Distress, Accessory Muscle Use, Decreased Breath Sounds, Rales, Retracting, Rhonchi, Tachypneic, Tender to Palpation Cardiovascular: Positive for: Regular Rate and Rhythm, Normal S1, S2. Negative for: Murmurs Abdomen: Negative for: Tenderness, Distention, Peritoneal Signs, Rebound, Guarding Upper Extremity: Positive for: Normal Inspection. Negative for: Cyanosis, Edema Lower Extremity: Positive for: Normal Inspection. Negative for: Edema Neurological: Positive for: GCS=15, CN II-XII Intact, Speech Normal, Motor Func Grossly Intact Skin: Positive for: Warm, Dry, Normal Color. Negative for: Rashes Psychiatric: Positive for: Alert, Oriented x 3, Normal Insight, Normal Concentration - Medications Active Medications: Active Medications Generic Name Dose Route Start Last Admin Trade Name Freq PRN Reason Stop Dose Admin Albuterol/Ipratropium 3 ml 05/01/18 15:21 05/02/18 14:24 Duoneb 3 Mg/0.5 Mg (3 Ml) Ud IH 3 ml Q2H PRN Administration Shortness of Breath Aspirin 81 mg 04/30/18 10:00 05/02/18 09:15 Aspirin Chewable PO 81 mg DAILY LUANA Administration Clopidogrel Bisulfate 75 mg 04/30/18 10:00 05/02/18 09:15 Plavix PO 75 mg DAILY ULANA Administration Heparin Sodium (Porcine) 5,000 units 05/02/18 10:00 05/02/18 09:15 Heparin SC 5,000 units Q12 LUANA Administration Protocol Cefepime HCl 1 gm in 100 mls @ 100 mls/hr 04/30/18 17:30 05/01/18 19:51 Maxipime 1gm IVPB 05/05/18 17:31 Not Given Q24H LUANA Protocol Lorazepam 1 mg 04/29/18 23:14 05/01/18 03:00 Ativan IVP 1 mg Q4H PRN Administration Anxiety Protocol Ondansetron HCl 4 mg 05/02/18 13:11 05/02/18 14:04 Zofran Inj IVP 4 mg Q4H PRN Administration Nausea/Vomiting - Patient Studies Lab Studies: Microbiology Studies 04/30/18 16:45 MRSA Culture (Admit) - Final Naris MRSA NOT DETECTED 04/30/18 17:24 Blood Culture - Preliminary Blood NO GROWTH AFTER 24 HOURS 04/30/18 17:24 Blood Culture - Preliminary Blood NO GROWTH AFTER 24 HOURS Lab Studies 05/02/18 05/02/18 05/02/18 Range/Units 14:30 14:30 07:16 WBC (4.5-11.0) 10^3/uL RBC (3.5-6.1) 10^6/uL Hgb (12.0-16.0) g/dL Hct (36.0-48.0) % MCV (80.0-105.0) fl MCH (25.0-35.0) pg MCHC (31.0-37.0) g/dl RDW (11.5-14.5) % Plt Count (120.0-450.0) 10^3/uL MPV (7.0-11.0) fl Neut % (Auto) (50.0-68.0) % Lymph % (Auto) (22.0-35.0) % [place] % (Auto) (1.0-6.0) % Eos % (Auto) (1.5-5.0) % Baso % (Auto) (0.0-3.0) % Lymph # (Auto) (1.2-3.4) [place] # (Auto) (0.1-0.6) Eos # (Auto) (0.0-0.7) Baso # (Auto) (0.0-2.0) K/mm3 Absolute Neuts (auto) (1.4-6.5) Sodium 136 140 (132-148) mmol/L Potassium 3.4 L 2.7 L* D (3.6-5.0) mmol/L Chloride 100 106 (98-107) mmol/L Carbon Dioxide 31 30 (21-33) mmol/L Anion Gap 8 L 7 L (10-20) BUN 28 H 32 H (7-21) mg/dL Creatinine 1.2 1.3 H (0.7-1.2) mg/dl Est GFR ( Amer) 53 48 Est GFR (Non-Af Amer) 44 40 Random Glucose 159 H 95 (70-110) mg/dL Calcium 8.1 L 7.5 L (8.4-10.5) mg/dL Phosphorus 2.5 (2.5-4.5) mg/dL Magnesium 2.0 1.4 L (1.7-2.2) mg/dL Albumin 3.5 (3.0-4.8) g/dL Stool Occult Blood (NEGATIVE) Blood Type Antibody Screen Crossmatch BBK History Checked 05/02/18 05/02/18 05/01/18 Range/Units 06:30 00:30 14:20 WBC 5.2 (4.5-11.0) 10^3/uL RBC 4.00 (3.5-6.1) 10^6/uL Hgb 8.8 L (12.0-16.0) g/dL Hct 28.1 L (36.0-48.0) % MCV 70.3 L D (80.0-105.0) fl MCH 22.0 L (25.0-35.0) pg MCHC 31.3 (31.0-37.0) g/dl RDW 18.6 H (11.5-14.5) % Plt Count 246 (120.0-450.0) 10^3/uL MPV 10.2 (7.0-11.0) fl Neut % (Auto) 62.4 (50.0-68.0) % Lymph % (Auto) 20.5 L (22.0-35.0) % [place] % (Auto) 16.1 H (1.0-6.0) % Eos % (Auto) 0.8 L (1.5-5.0) % Baso % (Auto) 0.2 (0.0-3.0) % Lymph # (Auto) 1.1 L (1.2-3.4) [place] # (Auto) 0.8 H (0.1-0.6) Eos # (Auto) 0.0 (0.0-0.7) Baso # (Auto) 0.01 (0.0-2.0) K/mm3 Absolute Neuts (auto) 3.26 (1.4-6.5) Sodium (132-148) mmol/L Potassium (3.6-5.0) mmol/L Chloride (98-107) mmol/L Carbon Dioxide (21-33) mmol/L Anion Gap (10-20) BUN (7-21) mg/dL Creatinine (0.7-1.2) mg/dl Est GFR ( Amer) Est GFR (Non-Af Amer) Random Glucose (70-110) mg/dL Calcium (8.4-10.5) mg/dL Phosphorus (2.5-4.5) mg/dL Magnesium (1.7-2.2) mg/dL Albumin (3.0-4.8) g/dL Stool Occult Blood Negative (NEGATIVE) Blood Type AB POSITIVE Antibody Screen Negative Crossmatch See Detail BBK History Checked Patient has bt Laboratory Results - last 24 hr 05/01/18 05/02/18 05/02/18 14:20 00:30 06:30 WBC 5.2 RBC 4.00 Hgb 8.8 L Hct 28.1 L MCV 70.3 L D MCH 22.0 L MCHC 31.3 RDW 18.6 H Plt Count 246 MPV 10.2 Neut % (Auto) 62.4 Lymph % (Auto) 20.5 L [place] % (Auto) 16.1 H Eos % (Auto) 0.8 L Baso % (Auto) 0.2 Lymph # (Auto) 1.1 L [place] # (Auto) 0.8 H Eos # (Auto) 0.0 Baso # (Auto) 0.01 Absolute Neuts (auto) 3.26 Sodium Potassium Chloride Carbon Dioxide Anion Gap BUN Creatinine Est GFR ( Amer) Est GFR (Non-Af Amer) Random Glucose Calcium Phosphorus Magnesium Albumin Stool Occult Blood Negative Blood Type AB POSITIVE Antibody Screen Negative Crossmatch See Detail BBK History Checked Patient has bt 05/02/18 05/02/18 05/02/18 07:16 14:30 14:30 WBC RBC Hgb Hct MCV MCH MCHC RDW Plt Count MPV Neut % (Auto) Lymph % (Auto) [place] % (Auto) Eos % (Auto) Baso % (Auto) Lymph # (Auto) [place] # (Auto) Eos # (Auto) Baso # (Auto) Absolute Neuts (auto) Sodium 140 136 Potassium 2.7 L* D 3.4 L Chloride 106 100 Carbon Dioxide 30 31 Anion Gap 7 L 8 L BUN 32 H 28 H Creatinine 1.3 H 1.2 Est GFR ( Amer) 48 53 Est GFR (Non-Af Amer) 40 44 Random Glucose 95 159 H Calcium 7.5 L 8.1 L Phosphorus 2.5 Magnesium 1.4 L 2.0 Albumin 3.5 Stool Occult Blood Blood Type Antibody Screen Crossmatch BBK History Checked Radiology Impressions: Radiology Impressions Chest X-Ray 05/01/18 15:21 IMPRESSION: No active disease. Fingerstick Blood Sugar Results: 100 Critical Care Progress Note - Nutrition Nutrition: Nutrition Category Date Time Status Heart Healthy Diet [DIET] Diets 04/29/18 Dinner Active Assessment/Plan - Assessment and Plan (Free Text) Assessment: 62 y/o F with PMH of CAD s/p stent, COPD, SONIA and recurrent admitted to ICU for acute respiratory distress in the setting of UTI Plan: Renal insufficiency metabolic acidosis resolved Likely pre-renal JORDYN improving followup urine electrolytes No longer requires bicarb drip nephrology following UTI cultures have been negative so far continue cefepime ID following appreciate recs Microcytic Iron Deficiency Anemia MCV: 70 s/p 1u pRBC continue to monitor CBCs CAD continue aspirin/plavix statin on hold d/t hx of myopathy b-mita on hold d/t hypotension cardiology following COPD O2 via NC Continue duoneb treatments Elevated D-dimer f/u LE u/s DVT/GI: Hep/SCD Dispo: Pt is feeling much better. She is not having respiratory distress. Pt no longer requires ICU care. Pt to be transferred to med/surg. Please re-consult if necessary Case seen, examined and discussed with attending physician, Dr. Negrito Ruiz PGY1 <Leland Mahan - Last Filed: 05/02/18 17:08> CCU Objective - Vital Signs / Intake & Output Vital Signs (Last 4 hours): Vital Signs Pulse Resp BP Pulse Ox 05/02/18 15:16 89 05/02/18 15:00 94 H 25 H 151/76 H 84 L 05/02/18 14:05 69 45 H Intake and Output (Last 8hrs): Intake & Output 05/02/18 05/02/18 05/02/18 06:59 14:59 22:59 Intake Total 1185 Output Total 2200 Balance -1015 Weight 61.326 kg Intake: IV 825 Right Forearm 825 Oral 360 Output: Urine 2200 Urethral (Rose) 2200 Other: # Bowel Movements 2 - Medications Active Medications: Active Medications Generic Name Dose Route Start Last Admin Trade Name Freq PRN Reason Stop Dose Admin Albuterol/Ipratropium 3 ml 05/01/18 15:21 05/02/18 14:24 Duoneb 3 Mg/0.5 Mg (3 Ml) Ud IH 3 ml Q2H PRN Administration Shortness of Breath Aspirin 81 mg 04/30/18 10:00 05/02/18 09:15 Aspirin Chewable PO 81 mg DAILY LUANA Administration Clopidogrel Bisulfate 75 mg 04/30/18 10:00 05/02/18 09:15 Plavix PO 75 mg DAILY LUANA Administration Heparin Sodium (Porcine) 5,000 units 05/02/18 10:00 05/02/18 09:15 Heparin SC 5,000 units Q12 LUANA Administration Protocol Cefepime HCl 1 gm in 100 mls @ 100 mls/hr 04/30/18 17:30 05/02/18 16:34 Maxipime 1gm IVPB 05/05/18 17:31 100 mls/hr Q24H LUANA Administration Protocol Lorazepam 1 mg 04/29/18 23:14 05/01/18 03:00 Ativan IVP 1 mg Q4H PRN Administration Anxiety Protocol Ondansetron HCl 4 mg 05/02/18 13:11 05/02/18 14:04 Zofran Inj IVP 4 mg Q4H PRN Administration Nausea/Vomiting - Patient Studies Lab Studies: Microbiology Studies 04/30/18 16:45 MRSA Culture (Admit) - Final Naris MRSA NOT DETECTED 04/30/18 17:24 Blood Culture - Preliminary Blood NO GROWTH AFTER 24 HOURS 04/30/18 17:24 Blood Culture - Preliminary Blood NO GROWTH AFTER 24 HOURS Lab Studies 05/02/18 05/02/18 05/02/18 Range/Units 14:30 14:30 07:16 WBC (4.5-11.0) 10^3/uL RBC (3.5-6.1) 10^6/uL Hgb (12.0-16.0) g/dL Hct (36.0-48.0) % MCV (80.0-105.0) fl MCH (25.0-35.0) pg MCHC (31.0-37.0) g/dl RDW (11.5-14.5) % Plt Count (120.0-450.0) 10^3/uL MPV (7.0-11.0) fl Neut % (Auto) (50.0-68.0) % Lymph % (Auto) (22.0-35.0) % [place] % (Auto) (1.0-6.0) % Eos % (Auto) (1.5-5.0) % Baso % (Auto) (0.0-3.0) % Lymph # (Auto) (1.2-3.4) [place] # (Auto) (0.1-0.6) Eos # (Auto) (0.0-0.7) Baso # (Auto) (0.0-2.0) K/mm3 Absolute Neuts (auto) (1.4-6.5) Sodium 136 140 (132-148) mmol/L Potassium 3.4 L 2.7 L* D (3.6-5.0) mmol/L Chloride 100 106 (98-107) mmol/L Carbon Dioxide 31 30 (21-33) mmol/L Anion Gap 8 L 7 L (10-20) BUN 28 H 32 H (7-21) mg/dL Creatinine 1.2 1.3 H (0.7-1.2) mg/dl Est GFR ( Amer) 53 48 Est GFR (Non-Af Amer) 44 40 Random Glucose 159 H 95 (70-110) mg/dL Calcium 8.1 L 7.5 L (8.4-10.5) mg/dL Phosphorus 2.5 (2.5-4.5) mg/dL Magnesium 2.0 1.4 L (1.7-2.2) mg/dL Albumin 3.5 (3.0-4.8) g/dL Stool Occult Blood (NEGATIVE) Crossmatch 05/02/18 05/02/18 05/01/18 Range/Units 06:30 00:30 14:20 WBC 5.2 (4.5-11.0) 10^3/uL RBC 4.00 (3.5-6.1) 10^6/uL Hgb 8.8 L (12.0-16.0) g/dL Hct 28.1 L (36.0-48.0) % MCV 70.3 L D (80.0-105.0) fl MCH 22.0 L (25.0-35.0) pg MCHC 31.3 (31.0-37.0) g/dl RDW 18.6 H (11.5-14.5) % Plt Count 246 (120.0-450.0) 10^3/uL MPV 10.2 (7.0-11.0) fl Neut % (Auto) 62.4 (50.0-68.0) % Lymph % (Auto) 20.5 L (22.0-35.0) % [place] % (Auto) 16.1 H (1.0-6.0) % Eos % (Auto) 0.8 L (1.5-5.0) % Baso % (Auto) 0.2 (0.0-3.0) % Lymph # (Auto) 1.1 L (1.2-3.4) [place] # (Auto) 0.8 H (0.1-0.6) Eos # (Auto) 0.0 (0.0-0.7) Baso # (Auto) 0.01 (0.0-2.0) K/mm3 Absolute Neuts (auto) 3.26 (1.4-6.5) Sodium (132-148) mmol/L Potassium (3.6-5.0) mmol/L Chloride (98-107) mmol/L Carbon Dioxide (21-33) mmol/L Anion Gap (10-20) BUN (7-21) mg/dL Creatinine (0.7-1.2) mg/dl Est GFR ( Amer) Est GFR (Non-Af Amer) Random Glucose (70-110) mg/dL Calcium (8.4-10.5) mg/dL Phosphorus (2.5-4.5) mg/dL Magnesium (1.7-2.2) mg/dL Albumin (3.0-4.8) g/dL Stool Occult Blood Negative (NEGATIVE) Crossmatch See Detail Laboratory Results - last 24 hr 05/01/18 05/02/18 05/02/18 14:20 00:30 06:30 WBC 5.2 RBC 4.00 Hgb 8.8 L Hct 28.1 L MCV 70.3 L D MCH 22.0 L MCHC 31.3 RDW 18.6 H Plt Count 246 MPV 10.2 Neut % (Auto) 62.4 Lymph % (Auto) 20.5 L [place] % (Auto) 16.1 H Eos % (Auto) 0.8 L Baso % (Auto) 0.2 Lymph # (Auto) 1.1 L [place] # (Auto) 0.8 H Eos # (Auto) 0.0 Baso # (Auto) 0.01 Absolute Neuts (auto) 3.26 Sodium Potassium Chloride Carbon Dioxide Anion Gap BUN Creatinine Est GFR ( Amer) Est GFR (Non-Af Amer) Random Glucose Calcium Phosphorus Magnesium Albumin Stool Occult Blood Negative Crossmatch See Detail 05/02/18 05/02/18 05/02/18 07:16 14:30 14:30 WBC RBC Hgb Hct MCV MCH MCHC RDW Plt Count MPV Neut % (Auto) Lymph % (Auto) [place] % (Auto) Eos % (Auto) Baso % (Auto) Lymph # (Auto) [place] # (Auto) Eos # (Auto) Baso # (Auto) Absolute Neuts (auto) Sodium 140 136 Potassium 2.7 L* D 3.4 L Chloride 106 100 Carbon Dioxide 30 31 Anion Gap 7 L 8 L BUN 32 H 28 H Creatinine 1.3 H 1.2 Est GFR ( Amer) 48 53 Est GFR (Non-Af Amer) 40 44 Random Glucose 95 159 H Calcium 7.5 L 8.1 L Phosphorus 2.5 Magnesium 1.4 L 2.0 Albumin 3.5 Stool Occult Blood Crossmatch Critical Care Progress Note - Nutrition Nutrition: Nutrition Category Date Time Status Heart Healthy Diet [DIET] Diets 04/29/18 Dinner Active Addendum Addendum: 05/02/18 17:08 ICU Attending Addendum Patient seen and examined. Case reviewed on round with housestaff. Agree with resident note above with the following additions/exceptions 62F with PMH of CAD s/p stent, COPD, admitted for acute respiratory distress and UTI d/c biarb drip as metabolic acidosis resolved id managing abx potassium replaced, repeat 3.4 no longer in resp distress stable for transfer out of ICU Rest of care as above in housestaff note Leland Mahan MD Pulmonary Critical Care Attending
[2018-05-02] MEDS: Cefepime 1gm in NS 100ml 1 GM/100 ML BAG IVPB SCH (16:34)
--- NOTE | 2018-05-02 18:45 | US ---
HISTORY: Leg pain and swelling. Evaluate for DVT PHYSICIAN(S): Elias Ingram MD. TECHNIQUE: Duplex sonography and color-flow Doppler with graded compression were used to evaluate the deep venous systems of both lower extremities. The exam is limited by edema FINDINGS: The visualized deep venous systems of both lower extremities are sonographically normal and compressible. Normal wave forms and augmentation are seen. There is no sonographic evidence for deep venous thrombosis in the visualized segments of both lower extremities. IMPRESSION: No sonographic evidence for deep venous thrombosis in the visualized segments of both lower extremities.
--- NOTE | 2018-05-02 19:39 | PN ---
DATE: 05/02/2018 REASON FOR CONSULTATION AND FOLLOWUP: Coronary artery disease, peripheral vascular disease, and admitted with altered mental status anemia, acute kidney injury. SUBJECTIVE: The patient is much awake and alert, feeling a bit . Her is at bedside. PHYSICAL EXAMINATION: VITAL SIGNS: Temperature afebrile, heart rate 87, and blood pressure 137/72. HEENT: PERRLA. Extraocular muscles intact. NECK: Supple. No carotid bruit or thyromegaly. CHEST: Clear to auscultation. HEART: S1 and S2 regular. ABDOMEN: Soft. EXTREMITIES: Clubbing and cyanosis ,negative. LABORATORY DATA: Blood workup; WBC 5.8, hemoglobin 8.8, hematocrit 28.1, and platelet count 246. Chemistry shows sodium 133, potassium 3.4, chloride 100, carbon dioxide 31, anion gap of 8, BUN 28, and creatinine 1.2. IMPRESSION: A 77-year-old patient with past medical history significant for anemia, getting B12 shot, history of cerebrovascular disease, peripheral vascular disease, status post angioplasty, history of coronary artery disease status post PTCA, history of chronic obstructive pulmonary disease, history of admitted with altered mental status, acute kidney injury, anemia, status post packed RBC transfusion, kidney function is improving. The patient's last echo on 06/08/2017 shows left ventricle size, ejection fraction 56%, mild mitral regurgitation, trace tricuspid valve regurgitation of 31. The patient's stress test on showed normal ejection fraction 74%. RECOMMENDATIONS: Monitor H and H. Continue antibiotics. Monitor general hydration. We will get echo to assess LV function. Followup with Hematology and Nephrology followup. We will follow with you. Thank you for providing us the opportunity in taking care of the patient, Pura Castle. Samuel Banda MD
--- NOTE | 2018-05-02 20:28 | PN ---
DATE: 05/02/2018 SUBJECTIVE: The patient is seen lying in bed. She is awake, she is alert. She does not appear to be in any kind of distress. She denies any chest pain. She denies any palpitations. PHYSICAL EXAMINATION: GENERAL: Elderly lady lying in bed. VITAL SIGNS: Blood pressure 136/72, heart rate 87, respiratory rate 36, temperature 98.9. HEENT: Normocephalic, atraumatic, positive pallor. NECK: Supple, no JVD. LUNGS: Bilateral equal entry, bilateral equal expansion. CARDIAC: S1, S2, regular rate and rhythm, no murmur, no rub. ABDOMEN: Soft, nondistended, nontender, bowel sounds present. EXTREMITIES: Trace lower extremity edema. INTAKE AND OUTPUT: [id number]. LABORATORY DATA: WBC 5, hemoglobin 8.8, hematocrit 28, platelets 246. Sodium 136, potassium 3.4, chloride 100, CO2 of 31, BUN 28, creatinine 1.2, glucose 159, calcium 8.1. Magnesium 2.0, iron 58, saturation 26, ferritin 200. Stool occults negative. Blood cultures, no growth. Urine culture, no growth. The patient received 1 unit of blood yesterday. Chest x-ray, no active disease. CURRENT MEDICATIONS: Aspirin 81, Ativan, DuoNeb, heparin, cefepime 1 g, Plavix 75, Zofran 4 mg. ASSESSMENT AND PLAN: 1. Acute kidney injury, is nicely resolving, suspect underlying chronic kidney disease stage II/III. 2. Continue antibiotics. 3. Check 24-hour urine for protein and creatinine clearance. 4. Hyperkalemia, is resolved, was all likely related to just dehydration and contraction. 5. Workup anemia, chronic kidney disease, not significant enough to explain anemia perhaps. Check serum protein electrophoresis. Check urine immunofixation. Agree with Rufus. Destiny Breaux MD
--- NOTE | 2018-05-03 09:23 | PN ---
DATE: 05/03/2018 SUBJECTIVE: She is comfortable in bed, in no acute distress. Sepsis improved. Renal functions improved. Hemoglobin today is 8.8, yesterday it was 7.1. She got a dose of Aranesp yesterday. Currently on IV antibiotics for urosepsis. REVIEW OF SYSTEMS: As per HPI. Rest of 12-point review of systems reviewed and negative. PHYSICAL EXAMINATION GENERAL: Comfortable in bed, in no acute distress. VITAL SIGNS: Temperature 98.3, heart rate 100 per minute, blood pressure 160/70, respiratory rate 18 per minute and oxygen saturation 91% on oxygen by nasal cannula. HEENT: Pallor positive. NECK: No lymphadenopathy. CHEST: Air entry present equal bilaterally. No added sound. CARDIOVASCULAR: S1 and S2, normal. No murmur. No gallop. ABDOMEN: Soft and nontender. No hepatosplenomegaly. EXTREMITIES: No edema. CENTRAL NERVOUS SYSTEM: Alert and oriented x3. No focal sensory motor deficit. LABORATORY DATA: White count 5.2, hemoglobin 8.8, hematocrit 28.1 and platelets 246. Sodium 136, potassium 3.4 and creatinine 1.2. Coags within normal limits. Urine culture and blood culture negative. MEDICATIONS: Reviewed. DuoNeb 3 mL every 2 hour p.r.n., Cefepime, Plavix, heparin, Ativan 1 mg every 4 hours and Zofran p.r.n. ASSESSMENT: 1. Urosepsis. 2. Anemia related to chronic kidney disease. 3. Coronary artery disease. 4. Chronic obstructive pulmonary disease. PLAN: She received 1 dose of Aranesp 100 mg subcutaneous yesterday. Continue weekly Aranesp 100 mg subcutaneous, we will continue as outpatient. Erythropoietin support. Renal function is improved. Sepsis improved. Thank you Dr. Jane for allowing us to participate in Ms. Castle's care. Anupama Garcia MD
--- NOTE | 2018-05-03 13:58 | PN ---
SUBJECTIVE: The patient was seen and examined at bedside in the ICU. No acute events overnight. She remains afebrile and hemodynamically stable. OBJECTIVE: VITAL SIGNS: Temperature 98.7, pulse 97, blood pressure 145/71, respiratory rate 20, oxygen saturation 94% on room air. GENERAL: Frail elderly woman, lying in bed, in no apparent distress. HEENT: PERRL, EOMI. No scleral icterus. Conjunctival pallor is noted. NECK: No JVD. LUNGS: Decreased breath sounds at the bases. CARDIOVASCULAR: Regular rate and rhythm. Normal S1 and S2. ABDOMEN: Normoactive bowel sounds, soft, nontender, nondistended. EXTREMITIES: No edema. NEUROLOGIC: Somnolent but arousable, oriented to person and place. LABORATORY DATA: Morning labs are pending. ASSESSMENT: The patient is a 77-year-old woman with multiple medical comorbidities who was admitted to the ICU with UTI with sepsis, metabolic acidosis and acute kidney injury. PLAN: 1. UTI with sepsis. Input from Dr. Sprague noted. Continue Cefepime 1 g IV daily. She remains afebrile and with negative cultures. 2. JORDYN, consider secondary to prerenal azotemia versus UTI, improving. Input from Dr. Breaux noted. Continue with current care. 3. Metabolic acidosis, resolved. 4. Anemia of chronic disease (baseline Hb ~ 8). Input from Dr. Garcia noted. 5. CAD s/p PCI with stent placement. Continue Aspirin 81 mg p.o. daily and Plavix 75 mg p.o. daily. We will continue to monitor hemodynamics and resume Toprol XL 25 mg p.o. daily as tolerated. 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 6. COPD. Continue supplemental oxygen and bronchodilators as needed. 7. Hypertension. As above, we will continue monitor hemodynamics and resume Toprol XL 25 mg p.o. daily as tolerated. 8. Anxiety disorder. Continue Ativan 1 mg IV every 4 hours p.r.n. 9. Prophylaxis. GI prophylaxis not indicated as the patient is eating. Continue with heparin for DVT prophylaxis. CODE STATUS: Full code. Lino Jane MD [email or web address]
--- NOTE | 2018-05-03 14:11 | CP.PCM.APN ---
Subjective - Date & Time of Evaluation Date of Evaluation: 05/03/18 Time of Evaluation: 11:50 - Subjective Subjective: pt seen and examined at bedside pt states she feels much better since admission, offers no complaints at this time Review of Systems - Review of Systems All systems: reviewed and no additional remarkable complaints except Objective - Vital Signs/Intake and Output Vital Signs (last 24 hours): Temp Pulse Resp BP Pulse Ox 98.7 F 97 H 19 145/71 94 L 05/03/18 08:00 05/03/18 08:00 05/03/18 08:00 05/03/18 08:00 05/03/18 08:00 Intake and Output: 05/03/18 05/03/18 06:59 18:59 Intake Total 120 Output Total 500 Balance -380 - Medications Medications: Current Medications Albuterol/Ipratropium (Duoneb 3 Mg/0.5 Mg (3 Ml) Ud) 3 ml IH Q2H PRN PRN Reason: Shortness of Breath Last Admin: 05/02/18 14:24 Dose: 3 ml Aspirin (Aspirin Chewable) 81 mg PO DAILY [facility] Last Admin: 05/03/18 10:48 Dose: 81 mg Cholestyramine Resin (Questran) 4 gm PO BID [facility] Clopidogrel Bisulfate (Plavix) 75 mg PO DAILY [facility] Last Admin: 05/03/18 10:48 Dose: 75 mg Heparin Sodium (Porcine) (Heparin) 5,000 units SC Q12 [facility]; Protocol Last Admin: 05/03/18 10:48 Dose: 5,000 units Cefepime HCl (Maxipime 1gm) 1 gm in 100 mls @ 100 mls/hr IVPB Q24H [facility]; Protocol Stop: 05/05/18 17:31 Last Admin: 05/02/18 16:34 Dose: 100 mls/hr Lisinopril (Zestril) 20 mg PO DAILY [facility] Lorazepam (Ativan) 1 mg IVP Q4H PRN; Protocol PRN Reason: Anxiety Last Admin: 05/01/18 03:00 Dose: 1 mg Nystatin (Nystop Topical Powder) 0 gm TOP BID [facility] Ondansetron HCl (Zofran Inj) 4 mg IVP Q4H PRN PRN Reason: Nausea/Vomiting Last Admin: 05/03/18 08:12 Dose: 4 mg - Labs Labs: 05/02/18 06:30 05/02/18 14:30 PT 11.8 SECONDS (9.4-12.5) 04/29/18 16:58 INR 1.06 04/29/18 16:58 APTT 31.3 Seconds (26.9-38.3) 04/29/18 16:58 - Constitutional Appears: No Acute Distress - Respiratory Exam Respiratory Exam: NORMAL BREATHING PATTERN - Cardiovascular Exam Cardiovascular Exam: +S1, +S2 - GI/Abdominal Exam GI & Abdominal Exam: Soft - Extremities Exam Extremities Exam: Normal Capillary Refill - Neurological Exam Neurological Exam: Alert, Awake (forgetful ) - Psychiatric Exam Psychiatric exam: Normal Affect, Normal Mood Assessment and Plan - Assessment and Plan (Free Text) Plan: ITS Impressions Chest X-Ray 04/29/18 16:38 IMPRESSION: No active disease. Extremity Ultrasound 04/29/18 17:27 IMPRESSION: No sonographic evidence for deep venous thrombosis in the visualized segments of both lower extremities. Abdomen Ultrasound 04/29/18 18:11 IMPRESSION: Small amount of ascites. Fatty infiltration of the liver. Previous cholecystectomy. Chest X-Ray 05/01/18 15:21 IMPRESSION: No active disease. 77 yr old female with pmh sig for copd, Iron def anemia, exsmoker, who [resente for evaluation of lethargy, malaise for several days and had recently undergone outpt therapy for UTI with macrobid and also had URI symptoms 2 days prior to a rrival. Pt found to be anemic and with JORDYN and was admitted for futher eval and treatment # uti with sepsis failed outpt therapy ID consultation and Iv antibiotic regimen Dr bowen recs reviewed # JORDYN nephrology consultation UC negative renal US noted bun/cr improving 24 hr urine in progress # anemia of chronic disease stable h/h at 8.8and 28 Dr Garcia consulted Iron studies noted # cad with stents asa and plavix regimen noted # metabolic acidosis resolved p.t eval notes reviewed and recs for AFSHIN noted when medically stable will continue to follow BPCI/TIC - BPCIA/TIC Educated pt/family on BPCIA/CIR/Med to Bed Programs: Yes Flyers given, including [facility] Beneficiary letter: Yes Pt/family verbalized understanding & agreed to program: Yes
--- NOTE | 2018-05-03 14:15 | PN ---
DATE: 05/03/2018 SUBJECTIVE: The patient was transferred from the ICU earlier today. She remains on antibiotic therapy for a possible outpatient urinary tract infection. The patient is asking me when she can go home. Her renal parameters are significantly improved. She does remain anemic and is being evaluated by Hematology for her anemia. MEDICATIONS: Medication list reviewed. The patient is on aspirin, Ativan, DuoNeb, subcutaneous heparin, Maxipime, Plavix, and Zofran. OBJECTIVE INTAKE/OUTPUT: Intake is 1010, output is 500. VITAL SIGNS: Blood pressure 145/71, temperature is 98.7, pulse is 97, respiratory rate is 19 with a pulse ox of 94%. HEENT: Shows her to be normocephalic, atraumatic. Conjunctivae are pale. Sclerae are nonicteric. NECK: Supple. No neck vein distention. CHEST: Clear to auscultation and percussion. No rales, rhonchi or wheezing. CARDIOVASCULAR: Shows a regular rate and rhythm without murmurs, rubs or gallops. ABDOMEN: Soft. Bowel sounds normal. No rebound, guarding or masses. EXTREMITIES: Show no lower extremity cyanosis, clubbing or edema. LABORATORY DATA AND IMAGING: Admitting abdominal ultrasound showed normal kidneys and possible fatty liver with minimal ascites. CBC: White blood cell count stable 5.2, hemoglobin improved at 8.8 post 1 unit of packed red blood cells. Platelet count is 246,000. Coags are normal. Chemistries show a sodium of 136, potassium is now 3.4, status post supplements. CO2 is 31. BUN is 28 down from a high of 49, her baseline is less than 20. Creatinine is down from 2.9-1.2, her baseline is less than 1. Glucose is 159. Calcium is 8.1, phosphorus 2.5, magnesium level was 1.4, it has been corrected to 2.0. Iron saturations were 26%. Urines were for the most part unremarkable, 2 to 5 white blood cells. Stool occult blood was negative. Microbiology: Urine cultures and blood cultures were negative. ASSESSMENT 1. Acute renal failure, resolving. The patient likely has underlying chronic kidney disease, stage II. Her baseline creatinine is in the 1 range. 2. Possible outpatient urinary tract infection. The patient had been on Cipro. She will complete a course of IV antibiotic therapy. Cultures will likely remain negative as she was on outpatient antibiotics prior to cultures being done in the hospital. 3. History of anemia. Stool occult blood is negative, iron saturations are 26%. The patient has received one dose of Aranesp. She is being evaluated by Hematology. I agree that the severity of anemia is disproportionate to her renal dysfunction. 4. History of chronic obstructive pulmonary disease, currently stable on current medical therapy. 5. History of coronary artery disease, currently stable. 6. The patient denies a history of hypertension, though she had been on lisinopril/hydrochlorothiazide in the outpatient setting. Perhaps that to some extent is responsible for her hypokalemia on admission. Of note, she was also mildly hypomagnesemic. Her magnesium level had been replaced and her magnesium level is now normal. PLAN 1. Status post hyperkalemia, no hypokalemia. I believe that the patient may remain off lisinopril and hydrochlorothiazide. We will need to discuss with Dr. Jane if indeed the patient does have a history of outpatient hypertension. Presently in the hospital, her blood pressure remains in the 140s with diastolics in the 70s. Once her BUN and creatinine fall to normal, I would have no issues placing the patient back on the angiotensin-receptor mita. Alternatively, we could also add a calcium-channel mita. 2. Complete a course of antibiotics for a possible urinary tract infection. 3. Hematology evaluation ongoing for her anemia. 4. Continue to monitor labs on a daily basis throughout the hospitalization. Arnold Urrutia MD
--- NOTE | 2018-05-03 15:08 | PN ---
DATE: 05/03/2018 REASON FOR CONSULTATION: Follow up coronary artery disease, peripheral arterial disease, and admitted with altered mental status, acute kidney injury and low H and H. PHYSICAL EXAMINATION: GENERAL: The patient seems a lot better. Denies any chest pain, shortness of breath or any palpitation. She is awake, alert and oriented, VITAL SIGNS: Temperature afebrile, heart rate 97, and blood pressure 145/71. HEENT: PERRLA. Extraocular muscles intact. NECK: Supple. No carotid bruit or thyromegaly. CHEST: Clear to auscultation. HEART: S1 and S2 regular. ABDOMEN: Soft. EXTREMITIES: Clubbing and cyanosis ,negative. LABORATORY DATA: Blood workup; WBC 5.2, hemoglobin 8.8, hematocrit 28.1, and platelet count 246 as of yesterday. Today, lab is pending. Chemistry shows sodium , potassium 3.4, chloride 100, carbon dioxide 31, anion gap of 8, BUN 28, and creatinine 1.2. IMPRESSION: This is a 77-year-old female with past medical history significant for chronic kidney disease, anemia on vitamin B12 shot, history of cerebrovascular disease, history of peripheral arterial disease, history of angioplasty of lower extremity, history of coronary artery disease, history of percutaneous transluminal coronary angioplasty, history of chronic obstructive pulmonary disease; admitted with altered mental status, acute kidney injury and decreased hemoglobin and hematocrit. The patient was started on intravenous fluids, status post one unit of packed red blood cells. Last echo dated 06/08/2017 shows preserved ejection fraction 56%, mild mitral regurgitation, trace tricuspid regurgitation, right ventricular systolic pressure 31. The patient's stress test on 06/08/2017 showed normal ejection fraction of 74%. RECOMMENDATIONS: Monitor hemoglobin and hematocrit. We will get blood workup today. If it is not done, we will do tomorrow. Continue baby aspirin, continue Plavix, continue lisinopril. We will get echo to assess left ventricular function. We will follow with you. Thank you for providing us the opportunity in taking care of the patient, [place]. Samuel Banda MD
--- NOTE | 2018-05-03 15:09 | CP.PCM.PN ---
Subjective - Date & Time of Evaluation Date of Evaluation: 05/03/18 Time of Evaluation: 08:00 - Subjective Subjective: No fevers, not in distress, not short of breath at rest. Objective - Vital Signs/Intake and Output Vital Signs (last 24 hours): Temp Pulse Resp BP Pulse Ox 98.9 F 87 36 H 136/72 97 05/02/18 04:00 05/02/18 07:00 05/02/18 07:00 05/02/18 07:00 05/02/18 07:00 Intake and Output: 05/02/18 05/02/18 06:59 18:59 Intake Total 1865 Output Total 2200 Balance -335 - Medications Medications: Current Medications Albuterol/Ipratropium (Duoneb 3 Mg/0.5 Mg (3 Ml) Ud) 3 ml IH Q2H PRN PRN Reason: Shortness of Breath Last Admin: 05/02/18 07:32 Dose: 3 ml Aspirin (Aspirin Chewable) 81 mg PO DAILY [facility] Last Admin: 05/02/18 09:15 Dose: 81 mg Clopidogrel Bisulfate (Plavix) 75 mg PO DAILY [facility] Last Admin: 05/02/18 09:15 Dose: 75 mg Heparin Sodium (Porcine) (Heparin) 5,000 units SC Q12 [facility]; Protocol Last Admin: 05/02/18 09:15 Dose: 5,000 units Cefepime HCl (Maxipime 1gm) 1 gm in 100 mls @ 100 mls/hr IVPB Q24H [facility]; Protocol Stop: 05/05/18 17:31 Last Admin: 05/01/18 19:51 Dose: Not Given Lorazepam (Ativan) 1 mg IVP Q4H PRN; Protocol PRN Reason: Anxiety Last Admin: 05/01/18 03:00 Dose: 1 mg Ondansetron HCl (Zofran Inj) 4 mg IVP Q4H PRN PRN Reason: Nausea/Vomiting - Labs Labs: 05/02/18 06:30 05/02/18 07:16 PT 11.8 SECONDS (9.4-12.5) 04/29/18 16:58 INR 1.06 04/29/18 16:58 APTT 31.3 Seconds (26.9-38.3) 04/29/18 16:58 - Constitutional Appears: Chronically Ill - Head Exam Head Exam: NORMAL INSPECTION - Respiratory Exam Respiratory Exam: Decreased Breath Sounds - Cardiovascular Exam Cardiovascular Exam: +S1, +S2 - GI/Abdominal Exam GI & Abdominal Exam: Soft. absent: Tenderness Assessment and Plan - Assessment and Plan (Free Text) Plan: Assessment SIRS with acute renal failure and metabolic acidosis, R/O sepsis from UTI (chandrakant dorian was on Ciprofloxacin as an outpatient) CAD PVD history of UTI HTN chronic anemia history of diverticulitis COPD S/P appendectomy S/P partial thyroidectomy S/P colostomy S/P hysterectomy Plan continue Cefepime day 4 - urine cx are negative but patient was on Cipro as an outpatient prior to the urine cx; target 7 days of antibiotics will continue to monitor clinically
[2018-05-03] MEDS: Nystatin 100,000 Units/gm Topical Pow(15 gm) TOP SCH (18:12)
[2018-05-03] MEDS: Cholestyramine 4 gm/Pkt UD PO SCH (18:16)
[2018-05-03] MEDS: Cefepime 1gm in NS 100ml 1 GM/100 ML BAG IVPB SCH (18:17)
[2018-05-03] MEDS: Albuterol-Ipratrop 3 mg / 0.5 (3 ml) UD IH PRN (22:06)
[2018-05-04] MEDS: Albuterol-Ipratrop 3 mg / 0.5 (3 ml) UD IH PRN ×3 (02:08→19:48)
[2018-05-04 07:43] LABS: HEMOGLOBIN 8.8 g/dL (12.0-16.0); MEAN CELL VOLUME 72.9 fl (80.0-105.0); MEAN CORPUSCULAR HEMOGLOBIN 22.1 pg (25.0-35.0); MEAN CORPUSCULAR HGB CONC 30.3 g/dl (31.0-37.0); MEAN PLATELET VOLUME 9.1 fl (7.0-11.0); RBC 3.98 10^6/uL (3.5-6.1); RED CELL DISTRIBUTION WIDTH 17.9 % (11.5-14.5); WHITE BLOOD COUNT 5.8 10^3/uL (4.5-11.0)
[2018-05-04 08:20] LABS: ALB/GLOB RATIO 1.1 (1.1-1.8); CALCIUM 8.1 mg/dL (8.4-10.5)
--- NOTE | 2018-05-04 09:56 | PN ---
SUBJECTIVE: The patient was seen and examined at bedside on the [facility]. Overnight she was delirious but was easily reoriented. This morning she appears to be at her baseline mentation and reports feeling well and wants to go home. OBJECTIVE: VITAL SIGNS: Temperature 97.9, pulse 80, blood pressure 142/87, respiratory rate 18 and oxygen saturation 94% on room air. GENERAL: Frail elderly woman, lying in bed, in no apparent distress. HEENT: PERRL, EOMI. No scleral icterus. Conjunctival pallor is noted. NECK: No JVD. LUNGS: Clear to auscultation. CARDIOVASCULAR: Regular rate and rhythm. Normal S1 and S2. ABDOMEN: Normoactive bowel sounds, soft, nontender and nondistended. EXTREMITIES: No edema. NEUROLOGIC: Awake and alert, oriented to person and place. No focal motor deficits. LABORATORY DATA: WBC 5.8, hemoglobin 8.8, hematocrit 29 and platelets 242 with MCV 73. Sodium 139, potassium 3.6, chloride 105, bicarb 31, BUN 19, creatinine 1.1 and glucose 90. Urine culture negative. Blood culture negative. Stool occult blood negative. ASSESSMENT: The patient is a 77-year-old woman with multiple medical comorbidities who was initially admitted to ICU with UTI with sepsis, metabolic acidosis and JORDYN who is s/p transfer to the [facility] and demonstrating clinical improvement. PLAN: 1. UTI with sepsis, improving. Input from Dr. Sprague noted. Continue Cefepime 1 g IV daily. Continue to monitor for fever and leukocytosis. 2. JORDYN, consider secondary to prerenal azotemia vs UTI, resolved. Input from Dr. Urrutia noted. Continue with current care. 3. Metabolic acidosis, resolved. 4. Anemia of chronic disease (baseline Hb ~ 8). Input from Dr. Garcia noted. Hemoglobin remained stable. 5. CAD s/p PCI with stent placement. Continue Aspirin 81 mg p.o. daily and Plavix 75 mg p.o. daily. 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 6. COPD. Continue supplemental oxygen and bronchodilators as needed. 7. Hypertension. The patient has been started on Lisinopril 20 mg p.o. daily. Continue to monitor BP and adjust medications as needed. 8. Anxiety disorder. Continue at Ativan 1 mg IV q. 4 hours p.r.n. 9. Prophylaxis. GI prophylaxis not indicated as the patient is eating. Continue with heparin for DVT prophylaxis. CODE STATUS: Full code. Lino Jane MD [place]
[2018-05-04] MEDS: Cholestyramine 4 gm/Pkt UD PO SCH ×2 (10:00→17:19)
[2018-05-04] MEDS: Nystatin 100,000 Units/gm Topical Pow(15 gm) TOP SCH (10:01)
--- NOTE | 2018-05-04 13:38 | PN ---
DATE: 05/04/2018 SUBJECTIVE: The patient is seen sitting in chair. She is awake, she is alert. She is comfortable. She is eating lunch. She complains of abdominal pain. PHYSICAL EXAMINATION: GENERAL: Elderly lady sitting in chair. VITAL SIGNS: Blood pressure 142/87, heart rate 80, respiratory rate 17, temperature 97.9. HEENT: Normocephalic, atraumatic, positive pallor. NECK: Supple, no JVD. LUNGS: Bilateral equal air entry, bilateral equal expansion. CARDIAC: S1, S2. Regular rate and rhythm, no murmur, no rub. ABDOMEN: Soft, nondistended, nontender, bowel sounds present. EXTREMITIES: No lower extremity edema. INTAKE AND OUTPUT: Not charted. LABORATORY DATA: WBC 5.8, hemoglobin 8.8, hematocrit 29, platelets 242. Sodium 139, potassium 3.6, chloride 105, CO2 of 31, BUN 19, creatinine 1.1, glucose 90, calcium 8.1, phosphorus 1.8, magnesium 1.7, albumin 3.0, globulin 2.6. CURRENT MEDICATIONS: Aspirin, Ativan, heparin, Maxipime 1 g daily, Plavix, lisinopril 20, Zofran. ASSESSMENT: 1. Acute kidney injury superimposed on chronic kidney disease stage II, resolving acute kidney injury, creatinine at baseline. 2. Hyperkalemia, resolved. 3. Possible urinary tract infection as outpatient. 4. Chronic severe anemia, microcytic anemia. 5. Chronic obstructive pulmonary disease. 6. Coronary artery disease. 7. History of hypertension. PLAN: 1. Check hemoglobin electrophoresis. 2. Follow up SPEP/urine immunofixation. 3. Okay to continue FILIBERTO inhibitor. 4. Complete antibiotics as per ID recommendations. 5. Intermittent GI blood loss? Destiny Breaux MD
--- NOTE | 2018-05-04 13:52 | CP.PCM.PN ---
Subjective - Date & Time of Evaluation Date of Evaluation: 05/04/18 Time of Evaluation: 11:10 - Subjective Subjective: No fevers, not in distress, no dysuria, no suprapubic or flank pain, no nausea. Objective - Vital Signs/Intake and Output Vital Signs (last 24 hours): Temp Pulse Resp BP Pulse Ox 98 F 96 H 18 147/96 H 98 05/03/18 14:00 05/03/18 14:50 05/03/18 14:00 05/03/18 14:50 05/03/18 14:00 Intake and Output: 05/03/18 05/03/18 06:59 18:59 Intake Total 120 Output Total 500 Balance -380 - Medications Medications: Current Medications Albuterol/Ipratropium (Duoneb 3 Mg/0.5 Mg (3 Ml) Ud) 3 ml IH Q2H PRN PRN Reason: Shortness of Breath Last Admin: 05/02/18 14:24 Dose: 3 ml Aspirin (Aspirin Chewable) 81 mg PO DAILY [facility] Last Admin: 05/03/18 10:48 Dose: 81 mg Cholestyramine Resin (Questran) 4 gm PO BID [facility] Clopidogrel Bisulfate (Plavix) 75 mg PO DAILY [facility] Last Admin: 05/03/18 10:48 Dose: 75 mg Heparin Sodium (Porcine) (Heparin) 5,000 units SC Q12 [facility]; Protocol Last Admin: 05/03/18 10:48 Dose: 5,000 units Cefepime HCl (Maxipime 1gm) 1 gm in 100 mls @ 100 mls/hr IVPB Q24H [facility]; Protocol Stop: 05/05/18 17:31 Last Admin: 05/02/18 16:34 Dose: 100 mls/hr Lisinopril (Zestril) 20 mg PO DAILY [facility] Last Admin: 05/03/18 14:50 Dose: 20 mg Lorazepam (Ativan) 1 mg IVP Q4H PRN; Protocol PRN Reason: Anxiety Last Admin: 05/01/18 03:00 Dose: 1 mg Nystatin (Nystop Topical Powder) 0 gm TOP BID [facility] Ondansetron HCl (Zofran Inj) 4 mg IVP Q4H PRN PRN Reason: Nausea/Vomiting Last Admin: 05/03/18 08:12 Dose: 4 mg - Labs Labs: 05/02/18 06:30 05/02/18 14:30 PT 11.8 SECONDS (9.4-12.5) 04/29/18 16:58 INR 1.06 04/29/18 16:58 APTT 31.3 Seconds (26.9-38.3) 04/29/18 16:58 - Constitutional Appears: Chronically Ill - Head Exam Head Exam: NORMAL INSPECTION - Respiratory Exam Respiratory Exam: Decreased Breath Sounds - Cardiovascular Exam Cardiovascular Exam: +S1, +S2 - GI/Abdominal Exam GI & Abdominal Exam: Soft. absent: Tenderness Assessment and Plan - Assessment and Plan (Free Text) Plan: Assessment SIRS with acute renal failure and metabolic acidosis, R/O sepsis from UTI (patient was on Ciprofloxacin as an outpatient) CAD PVD history of UTI HTN chronic anemia history of diverticulitis COPD S/P appendectomy S/P partial thyroidectomy S/P colostomy S/P hysterectomy Plan continue Cefepime day 5 - urine cx are negative but patient was on Cipro as an outpatient prior to the urine cx; target 7 days of antibiotics will continue to monitor clinically
[2018-05-04] MEDS: Potassium & Sodium Phosphate PO SCH (17:19)
[2018-05-04] MEDS: Cefepime 1gm in NS 100ml 1 GM/100 ML BAG IVPB SCH (17:19)
--- NOTE | 2018-05-04 19:03 | PN ---
DATE: 05/04/2018 LOCATION: The patient is in room 560, bed 2. REASON FOR CONSULTATION AND FOLLOWUP: Coronary artery disease, peripheral arterial disease, admitted with altered mental status, acute kidney injury and severe anemia. PHYSICAL EXAMINATION: GENERAL: The patient is now conscious, alert, denies any chest pain, shortness of breath or palpitation. VITAL SIGNS: Blood pressure is 142/87, respirations 17, pulse is 80, and temperature 97.9. HEENT: Head is normocephalic. Pupils are normal. Conjunctivae are pale. NECK: JVP low. Carotids equal. THORAX: AP diameter normal. LUNGS: Clear. CARDIOVASCULAR: S1 and S2. ABDOMEN: Soft and nontender. No organomegaly. Bowel sounds normal. EXTREMITIES: No clubbing. No cyanosis. LABORATORY DATA: WBC 5.8, hemoglobin 8.8, hematocrit 29, and platelets 242. Sodium 139, potassium 3.6, BUN 19, and creatinine 1.1. Calcium 8.1, phosphorus 1.8, magnesium 1.7. AST, ALT normal. Total protein 5.6 and albumin 3. DIAGNOSES: Acute kidney injury, severe anemia, history of vitamin B12 deficiency, history of cerebrovascular disease, history of peripheral vascular disease, history of angioplasty of the lower extremity, history of coronary artery disease, has coronary angioplasty and sent insertion also, history of chronic obstructive pulmonary disease, altered mental status. The patient had stress test in 05/2017 which was normal with ejection fraction of 74%. Echo in 05/2017 showed also ejection fraction normal 56%, mild mitral regurgitation, tricuspid regurgitation, right ventricular systolic pressure 31 mmHg. PLAN: Echo has been requested. We will repeat echo. We will follow that. In the meantime, we will continue medication as ordered. Lisinopril 20 mg daily, Plavix 75 mg daily, cefepime 1 g intravenous daily, Heparin 5000 units subcu every 12 hours, aspirin 81 mg daily, DuoNeb hand nebulizer therapy and we will follow closely with you. Samuel Begum MD
--- NOTE | 2018-05-04 19:19 | CARD ---
APPROVED REPORT Date of service: 05/03/2018 EXAM: Two-dimensional and M-mode echocardiogram with Doppler and color Doppler. INDICATION CASD, SEPSIS,JORDYN 2D DIMENSIONS Left Atrium (2D)4.0 (1.6-4.0cm)IVSd1.3 (0.7-1.1cm) LVDd3.8 (3.9-5.9cm)PWd1.4 (0.7-1.1cm) LVDs2.8 (2.5-4.0cm)FS (%) 26.8 % LVEF (%)53.2 (>50%) M-Mode DIMENSIONS Aortic Root3.00 (2.2-3.7cm)Aortic Cusp Exc.1.50 (1.5-2.0cm) Aortic Valve AoV Peak Jmziufbo556.0cm/Molly Peak GR.13mmHg Mitral Valve MV E Ujnnnege66.2cm/sMV A Depuxsyk008.0cm/sE/A ratio0.9 TDI Lateral E' Peak V9.94cm/sMedial E' Peak V5.17cm/sE/Lateral E'10.0 E/Medial E'19.2 Pulmonary Valve PV Peak Nvazadwm86.9cm/sPV Peak Grad.3mmHg Tricuspid Valve TR Peak Pzlvquls701pf/sRAP [id number] Peak Gr.20mmHg [id number] LEFT VENTRICLE The left ventricle is normal size. There is mild concentric left ventricular hypertrophy. Left ventricle systolic function is low normal.EF-50-55% There is mild hypokinesis in the apical anterior wall. Transmitral Doppler flow pattern is Grade III-reversible restrictive diastolic dysfunction. No left ventricle thrombus noted on this study. There is no ventricular septal defect visualized. There is no left ventricular aneurysm. There is no mass noted in the left ventricle. RIGHT VENTRICLE The right ventricle is normal size. There is normal right ventricular wall thickness. The right ventricular systolic function is normal. ATRIA The left atrium is borderline dilated. The right atrium size is normal. The interatrial septum is intact with no evidence for an atrial septal defect. AORTIC VALVE The aortic valve is thickened but opens well. No aortic regurgitation is present. There is no aortic valvular stenosis. There is no aortic valvular vegetation. MITRAL VALVE The mitral valve is thickened but opens well. Mitral regurgitation is mild. There is no mitral valve stenosis. There is no evidence of mitral valve prolapse. TRICUSPID VALVE The tricuspid valve leaflets are thickened , but open well. There is trace to mild tricuspid regurgitation.RVSP-30 mmof hg. There is no tricuspid valve stenosis. There is no tricuspid valve prolapse or vegetation. PULMONIC VALVE The pulmonary valve is normal in structure. There is trace pulmonic valvular regurgitation. There is no pulmonic valvular stenosis. GREAT VESSELS The aortic root is normal in size. The ascending aorta is normal in size. The pulmonary artery is normal. The IVC is normal in size and collapses >50% with inspiration. PERICARDIAL EFFUSION There is no pleural effusion. There is no pericardial effusion. <Conclusion> Normal chamber Size. EF-50-55% Mitral regurgitation is mild. There is trace to mild tricuspid regurgitation.RVSP-30 mmof hg. The IVC is normal in size and collapses >50% with inspiration. There is no pericardial effusion. No Vegetation or thrombus noted.
[2018-05-04] MEDS: Acetylcysteine 20% Inhal Soln (4ml) IH SCH (19:48)
[2018-05-04 22:45] LABS: MCH 22.8 pg (27.0-33.0); MCV 72.8 fL (80.0-100.0)
[2018-05-05 07:07] LABS: HEMOGLOBIN 8.5 g/dL (12.0-16.0); MEAN CELL VOLUME 73.5 fl (80.0-105.0); MEAN CORPUSCULAR HEMOGLOBIN 22.1 pg (25.0-35.0); MEAN PLATELET VOLUME 9.4 fl (7.0-11.0); RBC 3.85 10^6/uL (3.5-6.1)
[2018-05-05] MEDS: Acetylcysteine 20% Inhal Soln (4ml) IH SCH ×3 (07:12→19:24)
[2018-05-05] MEDS: Albuterol-Ipratrop 3 mg / 0.5 (3 ml) UD IH PRN ×3 (07:12→19:24)
[2018-05-05 07:19] LABS: ALB/GLOB RATIO 1.1 (1.1-1.8); CALCIUM 8.2 mg/dL (8.4-10.5)
[2018-05-05] MEDS: Cholestyramine 4 gm/Pkt UD PO SCH ×2 (10:50→17:48)
[2018-05-05] MEDS: Potassium & Sodium Phosphate PO SCH ×2 (10:50→17:48)
--- NOTE | 2018-05-05 11:33 | CP.PCM.PN ---
Subjective - Date & Time of Evaluation Date of Evaluation: 05/05/18 Time of Evaluation: 06:45 - Subjective Subjective: Awake, alert, no distress Reason for consultation and follow up: Cardiac evaluation of shortness of breath, history coronary artery disease with stents, COPD, recurrent urinary tract infection, Seen and examined by me and Dr. Banda Objective - Vital Signs/Intake and Output Vital Signs (last 24 hours): Temp Pulse Resp BP Pulse Ox 98.4 F 86 16 151/76 H 95 05/05/18 06:00 05/05/18 10:50 05/05/18 06:00 05/05/18 10:50 05/05/18 06:00 Intake and Output: 05/05/18 05/05/18 06:59 18:59 Intake Total 540 Output Total 100 Balance 440 - Medications Medications: Current Medications Acetaminophen (Tylenol 325mg Tab) 650 mg PO Q6H PRN PRN Reason: Pain, moderate (4-7) Last Admin: 05/04/18 14:22 Dose: 650 mg Acetylcysteine (Acetylcysteine 20%) 4 ml IH [id number] [facility] Last Admin: 05/05/18 07:12 Dose: 4 ml Albuterol/Ipratropium (Duoneb 3 Mg/0.5 Mg (3 Ml) Ud) 3 ml IH Q2H PRN PRN Reason: Shortness of Breath Last Admin: 05/05/18 07:12 Dose: 3 ml Aspirin (Aspirin Chewable) 81 mg PO DAILY [facility] Last Admin: 05/05/18 10:50 Dose: 81 mg Cholestyramine Resin (Questran) 4 gm PO BID [facility] Last Admin: 05/05/18 10:50 Dose: 4 gm Clopidogrel Bisulfate (Plavix) 75 mg PO DAILY [facility] Last Admin: 05/05/18 10:50 Dose: 75 mg Heparin Sodium (Porcine) (Heparin) 5,000 units SC Q12 [facility]; Protocol Last Admin: 05/05/18 10:50 Dose: 5,000 units Cefepime HCl (Maxipime 1gm) 1 gm in 100 mls @ 100 mls/hr IVPB Q24H [facility]; Protocol Stop: 05/05/18 17:31 Last Admin: 05/04/18 17:19 Dose: 100 mls/hr Lisinopril (Zestril) 20 mg PO DAILY [facility] Last Admin: 05/05/18 10:50 Dose: 20 mg Lorazepam (Ativan) 1 mg IVP Q4H PRN; Protocol PRN Reason: Anxiety Last Admin: 05/04/18 21:53 Dose: 1 mg Nystatin (Nystop Topical Powder) 0 gm TOP BID [facility] Last Admin: 05/04/18 10:01 Dose: 1 pow Ondansetron HCl (Zofran Inj) 4 mg IVP Q4H PRN PRN Reason: Nausea/Vomiting Last Admin: 05/03/18 08:12 Dose: 4 mg Potassium Phos/Sodium Phos (Neutra-Phos) 1 pkt PO BID [facility] Last Admin: 05/05/18 10:50 Dose: 1 pkt - Labs Labs: 05/05/18 06:55 05/05/18 06:55 PT 11.8 SECONDS (9.4-12.5) 04/29/18 16:58 INR 1.06 04/29/18 16:58 APTT 31.3 Seconds (26.9-38.3) 04/29/18 16:58 - Constitutional Appears: Non-toxic, No Acute Distress - Head Exam Head Exam: NORMAL INSPECTION, NORMOCEPHALIC - Eye Exam Eye Exam: Normal appearance Pupil Exam: NORMAL ACCOMODATION - ENT Exam ENT Exam: Mucous Membranes Moist, Normal Exam - Respiratory Exam Respiratory Exam: Decreased Breath Sounds, NORMAL BREATHING PATTERN - Cardiovascular Exam Cardiovascular Exam: +S1, +S2 - GI/Abdominal Exam GI & Abdominal Exam: Soft, Normal Bowel Sounds - Exam Additional comments: kirkland catheter - Extremities Exam Extremities Exam: Full ROM - Neurological Exam Neurological Exam: Alert, Awake, Oriented x3 - Psychiatric Exam Psychiatric exam: Normal Affect, Normal Mood - Skin Skin Exam: Dry, Normal Color, Warm Assessment and Plan - Assessment and Plan (Free Text) Assessment: A 77 year old female who came in to the ER due to shortness of breath. Had urinary tract infection as out patient and PMD gave her antibiotics. History of hypertension,COPD, asthma,partial thyroidectomy,chronic anemia, diverticulitis, PVD with angioplasty of lower extremities, appendectomy,cholecystectomy, hysterectomy, colon resection with colostomy 10 years ago with reversal of colostomy 6 months after, former smoker. Admitted to ICU for acute kidney injury and metabolic acidosis. Stabilized and now transferred to regular unit. Echo done and showed LVEF 50-55%, mild MR/TR RVSP 30mmHg. No thrombus. Hematology on consult for anemia. Renal on consult. BNP elevated but there is no clinical evidence for congestive heart failure. Chest x ray showed no pulmonary vascular congestion. Cardiac status stable. Plan: Denies shortness of breath Heart rate and blood pressure controlled Cardiac status stable Renal on consult Hematology on consult H/H 8.8/28.3 ID on consult Continue IV antibiotics per ID Continue current treatment On ASA 81 mg daily,Plavix 75 mg daily, Heparin 5000 units every 12 hours Lisinopril 20 mg daily, Neutro-phos 1 pkt BID Will follow up Plan and treatment discussed with Dr. Banda
--- NOTE | 2018-05-05 11:49 | PN ---
SUBJECTIVE: The patient was seen and examined bedside on the [facility]. No acute events overnight. She remains afebrile, hemodynamically stable and with continued improvement in her mentation and clinical status. OBJECTIVE: VITAL SIGNS: Temperature 98.1, pulse 80, blood pressure 156/76, respiratory rate 20, oxygen saturation 99% on room air. GENERAL: Frail elderly woman, lying in bed, in no apparent distress. HEENT: PERRL, EOMI. No scleral icterus. Conjunctival pallor is noted. NECK: No JVD. LUNGS: Clear to auscultation. CARDIOVASCULAR: Regular rate and rhythm. Normal S1, S2. ABDOMEN: Normoactive bowel sounds, soft, nontender, nondistended. EXTREMITIES: No edema. NEUROLOGIC: Awake and alert, oriented to person and place. No focal motor deficits. LABORATORY DATA: WBC 6, hemoglobin 8.5, hematocrit 28, platelets 273, MCV 74. Sodium 130, potassium 3.8, chloride 106, bicarb 28, BUN 20, creatinine 1.1, glucose 88. Blood cultures negative. Urine cultures negative. ASSESSMENT: The patient is a 77-year-old woman with multiple medical comorbidities who was initially admitted to the ICU with UTI with sepsis, metabolic acidosis and JORDYN who is now s/p transfer to the [facility] and demonstrating clinical improvement. PLAN: 1. UTI with sepsis, resolving. Input from Dr. Sprague noted. Continue Cefepime 1 g IV daily to complete a 7 day course (today is day #6 of 7). Continue to monitor for fever and leukocytosis. 2. JORDYN, consider secondary to prerenal azotemia vs UTI, resolved. Input from Dr. Urrutia noted. Continue with current care. 3. Metabolic acidosis, resolved. 4. Anemia of chronic disease (baseline Hb ~ 8). Input from Dr. Garcia noted. Hb stable. Continue with current care. 5. CAD s/p PCI with stent placement. Input from Dr. Begum noted. Continue Aspirin 81 mg p.o. daily and Plavix 75 mg p.o. daily. 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 6. COPD. Continue supplemental oxygen and bronchodilators as needed. 7. Hypertension. Continue Lisinopril 20 mg p.o. daily. 8. Anxiety disorder. Continue Ativan 1 mg IV q. 4 hours p.r.n. 9. Prophylaxis. GI prophylaxis not indicated as the patient is eating. Continue with Heparin for DVT prophylaxis. CODE STATUS: Full code. Lino Jane MD [email or web address]
--- NOTE | 2018-05-05 14:55 | CP.PCM.PN ---
Subjective - Date & Time of Evaluation Date of Evaluation: 05/05/18 Time of Evaluation: 11:55 - Subjective Subjective: Comfortable in bed, afebrile. Objective - Vital Signs/Intake and Output Vital Signs (last 24 hours): Temp Pulse Resp BP Pulse Ox 97.9 F 80 17 142/87 94 L 05/04/18 06:00 05/04/18 09:57 05/04/18 06:00 05/04/18 09:57 05/04/18 06:00 Intake and Output: 05/04/18 05/04/18 06:59 18:59 Intake Total 540 Balance 540 - Medications Medications: Current Medications Acetaminophen (Tylenol 325mg Tab) 650 mg PO Q6H PRN PRN Reason: Pain, moderate (4-7) Albuterol/Ipratropium (Duoneb 3 Mg/0.5 Mg (3 Ml) Ud) 3 ml IH Q2H PRN PRN Reason: Shortness of Breath Last Admin: 05/04/18 02:08 Dose: 3 ml Aspirin (Aspirin Chewable) 81 mg PO DAILY [facility] Last Admin: 05/04/18 09:57 Dose: 81 mg Cholestyramine Resin (Questran) 4 gm PO BID [facility] Last Admin: 05/04/18 10:00 Dose: 4 gm Clopidogrel Bisulfate (Plavix) 75 mg PO DAILY [facility] Last Admin: 05/04/18 09:57 Dose: 75 mg Heparin Sodium (Porcine) (Heparin) 5,000 units SC Q12 [facility]; Protocol Last Admin: 05/04/18 10:01 Dose: 5,000 units Cefepime HCl (Maxipime 1gm) 1 gm in 100 mls @ 100 mls/hr IVPB Q24H [facility]; Protocol Stop: 05/05/18 17:31 Last Admin: 05/03/18 18:17 Dose: 100 mls/hr Lisinopril (Zestril) 20 mg PO DAILY [facility] Last Admin: 05/04/18 09:57 Dose: 20 mg Lorazepam (Ativan) 1 mg IVP Q4H PRN; Protocol PRN Reason: Anxiety Last Admin: 05/03/18 23:59 Dose: 1 mg Nystatin (Nystop Topical Powder) 0 gm TOP BID [facility] Last Admin: 05/04/18 10:01 Dose: 1 pow Ondansetron HCl (Zofran Inj) 4 mg IVP Q4H PRN PRN Reason: Nausea/Vomiting Last Admin: 05/03/18 08:12 Dose: 4 mg Potassium Phos/Sodium Phos (Neutra-Phos) 1 pkt PO BID [facility] - Labs Labs: 05/04/18 07:20 05/04/18 07:20 PT 11.8 SECONDS (9.4-12.5) 04/29/18 16:58 INR 1.06 04/29/18 16:58 APTT 31.3 Seconds (26.9-38.3) 04/29/18 16:58 - Constitutional Appears: No Acute Distress, Chronically Ill - Head Exam Head Exam: NORMAL INSPECTION - Respiratory Exam Respiratory Exam: Decreased Breath Sounds - Cardiovascular Exam Cardiovascular Exam: +S1, +S2 - GI/Abdominal Exam GI & Abdominal Exam: Soft. absent: Tenderness Assessment and Plan - Assessment and Plan (Free Text) Plan: Assessment SIRS with acute renal failure and metabolic acidosis, R/O sepsis from UTI (patient was on Ciprofloxacin as an outpatient) CAD PVD history of UTI HTN chronic anemia history of diverticulitis COPD S/P appendectomy S/P partial thyroidectomy S/P colostomy S/P hysterectomy Plan continue Cefepime day 6 - urine cx are negative but patient was on Cipro as an outpatient prior to the urine cx; target 7 days of antibiotics will continue to monitor clinically
[2018-05-05] MEDS: Cefepime 1gm in NS 100ml 1 GM/100 ML BAG IVPB SCH (17:36)
[2018-05-05] MEDS: Nystatin 100,000 Units/gm Topical Pow(15 gm) TOP SCH (18:10)
--- NOTE | 2018-05-05 20:01 | PN ---
DATE: 05/05/2018 SUBJECTIVE: The patient is seen sitting in chair. She is awake. She is alert. She is comfortable. She does not appear to be in any kind of distress. PHYSICAL EXAMINATION: GENERAL: Elderly lady sitting in chair. VITAL SIGNS: Blood pressure 151/76, heart rate 86, respiratory rate 18, temperature 98.4. HEENT: Normocephalic, atraumatic, positive pallor. NECK: Supple, no JVD. LUNGS: Bilateral equal entry, bilateral equal expansion. EXTREMITIES: No lower edema. LABORATORY DATA: WBC 6, hemoglobin 8.5, hematocrit 28, platelets 273. Sodium 138, potassium 3.8, chloride 106, CO2 28, BUN 20, creatinine 1.1, glucose 88. MEDICATIONS: Medications list reviewed. ASSESSMENT: 1. Acute kidney injury, resolved. 2. Underlying chronic kidney disease stage II, suspect. 3. Hyperkalemia, resolved. 4. Severe anemia, etiology not chronic kidney disease. 5. Chronic obstructive pulmonary disease. PLAN: 1. Stable from the renal standpoint. 2. Needs to complete anemia workup. 3. Discharge planning. Destiny Breaux MD
[2018-05-06] MEDS: Acetylcysteine 20% Inhal Soln (4ml) IH SCH ×3 (01:31→13:27)
[2018-05-06 07:06] LABS: HEMOGLOBIN 9.4 g/dL (12.0-16.0); MEAN CELL VOLUME 73.5 fl (80.0-105.0); MEAN CORPUSCULAR HEMOGLOBIN 22.2 pg (25.0-35.0); MEAN CORPUSCULAR HGB CONC 30.2 g/dl (31.0-37.0); MEAN PLATELET VOLUME 9.3 fl (7.0-11.0); RBC 4.23 10^6/uL (3.5-6.1); RED CELL DISTRIBUTION WIDTH 18.1 % (11.5-14.5); WHITE BLOOD COUNT 6.6 10^3/uL (4.5-11.0)
[2018-05-06 07:43] LABS: ALB/GLOB RATIO 1.2 (1.1-1.8); ALBUMIN 3.7 g/dL (3.0-4.8); ALT/SGPT 38 U/L (7-56); AST/SGOT 51 U/L (14-36); BLOOD UREA NITROGEN 17 mg/dL (7-21); CALCIUM 8.7 mg/dL (8.4-10.5); GFR NON-AFRICAN AMERICAN > 60
[2018-05-06 08:51] VITALS: BP 163/87; PULSE 97; RESP 20; TEMP 98; O2SAT 95
[2018-05-06] MEDS: Potassium & Sodium Phosphate PO SCH (09:18)
[2018-05-06] MEDS: Cholestyramine 4 gm/Pkt UD PO SCH (09:18)
[2018-05-06] MEDS: Nystatin 100,000 Units/gm Topical Pow(15 gm) TOP SCH (09:18)
[2018-05-06 10:22] LABS: HEMOGLOBIN A 94.8 Percent (>96.0); HEMOGLOBIN A2 4.2 Percent (1.8-3.5)
[2018-05-06] MEDS ORDERED: Cefepime 1gm in NS 100ml 1 GM/100 ML BAG IVPB SCH (10:30)
--- NOTE | 2018-05-06 11:23 | DS ---
HISTORY OF PRESENT ILLNESS: The patient is currently in 560, bed 2. The patient has no complaints and there have been no significant events overnight. She finished her cefepime. It has been . PHYSICAL EXAMINATION: VITAL SIGNS: Temperature of 98 degrees Fahrenheit, pulse rate of 97, blood pressure 144/78, O2 saturation of 96% on room air. HEENT: Negative. NECK: Supple with full range of motion. There are no bruits or adenopathy present. LUNGS: Clear bilaterally. HEART: Regular rate and rhythm. ABDOMEN: Soft. It is nontender. There is no organomegaly. NEUROLOGICAL: The patient is intact. LABORATORY DATA: WBC of 6.6, hemoglobin and hematocrit of 9.4 and 31.1 with a chemistry of normal potassium of 3.6, ALT of 51. ASSESSMENT AND PLAN: The patient will be discharged today on her previous medications. She will follow up in the office next week. PROBLEM LISTS: 1. Prerenal azotemia. 2. Sepsis. 3. Anemia. 4. UTI. Jean-Paul Jane MD
--- NOTE | 2018-05-06 12:16 | CP.PCM.PN ---
Subjective - Date & Time of Evaluation Date of Evaluation: 05/06/18 Time of Evaluation: 10:55 - Subjective Subjective: Afebrile, comfortable. Objective - Vital Signs/Intake and Output Vital Signs (last 24 hours): Temp Pulse Resp BP Pulse Ox 98.4 F 86 16 151/76 H 95 05/05/18 06:00 05/05/18 10:50 05/05/18 06:00 05/05/18 10:50 05/05/18 06:00 Intake and Output: 05/05/18 05/05/18 06:59 18:59 Intake Total 540 Output Total 100 Balance 440 - Medications Medications: Current Medications Acetaminophen (Tylenol 325mg Tab) 650 mg PO Q6H PRN PRN Reason: Pain, moderate (4-7) Last Admin: 05/04/18 14:22 Dose: 650 mg Acetylcysteine (Acetylcysteine 20%) 4 ml IH [id number] [facility] Last Admin: 05/05/18 13:21 Dose: 4 ml Albuterol/Ipratropium (Duoneb 3 Mg/0.5 Mg (3 Ml) Ud) 3 ml IH Q2H PRN PRN Reason: Shortness of Breath Last Admin: 05/05/18 13:22 Dose: 3 ml Aspirin (Aspirin Chewable) 81 mg PO DAILY [facility] Last Admin: 05/05/18 10:50 Dose: 81 mg Cholestyramine Resin (Questran) 4 gm PO BID [facility] Last Admin: 05/05/18 10:50 Dose: 4 gm Clopidogrel Bisulfate (Plavix) 75 mg PO DAILY [facility] Last Admin: 05/05/18 10:50 Dose: 75 mg Heparin Sodium (Porcine) (Heparin) 5,000 units SC Q12 [facility]; Protocol Last Admin: 05/05/18 10:50 Dose: 5,000 units Cefepime HCl (Maxipime 1gm) 1 gm in 100 mls @ 100 mls/hr IVPB Q24H [facility]; Protocol Stop: 05/05/18 17:31 Last Admin: 05/04/18 17:19 Dose: 100 mls/hr Lisinopril (Zestril) 20 mg PO DAILY [facility] Last Admin: 05/05/18 10:50 Dose: 20 mg Lorazepam (Ativan) 1 mg IVP Q4H PRN; Protocol PRN Reason: Anxiety Last Admin: 05/04/18 21:53 Dose: 1 mg Nystatin (Nystop Topical Powder) 0 gm TOP BID [facility] Last Admin: 05/04/18 10:01 Dose: 1 pow Ondansetron HCl (Zofran Inj) 4 mg IVP Q4H PRN PRN Reason: Nausea/Vomiting Last Admin: 05/03/18 08:12 Dose: 4 mg Potassium Phos/Sodium Phos (Neutra-Phos) 1 pkt PO BID [facility] Last Admin: 05/05/18 10:50 Dose: 1 pkt - Labs Labs: 05/05/18 06:55 05/05/18 06:55 PT 11.8 SECONDS (9.4-12.5) 04/29/18 16:58 INR 1.06 04/29/18 16:58 APTT 31.3 Seconds (26.9-38.3) 04/29/18 16:58 - Constitutional Appears: Chronically Ill - Head Exam Head Exam: NORMAL INSPECTION - Respiratory Exam Respiratory Exam: Decreased Breath Sounds - Cardiovascular Exam Cardiovascular Exam: +S1, +S2 - GI/Abdominal Exam GI & Abdominal Exam: Soft. absent: Tenderness Assessment and Plan - Assessment and Plan (Free Text) Plan: Assessment SIRS with acute renal failure and metabolic acidosis, consider sepsis from UTI (patient was on Ciprofloxacin as an outpatient), clinically improving CAD PVD history of UTI HTN chronic anemia history of diverticulitis COPD S/P appendectomy S/P partial thyroidectomy S/P colostomy S/P hysterectomy Plan continue Cefepime day 7 - urine cx are negative but patient was on Cipro as an outpatient prior to the urine cx; target 7 days of antibiotics will continue to monitor clinically while the patient is in the hospital
--- NOTE | 2018-05-06 15:46 | PN ---
DATE: 05/06/2018 REASON FOR CONSULTATION AND FOLLOWUP: Coronary artery disease, peripheral arterial disease, admitted with altered mental status, acute kidney injury and severe anemia. SUBJECTIVE: The patient lying flat in bed without any chest pain, shortness of breath and palpitation. PHYSICAL EXAMINATION: VITAL SIGNS: Blood pressure 163/87, respirations 20, pulse 97 and temperature 98. HEENT: Head is normocephalic. Eyes, pupils normal and conjunctivae slightly pale. NECK: JVP low. Carotids equal. THORAX: AP diameter normal. LUNGS: Clear. CARDIOVASCULAR: S1 and S2. ABDOMEN: Soft and nontender. No organomegaly. EXTREMITIES: No clubbing. No cyanosis. LABORATORY DATA: WBC 6.6, hemoglobin 9.4, hematocrit 31.1 and platelets 311. Sodium 139, potassium 3.6, BUN 17 and creatinine 0.9. Creatinine function showed improvement, on admission BUN was 49 and creatinine 2.9. The patient's AST 51, ALT 38, total protein 6.7 and albumin 3.7. DIAGNOSES: Acute kidney injury, severe anemia, history of vitamin B12 deficiency, history of cerebrovascular disease, history of peripheral vascular disease, history of angioplasty of the lower extremity, history of coronary artery disease, history of coronary angioplasty and stent insertion, history of chronic obstructive pulmonary disease and altered mental status. The patient had stress test in 05/2017 which was normal with ejection fraction of 74%. Echo in 05/2017 showed also ejection fraction normal 56%, mild mitral regurgitation, tricuspid regurgitation, right ventricular systolic pressure 31 mmHg. PLAN: The patient's BUN and creatinine has been normalized with therapy. The patient also received blood transfusion for anemia and her hemoglobin also showed improvement as compared to the admission hemoglobin and hematocrit. The patient is on aspirin 81 mg daily. Heparin 5000 units subcutaneous every 12 hour, cefepime 1 g IV every 24 hour, Plavix 75 mg daily and lisinopril 20 mg daily. We will continue present therapy. We will follow with you. Samuel Begum MD
--- NOTE | 2018-05-06 17:06 | PN ---
DATE: 05/06/2018 SUBJECTIVE: The patient is seen sitting in chair. She is awake, she is alert, she is comfortable. PHYSICAL EXAMINATION: GENERAL: Elderly lady sitting in chair. VITAL SIGNS: Blood pressure 163/87, heart rate 97, respiratory rate 20, temperature 98. HEENT: Normocephalic, atraumatic, positive pallor. NECK: Supple, no JVD. LUNGS: Bilateral equal entry, bilateral equal expansion. CARDIAC: S1 and S2, regular rate and rhythm, no murmur, no rub. ABDOMEN: Soft, nondistended, nontender, bowel sounds present. EXTREMITIES: No lower expertise edema. LABORATORY DATA: WBC 6.6, hemoglobin 9.4, hematocrit 31, platelets 311. Sodium 139, potassium 3.6, chloride 105, CO2 of 26, BUN 17, creatinine 0.9, glucose 78, calcium 8.7, albumin 3.7. Urine immunofixation negative. CURRENT MEDICATIONS: Aspirin, Ativan, heparin, Maxipime, Neutra-Phos, nystatin, Plavix, Questran, Tylenol, Zestril 20, Zofran. ASSESSMENT: 1. Acute kidney injury, resolved. 2. Hyperkalemia, resolved. 3. Severe anemia? Etiology not renal insufficiency. 4. Chronic obstructive pulmonary disease. 5. Status post sepsis. PLAN: 1. Stable from the renal standpoint. 2. Complete anemia workup as outpatient. 3. No objection to discharge from the renal standpoint. Destiny Breaux MD
== END 2018-05-06 16:40 | disposition home health service (06) | DRG 871 ==
LOC: ED 16:25 → ERH 18:01 → CCU 21:19 → 5RNO 05-03 09:59
PROVIDERS: ADMIT Internal Medicine; ATTEND Internal Medicine
PROC: 30233N1 Transfusion of Nonautologous Red Blood Cells into Peripheral Vein, Percutaneous Approach (ICD-10-PCS; principal; 2018-05-01)
PROC: 3E0F7GC Introduction of Other Therapeutic Substance into Respiratory Tract, Via Natural or Artificial Opening (ICD-10-PCS; 2018-05-01)
DX: A41.9 Sepsis, unspecified organism (principal); G93.41 Metabolic encephalopathy; N39.0 Urinary tract infection, site not specified; N17.9 Acute kidney failure, unspecified; E87.2 Acidosis; J44.9 Chronic obstructive pulmonary disease, unspecified; E86.0 Dehydration; E87.5 Hyperkalemia; I25.10 Atherosclerotic heart disease of native coronary artery without angina pectoris; N18.2 Chronic kidney disease, stage 2 (mild); I12.9 Hypertensive chronic kidney disease with stage 1 through stage 4 chronic kidney disease, or unspecified chronic kidney disease; E11.51 Type 2 diabetes mellitus with diabetic peripheral angiopathy without gangrene; E11.22 Type 2 diabetes mellitus with diabetic chronic kidney disease; D63.1 Anemia in chronic kidney disease; D50.9 Iron deficiency anemia, unspecified; R79.1 Abnormal coagulation profile; E78.5 Hyperlipidemia, unspecified; E53.8 Deficiency of other specified B group vitamins; E87.6 Hypokalemia; E83.42 Hypomagnesemia; F41.9 Anxiety disorder, unspecified; Z87.440 Personal history of urinary (tract) infections; Z79.02 Long term (current) use of antithrombotics/antiplatelets; Z79.82 Long term (current) use of aspirin; Z95.5 Presence of coronary angioplasty implant and graft; Z87.891 Personal history of nicotine dependence

== ENCOUNTER 2018-08-16 14:46 | Outpatient (CLI) | payer MEDICARE | END 2018-08-16 14:47 | disposition home or self-care (01) | LOC: RAD 14:46 ==